=== PATIENT | male | born 1980 | race African-American/Black ===

== ENCOUNTER 2016-02-25 08:58 | Emergency (ER) | payer MEDICAID ==
[2016-02-25 09:18] VITALS: BP 145/96
--- NOTE | 2016-02-25 10:45 | ED ---
Lower Extremity - HPI Summary HPI Summary: 35yo male presents with left lower extremity pain for the last week. No known injury, but has been walking more than normal. No recent trips or travel. No recent surgery or hospitalization. No h/o DVT. No h/o cancer. No history hypercoagulable disorder. No fevers or chills. No history of leg pain. Pain is sharp with pain with movement. Worse with bending over to put socks/shoes on. Pain starts in the mid calf and radiates up. Patient also states that he has right lower back pain. Denies numbness, tingling or weakness. No medications tried at home. No loss of bowel/bladder function. No known risk factors for pathologic fracture. - History of Current Complaint Chief Complaint: EDExtremityLower Stated Complaint: LT LEG PAIN Pain Intensity: 6 - Allergies/Home Medications Allergies/Adverse Reactions: Allergies Allergy/AdvReac Type Severity Reaction Status Date / Time No Known Allergies Allergy Verified 11/11/15 07:57 PMH/Surg Hx/FS Hx/Imm Hx Endocrine/Hematology History: Denies: Hx Anticoagulant Therapy, Hx Blood Disorders, Hx Blood Transfusions, Hx Bone Marrow Disease, Hx Diabetes, Hx Systemic Lupus Erythematosus, Hx Sickle Cell Disease, Hx Thyroid Disease, Hx Anemia, Hx Unexplained Bleeding, Other Endocrine/Hematological Disorders Cardiovascular History: Reports: Hx Hypertension Denies: Hx Aneurysm, Hx Angina, Hx Angioplasty, Hx Auto Implanted Cardiovert Defib, Hx Cardiac Arrest, Hx Cardiomegaly, Hx Congenital Heart Disease, Hx Congestive Heart Failure, Hx Deep Vein Thrombosis, Hx Embolism, Hx Hypercholesterolemia, Hx Hypotension, Hx Pacemaker/ICD, Hx Peripheral Vascular Disease, Hx Rheumatic Fever, Hx Syncope, Hx Valvular Heart Disease, Other Cardiovascular Problems/Disorders Respiratory History: Reports: Hx Asthma Denies: Hx Chronic Bronchitis, Hx Chronic Obstructive Pulmonary Disease (COPD ), Hx Cystic Fibrosis, Hx Lung Cancer, Hx Pleural Effusion, Hx Pneumonia, Hx Pulmonary Edema, Hx Pulmonary Embolism, Hx Seasonal Allergies, Hx Sleep Apnea, Other Respiratory Problems/Disorders History: Denies: Hx Acute Renal Failure, Hx Benign Prostatic Hyperplasia, Hx Chronic Renal Failure, Hx Dialysis, Hx Kidney Infection, Hx Kidney Stones Musculoskeletal History: Reports: Other Musculoskeletal History - broken ankles when a child, according to patient Denies: Hx Arthritis, Hx Back Problems, Hx Bursitis, Hx Congenital Bone Abnormalities, Hx Fibromyalgia, Hx Gout, Hx Orthopedic Injury, Hx Osteoporosis, Hx Scoliosis, Hx Tendonitis Sensory History: Reports: Hx Contacts or Glasses Denies: Hx Cataracts, Hx Eye Injury, Hx Eye Prosthesis, Hx Glaucoma, Hx Legally Blind, Hx Macular Degeneration, Hx Vision Problem, Hx Deafness, Hx Hearing Aid, Hx Hearing Problem, Other Sensory Impairments Opthamlomology History: Reports: Hx Contacts or Glasses Denies: Hx Cataracts, Hx Eye Injury, Hx Eye Prosthesis, Hx Glaucoma, Hx Legally Blind, Hx Macular Degeneration, Hx Vision Problem, Other Sensory Impairments Neurological History: Denies: Hx Dementia, Hx Headaches, Hx Migraine, Hx Nerve Disease, Hx Seizures , Hx Spinal Cord Injury, Hx Transient Ischemic Attacks (TIA), Other Neuro Impairments/Disorders Psychiatric History: Reports: Hx Anxiety, Hx Depression, Hx Inpatient Treatment , Hx Community Mental Health Tx, Hx Suicide Attempt, Hx Substance Abuse Denies: Hx Attention Deficit Hyperactivity Disorder, Hx Eating Disorder, Hx Panic Disorder, Hx Post Traumatic Stress Disorder, Hx Schizophrenia, Hx Bipolar Disorder, Hx of Violent Episodes Against Others - Cancer History Hx Chemotherapy: No Hx Radiation Therapy: No Hx Palliative Cancer Treatment: No - Surgical History Surgery Procedure, Year, and Place: ankle surgery when a child Hx Anesthesia Reactions: No Infectious Disease History: No Infectious Disease History: Denies: Hx Clostridium Difficile, Hx Hepatitis, Hx Human Immunodeficiency Virus (HIV), Hx of Known/Suspected MRSA, Hx Shingles, Hx Tuberculosis, Hx Known/ Suspected VRE, Hx Known/Suspected VRSA, History Other Infectious Disease, Traveled Outside the [place] in Last 30 Days - Family History Known Family History: Positive: Cardiac Disease, Hypertension, Other - cancer mother - Social History Lives: With Family Alcohol Use: None Alcohol Amount: patient states he has not drank in 2 mths Substance Use Type: Reports: None Substance Use Comment - Amount & Last Used: last use of marijuana and cocaine " 1 mth ago" Hx Tobacco Use: Yes Smoking Status (MU): Heavy Every Day Tobacco Smoker Type: Cigarettes Amount Used/How Often: 20 cigarettes per day Length of Time of Smoking/Using Tobacco: 16 years Have You Smoked in the Last Year: Yes Review of Systems Positive: Other - LLE pain All Other Systems Reviewed And Are Negative: Yes Physical Exam - Summary Physical Exam Summary: GENERAL: Well appearing, No acute distress, well nourished. Normal gait. HEENT: Head atraumatic/normocephalic, EOMI/LEONIE, conjunctiva clear NECK: Supple with normal range of motion during conversation. CARDIAC: RRR without murmur, rub or gallop LUNGS: Clear to auscultation without wheezing, rales or rhonchi. Normal respiratory effort. Breath sounds are symmetrical and equal. ABDOMEN: Abdomen is soft and non-tender. MUSCULOSKELETAL: Moves all extremities well. There is no peripheral edema. Pedal/post tib 2+ pulse bilaterally. Sensation intact. Strength intact. Pain with active SLR, but able to SLR. No passive ROM tenderness. Patient with + homans on the left. Achilles intact with normal thompsons. No joint edema, warmth. FROM of all joints. BACK: no vertebral tenderness. No tenderness of sciatic notch. SKIN: Warm and dry, skin color reflects adequate perfusion. NEUROLOGICAL: Patient is alert and appropriate. Cranial nerves are grossly intact. PSYCHIATRIC: Appropriate affect. Vital Signs On Initial Exam: Initial Vitals Temp Pulse Resp BP Pulse Ox 98.0 F 86 16 145/96 100 02/25/16 09:05 02/25/16 09:05 02/25/16 09:05 02/25/16 09:05 02/25/16 09:05 Diagnostics - Vital Signs Vital Signs Temp Pulse Resp BP Pulse Ox 02/25/16 09:05 98.0 F 86 16 145/96 100 - Laboratory Lab Statement: Any lab studies that have been ordered have been reviewed, and results considered in the medical decision making process. - Ultrasound No standard instances Ultrasound Interpretation: No Acute Changes Ultrasound Interpretation Completed By: Radiologist Re-Evaluation - Re-Evaluation First Eval Change: Improved - improved after toradol use. Second Eval Change: Improved - Normal gait Lower Extremity Course/Dx - Course Assessment/Plan: 35yo male presents with LLE pain for the last week after increasing his exercise by walking. Pain started in the calf and radiates proximally. R/o DVT with a normal doppler. No known trauma and no risk factors for pathologic fx. No fevers or joint pain. Ambulates with normal gait. No focal vertebral tenderness. Pain of unclear etiology, but improved with NSAIDs. Advised naproxen with f/u with PCP. Discussed that could increase his bp and he needs to f/u with PCP. Patient to return with any problems, concerns or worsening symptoms. - Diagnoses Provider Diagnoses: Leg pain, left Discharge - Discharge Plan Condition: Improved Disposition: HOME Prescriptions: Naproxen [Naproxen 500 MG TABS] 500 mg PO BID #10 tab Patient Education Materials: Leg Pain (ED), Naproxen (By mouth) Referrals: Martín Ferreira MD [Primary Care Provider] - 1 Day Additional Instructions: You need to have further evaluation as discussed. Please follow up with your PCP. Return here if fever, chills, or new/worsening symptoms. Medication was given that will help with pain and inflammation. As discussed, this medication may elevate your blood pressure. Please follow up with PCP.
[2016-02-25] MEDS ORDERED: Ketorolac INJ* 30 MG/ML 1 ML VIAL IM ONE (10:54)
--- NOTE | 2016-02-25 12:10 | RAD ---
HISTORY: Atraumatic left calf pain TECHNIQUE: Multiple transverse and longitudinal ultrasound images were obtained of the veins of the left lower extremity using grayscale, color Doppler, and spectral Doppler imaging with and without compression and with augmentation. FINDINGS: VEINS: The common femoral vein, deep femoral vein, femoral vein and popliteal vein are compressible throughout their course, with normal flow on color Doppler imaging and normal response to augmentation on spectral Doppler imaging. SOFT TISSUES: Grossly normal. No large popliteal fossa cyst was identified. IMPRESSION: No sonographic evidence of deep vein thrombosis.
== END 2016-02-25 15:29 | disposition home or self-care (01) ==
LOC: ED 08:58
DX: M79.605 Pain in left leg (principal); F17.210 Nicotine dependence, cigarettes, uncomplicated; J45.909 Unspecified asthma, uncomplicated
CPT/HCPCS: 96372; 99282; J1885

== ENCOUNTER 2016-04-16 09:17 | Emergency (ER) | payer MEDICAID ==
[2016-04-16 09:47] VITALS: BP 137/88
--- NOTE | 2016-04-16 10:14 | UC ---
Throat Pain/Nasal Dima HPI - HPI Summary HPI Summary: FOUR DAYS OF COUGH SORETHROAT CONGESTION LEFT EAR FULLNESS AND ITCHINESS OF LEFT EYE - History of Current Complaint Chief Complaint: UCRespiratory Stated Complaint: SORE THROAT CONGESTION Time Seen by Provider: 04/16/16 09:44 Hx Obtained From: Patient Onset/Duration: Gradual Onset, Lasting Days, Still Present Severity: Mild Cough: Nonproductive Associated Signs & Symptoms: Positive: Dysphagia, Hoarseness, Sinus Discomfort, Fever - Epiglottits Risk Factors Epiglottis Risk Factors: Negative - Allergies/Home Medications Allergies/Adverse Reactions: Allergies Allergy/AdvReac Type Severity Reaction Status Date / Time No Known Allergies Allergy Verified 11/11/15 07:57 PMH/Surg Hx/FS Hx/Imm Hx Previously Healthy: Yes Endocrine History Of: Denies: Diabetes, Thyroid Disease Cardiovascular History Of: Reports: Hypertension Denies: Pacemaker/ICD, Congestive Heart Failure, Deep Vein Thrombosis Respiratory History Of: Reports: Asthma Denies: COPD, Pneumonia, Pulmonary Embolism GI/ History Of: Denies: Kidney Stones Neurological History Of: Denies: TIA, CVA, Dementia, Seizures, Migraine Psychological History Of: Reports: Anxiety, Depression Denies: Bipolar Disorder, Schizophrenia Cancer History Of: Denies: Lung Cancer Other History Of: Negative For: Anticoagulant Therapy - Surgical History Surgical History: Yes Surgery Procedure, Year, and Place: ankle surgery when a child - Family History Known Family History: Positive: Cardiac Disease, Hypertension, Other - cancer mother - Social History Occupation: Employed Full-time Alcohol Use: None Alcohol Amount: patient states he has not drank in 2 mths Substance Use Type: None Substance Use Comment - Amount & Last Used: last use of marijuana and cocaine " 1 mth ago" Smoking Status (MU): Heavy Every Day Tobacco Smoker Type: Cigarettes Amount Used/How Often: 20 cigarettes per day Length of Time of Smoking/Using Tobacco: 16 years Have You Smoked in the Last Year: Yes Household Exposure Type: Cigarettes Cessation Counseling: Patient Advised to Stop - Immunization History Most Recent Influenza Vaccination: unknown Most Recent Tetanus Shot: UTD Most Recent Pneumonia Vaccination: as Review of Systems Constitutional: Fever, Chills Skin: Negative Eyes: Negative ENT: Sore Throat, Ear Ache Respiratory: Cough Cardiovascular: Negative Gastrointestinal: Negative Genitourinary: Negative Motor: Negative Neurovascular: Negative Musculoskeletal: Negative Neurological: Negative Psychological: Negative All Other Systems Reviewed And Are Negative: Yes Physical Exam Triage Information Reviewed: Yes Appearance: Well-Appearing, No Pain Distress, Well-Nourished Vital Signs: Initial Vital Signs Temp 102.5 F 04/16/16 09:44 Pulse 97 04/16/16 09:44 Resp 18 04/16/16 09:44 BP 137/88 04/16/16 09:44 Pulse Ox 99 04/16/16 09:44 Vital Signs Reviewed: Yes Eye Exam: Normal Eyes: Positive: Conjunctiva Clear ENT: Positive: Hearing grossly normal, Pharyngeal erythema, Nasal congestion, TM bulging, TM dull, Tonsillar swelling Neck exam: Normal Neck: Positive: Supple, Nontender, No Lymphadenopathy Respiratory Exam: Normal Respiratory: Positive: Chest non-tender, Lungs clear, Normal breath sounds, No respiratory distress, No accessory muscle use Cardiovascular Exam: Normal Cardiovascular: Positive: RRR, No Murmur, Pulses Normal, Brisk Capillary Refill Abdominal Exam: Normal Musculoskeletal Exam: Normal Musculoskeletal: Positive: Strength Intact Neurological Exam: Normal Psychological Exam: Normal Psychological: Positive: Normal Response To Family Skin Exam: Normal Throat Pain/Nasal Course/Dx - Differential Dx/Diagnosis Differential Diagnosis/HQI/PQRI: Pharyngitis, Sinusitis, Tonsillitis, URI Provider Diagnoses: SINUSITIS Discharge - Discharge Plan Condition: Stable Disposition: HOME Prescriptions: Azithromycin TAB* [Zithromax TAB (Z-SIMON) 250 mg #6 tabs] 250 mg PO DAILY #6 tab Benzonatate CAP* [Tessalon CAP*] 100 mg PO TID PRN #12 cap PRN Reason: Cough Patient Education Materials: Sinusitis (ED) Referrals: Martín Ferreira MD [Primary Care Provider] -
== END 2016-04-16 10:03 | disposition home or self-care (01) ==
LOC: UCEAST 09:17
DX: J32.9 Chronic sinusitis, unspecified (principal); F17.210 Nicotine dependence, cigarettes, uncomplicated; I10 Essential (primary) hypertension
CPT/HCPCS: 99212; G0463

== ENCOUNTER 2016-07-12 13:21 | Inpatient (IN) | payer MEDICAID ==
[2016-07-12 16:25] LABS: Hematocrit 41 % (42-52); Hemoglobin 13.4 g/dl (14.0-18.0); Mean Corpuscular HGB Conc 33 g/dl (31-36); Mean Corpuscular Hemoglobin 27 pg (27-31); Mean Corpuscular Volume 83 fL (80-94); Mean Platelet Volume 9 um3 (7.4-10.4); Red Cell Distribution Width 15 % (10.5-15)
[2016-07-12 16:38] LABS: ALT 43 U/L (7-52); AST 33 U/L (13-39); Albumin 4.3 g/dL (3.2-5.2); Alkaline Phosphatase 79 U/L (34-104); Anion Gap 5 mmol/L (2-11); BUN/Creatinine Ratio 9.9 (8-20); Blood Urea Nitrogen 8 mg/dL (6-24); CO2 Carbon Dioxide 28 mmol/L (22-32); Calcium 9.7 mg/dL (8.6-10.3); Chloride 102 mmol/L (101-111); EGFR African American 137.9 (>60); EGFR Non-African American 107.2 (>60); Globulin 3.8 g/dL (2-4); Glucose 84 mg/dL (70-100); Potassium 3.9 mmol/L (3.5-5.0); Sodium 135 mmol/L (133-145); Total Protein 8.1 g/dL (6.4-8.9)
[2016-07-12 16:58] LABS: Acetaminophen < 15 mcg/mL; Alcohol < 10 mg/dL (<10); Salicylate < 2.50 mg/dL (<30)
[2016-07-12 17:03] LABS: TSH (Thyroid Stimulating Horm) 1.61 mcIU/mL (0.34-5.60)
[2016-07-12] MEDS ORDERED: Mouth Piece, Nicotine* 1 EACH CARTRIDGE INH SCH (19:56)
[2016-07-12] MEDS ORDERED: Nicotine GUM* 2 MG PO PRN (19:56)
[2016-07-12] MEDS ORDERED: Acetaminophen TAB* 325 MG PO PRN (19:56)
[2016-07-12] MEDS ORDERED: Al Hydrox/Mg Hydrox/Simet LIQ* 30 ML UDC PO PRN (19:56)
--- NOTE | 2016-07-12 20:41 | ED ---
Kings Summers Billy, scribed for Emmett Barnett MD on 07/12/16 at 1452 . Psychiatric Complaint - HPI Summary HPI Summary: Patient is a 36 year-old male coming to [facility] for mental health evaluation. For the last week, he has been having auditory and visual hallucinations, seeing the faces of family members. He also reports SI with a plan to overdose on pills. The patient has a history of mental health disorders including anxiety and depression. - History Of Current Complaint Chief Complaint: EDMentalHealth Time Seen by Provider: 07/12/16 14:03 Hx Obtained From: Patient Onset/Duration: Gradual Onset, Lasting Days Timing: Constant Severity Initially: Moderate Severity Currently: Moderate Aggravating Factor(s): Nothing Alleviating Factor(s): Nothing Associated Signs And Symptoms: Positive: Hallucinating Related History: Positive For: Prior Psychiatric Issues Has Suicidal: Reports: Thoughts, With A Plan Has Homicidal: Denies: Thoughts, With A Plan - Allergies/Home Medications Allergies/Adverse Reactions: Allergies Allergy/AdvReac Type Severity Reaction Status Date / Time No Known Allergies Allergy Verified 11/11/15 07:57 Home Medications: Home Medications Lisinopril/HCTZ 10/12.5(NF) [Zestoretic 10/12.5(NF)] 1 tab PO DAILY 07/12/16 [ History Confirmed 07/12/16] Nicotine Polacrilex [Nicotine Mini Lozenge] 4 mg MT Q2HR 07/12/16 [History Confirmed 07/12/16] OLANzapine TAB* [Zyprexa 10 MG TAB*] 10 mg PO DAILY 07/12/16 [History Confirmed 07/12/16] PMH/Surg Hx/FS Hx/Imm Hx Cardiovascular History: Reports: Hx Hypertension Respiratory History: Reports: Hx Asthma Musculoskeletal History: Reports: Other Musculoskeletal History - broken ankles when a child, according to patient Sensory History: Reports: Hx Contacts or Glasses Opthamlomology History: Reports: Hx Contacts or Glasses Psychiatric History: Reports: Hx Anxiety, Hx Depression, Hx Inpatient Treatment , Hx Community Mental Health Tx, Hx Suicide Attempt, Hx Substance Abuse - Cancer History Hx Chemotherapy: No Hx Radiation Therapy: No Hx Palliative Cancer Treatment: No - Surgical History Surgery Procedure, Year, and Place: ankle surgery when a child Hx Anesthesia Reactions: No Infectious Disease History: No Infectious Disease History: Denies: Hx Clostridium Difficile, Hx Hepatitis, Hx Human Immunodeficiency Virus (HIV), Hx of Known/Suspected MRSA, Hx Shingles, Hx Tuberculosis, Hx Known/ Suspected VRE, Hx Known/Suspected VRSA, History Other Infectious Disease, Traveled Outside the [place] in Last 30 Days - Family History Known Family History: Positive: Cardiac Disease, Hypertension, Other - cancer mother - Social History Alcohol Use: None Alcohol Amount: patient states he has not drank in 2 mths Substance Use Type: Reports: None Substance Use Comment - Amount & Last Used: last use of marijuana and cocaine " 1 mth ago" Hx Tobacco Use: Yes Smoking Status (MU): Heavy Every Day Tobacco Smoker Type: Cigarettes Amount Used/How Often: 20 cigarettes per day Length of Time of Smoking/Using Tobacco: 16 years Have You Smoked in the Last Year: Yes Review of Systems Negative: Fever Psychological: Other - See HPI All Other Systems Reviewed And Are Negative: Yes Physical Exam - Summary Physical Exam Summary: VITAL SIGNS: Reviewed. GENERAL: Patient is a well developed and nourished who is lying comfortable in the stretcher. Patient is not in any acute respiratory distress. HEAD AND FACE: No signs of trauma. No ecchymosis, hematomas or skull depressions. No sinus tenderness. EYES: PERRLA, EOMI x 2, No injected conjunctiva, no nystagmus. EARS: Hearing grossly intact. Ear canals and tympanic membranes are within normal limits. MOUTH: Oropharynx within normal limits. NECK: Supple, trachea is midline, no adenopathy, no JVD, no carotid bruit, no c- spine tenderness, neck with full ROM. CHEST: Symmetric, no tenderness at palpation LUNGS: Clear to auscultation bilaterally. No wheezing or crackles. CVS: Regular rate and rhythm, S1 and S2 present, no murmurs or gallops appreciated. ABDOMEN: Soft, non-tender. No signs of distention. No rebound no guarding, and no masses palpated. Bowel sounds are normal. EXTREMITIES: FROM in all major joints, no edema, no cyanosis or clubbing. NEURO: Alert and oriented x 3. No acute neurological deficits. Speech is normal and follows commands. SKIN: Dry and warm PSYCH: Depressed, quiet, positive suicidal thoughts with plan. No homicidal thoughts or plan. No signs of psychosis or pressure speech. No tangential speech. Triage Information Reviewed: Yes Vital Signs On Initial Exam: Initial Vitals Temp Pulse Resp BP Pulse Ox 98.7 F 78 18 138/76 99 07/12/16 13:23 07/12/16 13:23 07/12/16 13:23 07/12/16 13:23 07/12/16 13:23 Vital Signs Reviewed: Yes - Gustavo Coma Scale Coma Scale Total: 15 Diagnostics - Vital Signs Vital Signs Temp Pulse Resp BP Pulse Ox 07/12/16 13:26 98.7 F 78 20 138/76 98 07/12/16 13:23 98.7 F 78 18 138/76 99 - Laboratory Result Diagrams: 07/12/16 16:13 07/12/16 16:13 Lab Statement: Any lab studies that have been ordered have been reviewed, and results considered in the medical decision making process. Course/Dx - Course Assessment/Plan: Patient is a 36 year-old male coming to [facility] for mental health evaluation. For the last week, he has been having auditory and visual hallucinations, seeing the faces of family members. He also reports SI with a plan to overdose on pills. The patient has a history of mental health disorders including anxiety and depression. The patient was medically cleared for MHE. He was assessed by Dr. Sandoval who decided to admit the patient to his services for further workup and management. He is hemodynamically stable, A&Ox3. - Differential Dx/Clinical Impression Differential Diagnosis/HQI/PQRI: Positive: Depression, Suicide Attempt, Suicidal Ideation Provider Diagnosis: Depression, Suicidal ideation Discharge - Discharge Plan Condition: Stable Disposition: PSYCHIATRIC FACILITY[place] [place] Referrals: Martín Ferreira MD [Primary Care Provider] - The documentation as recorded by the Kings varma Billy accurately reflects the service I personally performed and the decisions made by me, Emmett Barnett MD.
[2016-07-12] MEDS: OLANzapine TAB* 10 MG PO SCH (22:24)
[2016-07-12 22:50] LABS: Benzodiazepine Urine Screen None Detected (None Detect)
[2016-07-13] MEDS: FLUoxetine CAP* 20 MG PO SCH (09:59)
[2016-07-13] MEDS: Vitamin THERAPEUTIC TAB PO SCH (09:59)
[2016-07-13] MEDS: Lisinopril TAB* 10 MG PO SCH (09:59)
[2016-07-13] MEDS: Hydrochlorothiazide TAB* 25 MG PO SCH (09:59)
--- NOTE | 2016-07-13 17:29 | ADMNOTE ---
Identification - Identify Employment Status: Disabled Hx Psychiatric Hospitalization: Yes Prior Psychiatric Diagnosis: Polysubstance Dependance; Schizoaffective Disorder ; Personality traits; Arrived to Hospital Via: Car History - Objective HPI: 36 yo AA male with h/o previous hospitalizations, previous diagnoses alcohol, cocaine, cannabis dependence, schizoaffective disorder, reported adherence with outpatient care at [facility] who was referred by his psychiatrist because of a one- week history of A/VH instructing him to harm self and feeling highly anxious and unsafe as he result. He was admitted on voluntary status. He denies non- compliance with prescribed meds or recent alcohol/drug use, however UDS was positive for cannabis. He lists stresses of periodically strained relationships with relatives and occupational and financial support deficits. Past Medical History: Obesity, COPD, BA, HTN, DAVID; Blindness; Lab Results: Laboratory Tests 07/12/16 22:22 Urine Opiates Screen None detected Ur Barbiturates Screen None detected Ur Phencyclidine Scrn None detected Ur Amphetamines Screen None detected U Benzodiazepines Scrn None detected Urine Cocaine Screen None detected U Cannabinoids Screen Presumptive positive H Exam Appearance: Obese Hygiene: Mal-odorous Grooming: Fairly Well Kept Psychomotor Activities: Abnormal-Decreased Exhibits Abnormal Movement: No Attitude and Relatedness: Guarded Eye Contact: Poor - Speech Quality: Unpressured Latencies: Short Quantity: Terse Patient's Decription of Mood: "Anxious" Observed Affect: Constricted Affect Consistent with: Dysphoria Patient's Thought Process: Coherent, Impoverished Thought Content: Yes Paranoid Ideation, No Passive Wish, No Suicidal Planning, No Homicidal Ideation Experiencing Hallucinations: No, Sensorium is Clear Level of Consciousness: Alert Orientation: Yes Intact Impulse Control: Intact Insight and Judgement: Fair Impression - Impression Clinical Impression: 36yo male with h/o schizoaffective disorder and polysubstance dependence referred by his psychiatrist and admitted voluntarily because of impairing psychotic symptoms. Inpatient DSM-IV Dx: Schizoaffective Disorder, unspecifiied type; Polysubstance use disorder (Alcohol, cannabis, cocaine); personality traits. Merits Inpatient Hospitalization: Yes Plan - Treatment Plan Continued Medication Management: Continue Outpt Medication Medications: Current Medications Acetaminophen (Tylenol Tab*) 650 mg PO Q4H PRN PRN Reason: PAIN or TEMP > 101 F Al Hydrox/Mg Hydrox/Simethicone (Maalox Plus*) 30 ml PO Q4H PRN PRN Reason: INDIGESTION Device (Nicotine Mouth Piece*) 1 each INH .[facility] Fluoxetine HCl (Prozac Cap*) 40 mg PO DAILY [facility] Last Admin: 07/13/16 09:59 Dose: 40 mg Hydrochlorothiazide (Hydrodiuril Tab*) 12.5 mg PO DAILY [facility] Last Admin: 07/13/16 09:59 Dose: 12.5 mg Lisinopril (Prinivil Tab*) 10 mg PO DAILY [facility] Last Admin: 07/13/16 09:59 Dose: 10 mg Multivitamins (Theragran Tab*) 1 tab PO DAILY [facility] Last Admin: 07/13/16 09:59 Dose: 1 tab Nicotine (Nicotine Inhaler*) 10 mg INH Q2H PRN PRN Reason: CRAVING Nicotine Polacrilex (Nicotine Gum*) 2 mg PO Q2H PRN PRN Reason: CRAVING Olanzapine (Zyprexa Tab*) 10 mg PO 2100 [facility] Last Admin: 07/12/16 22:24 Dose: 10 mg - Discharge Plan Discharge Plan: Outpatient Follow Up Outpatient Program: [facility]
[2016-07-13] MEDS ORDERED: Mouth Piece, Nicotine* 1 EACH CARTRIDGE ONE (18:23)
[2016-07-13] MEDS: Nicotine Inhaler* 10 MG AMP INH PRN ×2 (18:24→21:01)
[2016-07-13] MEDS: OLANzapine TAB* 10 MG PO SCH (21:01)
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
--- NOTE | 2016-07-14 08:33 | PN ---
Subjective - Subjective Service Type: 57639 Hosp care 15 min low complexity Subjective: Reports ongoing auditory hallucinations, denies command hallucinations, reports some passive suicidality. Evasive when asked if he had been using illicit drugs or missed doses of Zyprexa before admission. Does report insomnia as well. On admission he was kept on Zyprexa. Objective - Appearance Appearance: Well Developed/Nourished, Healthy Appearing, Obese Dysmorphic Features: No Hygiene: Normal Grooming: Well Kept - Behavior Psychomotor Activities: Abnormal-Decreased Exhibits Abnormal Movement: No - Attitude and Relatedness Attitude and Relatedness: Cooperative Eye Contact: Fair - Speech Quality: Unpressured Latencies: Normal Quantity: Terse - Mood Patient's Decription of Mood: "Sad" - Affect Observed Affect: Constricted Affect Consistent with: Dysphoria - Thought Process Patient's Thought Process: Coherent Thought Content: Yes Passive Wish - at times only, No Suicidal Planning, No Homicidal Ideation, No Paranoid Ideation - Sensorium Experiencing Hallucinations: No, Sensorium is Clear Type of Hallucinations: Visual: No, Auditory: No, Command: No - Level of Consciousness Level of Consciousness: Alert Orientation: Yes Intact, Yes Orientated to Time, Yes Orientated to Place, Yes Orientated to Person - Impulse Control Impulse Control: Tenuous - Insight and Judgement Insight and Judgement: Fair - Group Participation Particating in Group Activities: Yes - Medication Management Medication Management Adherence: Yes Assessment - Assessment Merits Inpatient Hospitalization: For Immediate Safety, For Stabilization Inpatient DSM-IV Dx: Schizoaffective Disorder, unspecifiied type; Polysubstance use disorder (Alcohol, cannabis, cocaine); personality traits. Clinical Impression: Man with chronic schizoaffective disorder and ongoing cannabis use. He has acutely decompensated. For now I would raise Zyprexa for stabilization as well as providing individual and group therapies. Inpatient doctors may consider change of antipsychotic during the week if it is merited. Plan - Plan Treatment Plan: Name: EARLE MONCADA Birthdate: 1980 [id number] Continued Medication Management: Different Medication - raise Zyprexa to 15 mg HS Medications: Current Medications Acetaminophen (Tylenol Tab*) 650 mg PO Q4H PRN PRN Reason: PAIN or TEMP > 101 F Al Hydrox/Mg Hydrox/Simethicone (Maalox Plus*) 30 ml PO Q4H PRN PRN Reason: INDIGESTION Device (Nicotine Mouth Piece*) 1 each INH [facility] Fluoxetine HCl (Prozac Cap*) 40 mg PO DAILY [facility] Last Admin: 07/13/16 09:59 Dose: 40 mg Hydrochlorothiazide (Hydrodiuril Tab*) 12.5 mg PO DAILY [facility] Last Admin: 07/13/16 09:59 Dose: 12.5 mg Lisinopril (Prinivil Tab*) 10 mg PO DAILY [facility] Last Admin: 07/13/16 09:59 Dose: 10 mg Multivitamins (Theragran Tab*) 1 tab PO DAILY [facility] Last Admin: 07/13/16 09:59 Dose: 1 tab Nicotine (Nicotine Inhaler*) 10 mg INH Q2H PRN PRN Reason: CRAVING Last Admin: 07/13/16 21:01 Dose: 10 mg Nicotine Polacrilex (Nicotine Gum*) 2 mg PO Q2H PRN PRN Reason: CRAVING Olanzapine (Zyprexa Tab*) 10 mg PO 2100 [facility] Last Admin: 07/13/16 21:01 Dose: 10 mg - Discharge Plan Discharge Plan: Outpatient Follow Up Outpatient Program: [facility]
[2016-07-14] MEDS: Hydrochlorothiazide TAB* 25 MG PO SCH (09:30)
[2016-07-14] MEDS: FLUoxetine CAP* 20 MG PO SCH (09:30)
[2016-07-14] MEDS: Lisinopril TAB* 10 MG PO SCH (09:30)
[2016-07-14] MEDS: Vitamin THERAPEUTIC TAB PO SCH (09:31)
[2016-07-14] MEDS: OLANzapine TAB* 5 MG PO SCH (21:13)
[2016-07-14] MEDS: Docusate CAP* 100 MG PO SCH (23:29)
[2016-07-15] MEDS: Docusate CAP* 100 MG PO SCH ×2 (08:22→21:42)
[2016-07-15] MEDS: Hydrochlorothiazide TAB* 25 MG PO SCH (08:23)
[2016-07-15] MEDS: FLUoxetine CAP* 20 MG PO SCH (08:23)
[2016-07-15] MEDS: Vitamin THERAPEUTIC TAB PO SCH (08:24)
[2016-07-15] MEDS: Lisinopril TAB* 10 MG PO SCH (08:26)
--- NOTE | 2016-07-15 13:35 | PN ---
Subjective - Subjective Service Type: 57814 Hosp care 15 min low complexity Subjective: Riley reports full remission of hallucination and of dangerous intent/plan on increased dose of Zyprexa. He has no physical complaints. He has been attending groups. Objective - Appearance Appearance: Healthy Appearing Dysmorphic Features: No Hygiene: Normal Grooming: Fairly Well Kept - Behavior Psychomotor Activities: Normal Exhibits Abnormal Movement: No - Attitude and Relatedness Attitude and Relatedness: Cooperative Eye Contact: Good - Speech Quality: Unpressured Latencies: Normal Quantity: Appropriate - Mood Patient's Decription of Mood: "Good" - Affect Observed Affect: Fair Affect Consistent with: Euthymia - Thought Process Patient's Thought Process: Coherent, Goal Directed Thought Content: No Passive Wish, No Suicidal Planning, No Homicidal Ideation, No Paranoid Ideation - Sensorium Experiencing Hallucinations: No, Sensorium is Clear Type of Hallucinations: Visual: No, Auditory: No, Command: No - Level of Consciousness Level of Consciousness: Alert Orientation: Yes Intact, Yes Orientated to Time, Yes Orientated to Place, Yes Orientated to Person - Impulse Control Impulse Control: Intact - Insight and Judgement Insight and Judgement: Fair - Group Participation Particating in Group Activities: Yes - Medication Management Medication Management Adherence: Yes Assessment - Assessment Merits Inpatient Hospitalization: For Stabilization, Consolidate Improvements, For Discharge Planning Inpatient DSM-IV Dx: Schizoaffective Disorder, unspecifiied type; Polysubstance use disorder (Alcohol, cannabis, cocaine); personality traits. Clinical Impression: Riley Moncada is a 36-year-old man admitted due to safety concerns from report of hallucinations with command to kill himself. His Zyprexa dose was increased from 10 to 15 mg nightly, and he reports remission of these concerning symptoms. We will monitor for sustained remission of symptoms, and plan toward discharge in the next day or 2 if he has stable remission. Plan - Plan Treatment Plan: Name: RILEY MONCADA Birthdate: 1980 [id number] Monitor for sustained remission of hallucinations with CAH to kill self. Encourage groups/milieu. Likely discharge Friday or Friday. Medications: Current Medications Acetaminophen (Tylenol Tab*) 650 mg PO Q4H PRN PRN Reason: PAIN or TEMP > 101 F Al Hydrox/Mg Hydrox/Simethicone (Maalox Plus*) 30 ml PO Q4H PRN PRN Reason: INDIGESTION Last Admin: 07/14/16 20:08 Dose: 30 ml Device (Nicotine Mouth Piece*) 1 each INH [facility] Docusate Sodium (Colace Cap*) 100 mg PO BID [facility] Last Admin: 07/15/16 08:22 Dose: 100 mg Fluoxetine HCl (Prozac Cap*) 40 mg PO DAILY [facility] Last Admin: 07/15/16 08:23 Dose: 40 mg Hydrochlorothiazide (Hydrodiuril Tab*) 12.5 mg PO DAILY [facility] Last Admin: 07/15/16 08:23 Dose: 12.5 mg Lisinopril (Prinivil Tab*) 10 mg PO DAILY [facility] Last Admin: 07/15/16 08:26 Dose: 10 mg Multivitamins (Theragran Tab*) 1 tab PO DAILY [facility] Last Admin: 07/15/16 08:24 Dose: Not Given Nicotine (Nicotine Inhaler*) 10 mg INH Q2H PRN PRN Reason: CRAVING Last Admin: 07/13/16 21:01 Dose: 10 mg Nicotine Polacrilex (Nicotine Gum*) 2 mg PO Q2H PRN PRN Reason: CRAVING Olanzapine (Zyprexa Tab*) 15 mg PO BEDTIME [facility] Last Admin: 07/14/16 21:13 Dose: 15 mg - Discharge Plan Discharge Plan: Outpatient Follow Up Outpatient Program: [facility]
[2016-07-15] MEDS: OLANzapine TAB* 5 MG PO SCH (20:49)
[2016-07-15] MEDS: Nicotine Inhaler* 10 MG AMP INH PRN (20:58)
[2016-07-15] MEDS ORDERED: Magnesium CITRATE* 300 ML BTL PO ONE (22:00)
[2016-07-16 07:49] VITALS: BP 142/73
[2016-07-16] MEDS: FLUoxetine CAP* 20 MG PO SCH (08:24)
[2016-07-16] MEDS: Hydrochlorothiazide TAB* 25 MG PO SCH (08:24)
[2016-07-16] MEDS: Lisinopril TAB* 10 MG PO SCH (08:24)
[2016-07-16] MEDS: Vitamin THERAPEUTIC TAB PO SCH (08:25)
[2016-07-16] MEDS: Docusate CAP* 100 MG PO SCH (08:25)
--- NOTE | 2016-07-16 11:13 | DS ---
Subjective - Subjective Service Types: 01479 [facility] Day Mgmt simple under 30 min Discharge Date: 07/16/16 Subjective: Riley reports continued remission of all psychotic symptoms and sustained remission of any dangerous intent or plan. He has no physical complaints. He asks for discharge today. Objective - Appearance Appearance: Healthy Appearing Dysmorphic Features: No Hygiene: Mal-odorous Grooming: Fairly Well Kept - Behavior Psychomotor Activities: Normal Exhibits Abnormal Movement: No - Attitude and Relatedness Attitude and Relatedness: Cooperative Eye Contact: Good - Speech Quality: Unpressured Latencies: Normal Quantity: Terse - Mood Patient's Decription of Mood: "Good" - Affect Observed Affect: Fair Affect Consistent with: Euthymia - Thought Process Patient's Thought Process: Coherent, Goal Directed Thought Content: No Passive Wish, No Suicidal Planning, No Homicidal Ideation, No Paranoid Ideation - Sensorium Experiencing Hallucinations: No, Sensorium is Clear Type of Hallucinations: Visual: No, Auditory: No, Command: No - Level of Consciousness Level of Consciousness: Alert Orientation: Yes Intact, Yes Orientated to Time, Yes Orientated to Place, Yes Orientated to Person - Impulse Control Impulse Control: Intact - Insight and Judgement Insight and Judgement: Fair - Group Participation Particating in Group Activities: Yes - Medication Management Medication Management Adherence: Yes Treatment Course & Assessment Clinical Course & Impression: Riley Marino is a 36-year-old man admitted due to safety concerns from report of hallucinations with command to kill himself. His Zyprexa dose was increased from 10 to 15 mg nightly, and he reports remission of these concerning symptoms. We will monitor for sustained remission of symptoms, and plan toward discharge in the next day or 2 if he has stable remission. 07.16.16 Riley continues to report sustained remission of psychosis with increased dose Zyprexa. His last report of psychotic symptoms was over 48 hours ago. He also denies any dangerous intent or plan or any mood disturbance. Nursing and social work notes agree with his report of safety. He is assessed as at no acutely increased risk of harm to self or others and capable of adequate self- care to avoid harm. He is therefore cleared for discharge from this voluntary admission per his request, as there is no legal basis for retention against his will, and he reports clinical stability. He has participated in a few groups. He has been med and meal compliant. Aftercare will be with Dr Whitfield and others at [facility]. I informed Dr Whitfield by voicemail of his planned discharge today, and of his increase of Zyprexa from 10 to 15 mg. Merits Inpatient Hospitalization: No Clear for Discharge: Adequate Clinical Respons, Acceptable Safety Profile, Low Utility of Inpt Care Inpatient DSM-IV Dx: Schizoaffective Disorder, unspecifiied type; Polysubstance use disorder (Alcohol, cannabis, cocaine); personality traits. - [place] II MR and Personality Disorder: Deferred - [place] III Medical Illness: COPD, DAVID, HTN, obesity, bronchial asthma - [place] IV Stressors: limited finances, limited day structure Family: limited involvement Primary Support Group: domestic partner - [place] V [id number]: 60 Estimate of Highest-Past Year: 60 Discharge Planning - Discharge Planning Discharge Plan: Outpatient Follow Up Outpatient Program: [facility] Recommendations for Continuing Care: Medication Management, Psychotherapy, Primary Care Followup Medications: Docusate Sodium (Colace Cap*) 100 mg PO BID [facility] Last Admin: 07/16/16 08:25 Dose: Not Given Fluoxetine HCl (Prozac Cap*) 40 mg PO DAILY [facility] Last Admin: 07/16/16 08:24 Dose: 40 mg Hydrochlorothiazide (Hydrodiuril Tab*) 12.5 mg PO DAILY [facility] Last Admin: 07/16/16 08:24 Dose: 12.5 mg Lisinopril (Prinivil Tab*) 10 mg PO DAILY [facility] Last Admin: 07/16/16 08:24 Dose: 10 mg Refuses stop-smoking aids. Olanzapine (Zyprexa Tab*) 15 mg PO BEDTIME [facility] Last Admin: 07/15/16 20:49 Dose: 15 mg Discharge Planning: Prescriptions provided for discharge [x] Yes [] No Follow up care details as per social work arrangements. Patient response to discharge plan: [x] eager for discharge [x] agreeable with discharge plan [] ambivalent about discharge [] disagrees with discharge today
[2016-07-16] MEDS: Nicotine Inhaler* 10 MG AMP INH PRN (13:27)
== END 2016-07-16 14:05 | disposition home or self-care (01) | DRG 750 ==
LOC: ED 13:21 → BSU 18:00 → ED 19:41
PROVIDERS: ADMIT Psychiatry & Neurology Psychiatry; ATTEND Psychiatry & Neurology Psychiatry
DX: F25.9 Schizoaffective disorder, unspecified (principal); I10 Essential (primary) hypertension; F10.10 Alcohol abuse, uncomplicated; F12.10 Cannabis abuse, uncomplicated; F14.10 Cocaine abuse, uncomplicated; J44.9 Chronic obstructive pulmonary disease, unspecified; G47.33 Obstructive sleep apnea (adult) (pediatric); E66.9 Obesity, unspecified; Z68.22 Body mass index [BMI] 22.0-22.9, adult; Z79.899 Other long term (current) drug therapy
CPT/HCPCS: 36415; 80053; 80307; 80320; 80329; 84443; 85025; 94660; 99222; 99231; 99238; A9270-GY; G0480

== ENCOUNTER 2017-10-26 14:44 | Emergency (ER) | payer MEDICAID ==
[2017-10-26] MEDS ORDERED: Ketorolac INJ* 60 MG/2 ML VIAL IM ONE (15:28)
[2017-10-26 15:41] VITALS: BP 148/74
--- NOTE | 2017-10-26 15:46 | ED ---
Lower Extremity - HPI Summary HPI Summary: Patient is a 37-year-old male presenting to the ED with left medial ankle pain radiating up into the medial lower leg on palpation. Symptoms have been present 3 days. She he denies any injury or trauma to the area. He has fractured the ankle several years ago. He states the pain began after a long workday. Patient is a smoker, however denies any recent travel. Denies any erythema to the area. Endorses some slight swelling over the dorsum of the foot , but no pain or swelling to the calf muscle. Worse with ambulation, better with rest. He has not tried ibuprofen or ice for relief. - History of Current Complaint Chief Complaint: EDExtremityLower Stated Complaint: LEGS PAINFUL,LT LEG SWELLING Time Seen by Provider: 10/26/17 15:16 Hx Obtained From: Patient Mechanism Of Injury: Other - no known injury Onset of Pain: Days Onset/Duration: Days Severity Initially: Mild Severity Currently: Mild Pain Intensity: 4 Pain Scale Used: 0-10 Numeric Location: Is Discrete @ - medial left ankle tenderness worse with palpation Associated Signs And Symptoms: Positive: Swelling - dorsum of the foot. Negative: Weakness, Dizziness Aggravating Factor(s): Ambulation Alleviating Factor(s): Rest Able to Bear Weight: Yes - Risk Factors Gout Risk Factors: Male, Diabetes, Hypertension, Renal Disease, Obesity, Peripherial Vascular Disease DVT Risk Factors: Negative Septic Arthritis Risk Factor: Negative - Allergies/Home Medications Allergies/Adverse Reactions: Allergies Allergy/AdvReac Type Severity Reaction Status Date / Time No Known Allergies Allergy Verified 10/26/17 14:49 PMH/Surg Hx/FS Hx/Imm Hx Previously Healthy: Yes Endocrine/Hematology History: Denies: Hx Anticoagulant Therapy, Hx Blood Disorders, Hx Blood Transfusions, Hx Bone Marrow Disease, Hx Diabetes, Hx Systemic Lupus Erythematosus, Hx Sickle Cell Disease, Hx Thyroid Disease, Hx Anemia, Hx Unexplained Bleeding, Other Endocrine/Hematological Disorders Cardiovascular History: Reports: Hx Hypertension Denies: Hx Aneurysm, Hx Angina, Hx Angioplasty, Hx Auto Implanted Cardiovert Defib, Hx Cardiac Arrest, Hx Cardiomegaly, Hx Congenital Heart Disease, Hx Congestive Heart Failure, Hx Deep Vein Thrombosis, Hx Embolism, Hx Hypercholesterolemia, Hx Hypotension, Hx Pacemaker/ICD, Hx Peripheral Vascular Disease, Hx Rheumatic Fever, Hx Syncope, Hx Valvular Heart Disease, Other Cardiovascular Problems/Disorders Respiratory History: Reports: Hx Asthma, Hx Sleep Apnea Denies: Hx Chronic Bronchitis, Hx Chronic Obstructive Pulmonary Disease (COPD ), Hx Cystic Fibrosis, Hx Lung Cancer, Hx Pleural Effusion, Hx Pneumonia, Hx Pulmonary Edema, Hx Pulmonary Embolism, Hx Seasonal Allergies, Other Respiratory Problems/Disorders History: Denies: Hx Acute Renal Failure, Hx Benign Prostatic Hyperplasia, Hx Chronic Renal Failure, Hx Dialysis, Hx Kidney Infection, Hx Kidney Stones Musculoskeletal History: Reports: Hx Back Problems, Other Musculoskeletal History - broken ankles when a child, according to patient Denies: Hx Arthritis, Hx Bursitis, Hx Congenital Bone Abnormalities, Hx Fibromyalgia, Hx Gout, Hx Orthopedic Injury, Hx Osteoporosis, Hx Scoliosis, Hx Tendonitis Sensory History: Reports: Hx Contacts or Glasses - Pt. did not come to hospital w/ his glasses. Denies: Hx Cataracts, Hx Eye Injury, Hx Eye Prosthesis, Hx Glaucoma, Hx Legally Blind, Hx Macular Degeneration, Hx Vision Problem, Hx Deafness, Hx Hearing Aid, Hx Hearing Problem, Other Sensory Impairments Opthamlomology History: Reports: Hx Contacts or Glasses - Pt. did not come to hospital w/ his glasses. Denies: Hx Cataracts, Hx Eye Injury, Hx Eye Prosthesis, Hx Glaucoma, Hx Legally Blind, Hx Macular Degeneration, Hx Vision Problem, Other Sensory Impairments Neurological History: Denies: Hx Dementia, Hx Headaches, Hx Migraine, Hx Nerve Disease, Hx Seizures , Hx Spinal Cord Injury, Hx Transient Ischemic Attacks (TIA), Other Neuro Impairments/Disorders Psychiatric History: Reports: Hx Anxiety, Hx Depression, Hx Post Traumatic Stress Disorder, Hx Inpatient Treatment, Hx Community Mental Health Tx, Hx Schizophrenia, Hx Suicide Attempt, Hx of Violent Episodes Against Others, Hx Substance Abuse Denies: Hx Attention Deficit Hyperactivity Disorder, Hx Eating Disorder, Hx Panic Disorder, Hx Bipolar Disorder - Cancer History Hx Chemotherapy: No Hx Radiation Therapy: No Hx Palliative Cancer Treatment: No - Surgical History Surgery Procedure, Year, and Place: ankle surgery when a child Hx Anesthesia Reactions: No - Immunization History Hx Pertussis Vaccination: No Immunizations Up to Date: Yes Infectious Disease History: No Infectious Disease History: Denies: Hx Clostridium Difficile, Hx Hepatitis, Hx Human Immunodeficiency Virus (HIV), Hx of Known/Suspected MRSA, Hx Shingles, Hx Tuberculosis, Hx Known/ Suspected VRE, Hx Known/Suspected VRSA, History Other Infectious Disease, Traveled Outside the [place] in Last 30 Days - Family History Known Family History: Positive: Cardiac Disease, Hypertension, Other - cancer mother - Social History Occupation: Employed Part-time Lives: With Family Alcohol Use: None Alcohol Amount: patient states he has not drank in 2 mths Hx Substance Use: Yes Substance Use Type: Reports: Marijuana Substance Use Comment - Amount & Last Used: last use of marijuana and cocaine " 1 mth ago" Hx Tobacco Use: Yes Smoking Status (MU): Heavy Every Day Tobacco Smoker Type: Cigarettes Amount Used/How Often: 20 cigarettes per day Length of Time of Smoking/Using Tobacco: 16 years Have You Smoked in the Last Year: Yes Review of Systems Constitutional: Negative Negative: Fever, Chills, Fatigue, Skin Diaphoresis Negative: Palpitations, Chest Pain Negative: Shortness Of Breath, Cough Genitourinary: Negative Positive: no symptoms reported Positive: Arthralgia, Myalgia Skin: Negative Neurological: Negative All Other Systems Reviewed And Are Negative: Yes Physical Exam Triage Information Reviewed: Yes Vital Signs On Initial Exam: Initial Vitals Temp Pulse Resp BP Pulse Ox 99.0 F 86 16 145/79 99 10/26/17 14:48 10/26/17 14:48 10/26/17 14:48 10/26/17 14:48 10/26/17 14:48 Vital Signs Reviewed: Yes Appearance: Positive: Well-Appearing, Well-Nourished Skin: Positive: Warm, Skin Color Reflects Adequate Perfusion Head/Face: Positive: Normal Head/Face Inspection Eyes: Positive: EOMI, NAYELI, Conjunctiva Clear Neck: Positive: Supple, No Lymphadenopathy Respiratory/Lung Sounds: Positive: Clear to Auscultation, Breath Sounds Present Cardiovascular: Positive: RRR, Pulses are Symmetrical in both Upper and Lower Extremities Musculoskeletal: Positive: Pain @ - medial left ankle pain on palpation/pressure Neurological: Positive: Sensory/Motor Intact, Speech Normal Psychiatric: Positive: Normal, Affect/Mood Appropriate Diagnostics - Vital Signs Vital Signs Temp Pulse Resp BP Pulse Ox 10/26/17 15:40 98.7 F 84 16 148/74 97 10/26/17 14:48 99.0 F 86 16 145/79 99 - Laboratory Lab Statement: Any lab studies that have been ordered have been reviewed, and results considered in the medical decision making process. Lower Extremity Course/Dx - Course Course Of Treatment: Patient is evaluated for left medial ankle tenderness on palpation. Worse with deep palpation, better with ice and elevation. He is not tried ibuprofen or other NSAIDs for relief. Patient smoker, however denies any recent travel. The etiology is most likely a tendinitis secondary to a possible tarsal tunnel syndrome for posterior medial ankle pain. No plantar surface pain. Patient is encouraged ibuprofen, ice, elevation and rest over the next few days. He is given Toradol in the ED and given Toradol prescription for home. There is no erythema, Homans sign negative and no swelling to the calf muscle. No tenderness to the calf muscle. Low risk for DVT based on physical exam findings. - Diagnoses Differential Diagnosis/HQI/PQRI: Positive: Sprain, Strain, Tendonitis, Tenosynovitis Provider Diagnoses: Tendinitis Discharge - Sign-Out/Discharge Documenting (check all that apply): Patient Departure - Discharge Plan Condition: Stable Disposition: HOME Prescriptions: Ketorolac TAB * [Toradol TAB *] 10 mg PO Q6H #16 tab Patient Education Materials: Tendinitis (ED) Forms: *Work Release Referrals: Martín Ferreira MD [Primary Care Provider] - Additional Instructions: Toradol four times daily 4 days After this time you may switch to ibuprofen 600mg 3 times daily Ice the area several times per day Elevate as much as possible Note is given for work - Billing Disposition and Condition Condition: STABLE Disposition: Home
== END 2017-10-26 15:40 | disposition home or self-care (01) ==
LOC: ED 14:44
DX: M77.9 Enthesopathy, unspecified (principal); F17.210 Nicotine dependence, cigarettes, uncomplicated; I10 Essential (primary) hypertension
CPT/HCPCS: 96372; 99282; J1885

== ENCOUNTER 2017-11-06 11:33 | Emergency (ER) | payer MEDICAID ==
--- NOTE | 2017-11-06 11:57 | UC ---
Respiratory Complaint HPI - HPI Summary HPI Summary: 37-year-old male presents with upper respiratory infectious symptoms. Patient does have diabetes as well as asthma and is an active smoker. He states he has had sinus pressure with congestion and coughing for about 48 hours and feels worse today than yesterday. He is unsure about a fever otherwise denies chest pressure or excessive shortness of breath. He has had some mild loose stools as well. He is not sure of any sick contacts. - History of Current Complaint Stated Complaint: CHEST CONGESTION, AND FEVER Time Seen by Provider: 11/06/17 11:51 Hx Obtained From: Patient Onset/Duration: Gradual Onset Timing: Constant Character: Cough: Productive Associated Signs And Symptoms: Positive: Negative - Allergies/Home Medications Allergies/Adverse Reactions: Allergies Allergy/AdvReac Type Severity Reaction Status Date / Time No Known Allergies Allergy Verified 10/26/17 14:49 PMH/Surg Hx/FS Hx/Imm Hx Previously Healthy: Yes Endocrine History: Diabetes, Dyslipidemia Cardiovascular History: Hypertension Respiratory History: Asthma Other History Of: Negative For: Anticoagulant Therapy - Surgical History Surgical History: Yes Surgery Procedure, Year, and Place: ankle surgery when a child - Family History Known Family History: Positive: Cardiac Disease, Hypertension, Other - cancer mother - Social History Occupation: Employed Full-time Lives: With Family Alcohol Use: None Alcohol Amount: patient states he has not drank in 2 mths Substance Use Type: Marijuana Substance Use Comment - Amount & Last Used: last use of marijuana and cocaine " 1 mth ago" Smoking Status (MU): Heavy Every Day Tobacco Smoker Type: Cigarettes Amount Used/How Often: 20 cigarettes per day Length of Time of Smoking/Using Tobacco: 16 years Have You Smoked in the Last Year: Yes Household Exposure Type: Cigarettes - Immunization History Most Recent Influenza Vaccination: unknown Most Recent Tetanus Shot: UTD Most Recent Pneumonia Vaccination: as infant Review of Systems Constitutional: Fever, Fatigue ENT: Sore Throat, Ear Ache, Nasal Discharge, Sinus Congestion, Sinus Pain/ Tenderness Respiratory: Cough Is Patient Immunocompromised?: No All Other Systems Reviewed And Are Negative: Yes Physical Exam Triage Information Reviewed: Yes Appearance: Well-Appearing, No Pain Distress, Well-Nourished Vital Signs Reviewed: Yes Eye Exam: Normal ENT Exam: Normal ENT: Positive: Nasal congestion, TM dull, Sinus tenderness Dental Exam: Normal Neck exam: Normal Neck: Positive: 1 Respiratory Exam: Normal Cardiovascular Exam: Normal Musculoskeletal Exam: Normal Neurological Exam: Normal Psychological Exam: Normal Skin Exam: Normal Respiratory Course/Dx - Course Course Of Treatment: treat as viral infection but if symptoms persist or worsen he will pick of antibiotics and begin those. He is aware of risks and side effects of antibiotics. - Differential Dx/Diagnosis Differential Diagnosis/HQI/PQRI: Bronchitis, Lower Resp Infection, Sinusitis Provider Diagnoses: sinusitis Discharge - Sign-Out/Discharge Documenting (check all that apply): Patient Departure All imaging exams completed and their final reports reviewed: No Studies - Discharge Plan Condition: Good Disposition: HOME Prescriptions: Amoxicillin/Clavulanate TAB* [Augmentin TAB 875*] 875 mg PO BID 7 Days #14 tab Patient Education Materials: Sinusitis (ED) Forms: *Work Release Referrals: Martín Ferreira MD [Primary Care Provider] - 4 Days Additional Instructions: As we discussed it appears you are currently experiencing VIRAL SINUSITIS: YOU ARE ADVISED TO CONTINUE WITH FLONASE AND PLEASE ADD THE JESSIKA MED SINUS RINSE / NETTI POT TO YOUR REGIMEN AND IF YOUR SYMPTOMS WORSEN OVER THE NEXT 3-4 DAYS THEN YOU MAY START THE ANTIBIOTICS - Billing Disposition and Condition Condition: GOOD Disposition: Home
[2017-11-06 12:32] VITALS: BP 00/00
== END 2017-11-06 12:34 | disposition home or self-care (01) ==
LOC: UCEAST 11:33
DX: J32.9 Chronic sinusitis, unspecified (principal); F17.210 Nicotine dependence, cigarettes, uncomplicated
CPT/HCPCS: 99212; G0463

== ENCOUNTER 2017-11-11 08:53 | Emergency (ER) | payer MEDICAID ==
[2017-11-11] MEDS ORDERED: Lidocaine 1%* 5 ML VIAL INJ ONE (09:40)
[2017-11-11 10:15] LABS: ABS Basophils 0.1 10^3/ul (0-0.2); ABS Eosinophils 0.1 10^3/ul (0-0.6); ABS Lymphocytes 2.8 10^3/ul (1.0-4.8); ABS Monocytes 0.8 10^3/ul (0-0.8); ABS Neutrophils 9.9 10^3/ul (1.5-7.7); ABS Nucleated RBC 0 10^3/ul; Eosinophil % 0.4 % (0-6); Hematocrit 40 % (42-52); Hemoglobin 13.1 g/dl (14.0-18.0); Lymphocyte % 20.8 % (25-47); Mean Corpuscular HGB Conc 33 g/dl (31-36); Mean Corpuscular Hemoglobin 27 pg (27-31); Mean Corpuscular Volume 82 fL (80-94); Mean Platelet Volume 8.4 um3 (7.4-10.4); Nucleated Red Blood Cells % 0.1; Platelet Count 246 10^3/ul (150-450); Red Blood Count 4.86 10^6/ul (4.00-5.40); Red Cell Distribution Width 15 % (10.5-15); White Blood Count 13.7 10^3/ul (3.5-10.8)
[2017-11-11 10:31] LABS: EGFR Non-African American 116.6 (>60)
[2017-11-11] MEDS ORDERED: Clindamycin CAP* 150 MG PO ONE (10:39)
[2017-11-11 11:08] VITALS: BP 143/92
--- NOTE | 2017-11-11 12:20 | ED ---
Skin Complaint - HPI Summary HPI Summary: Patient is a 37-year-old who presents emergency departments for painful lump to left axilla times roughly one week. He denies fever, chills, nausea, vomiting. He has of history of diabetes and takes glipizide. Patient states he has not checked his sugars over the last few days. Patient states painful lump to left as well as breast become larger over the last several days. Symptoms are moderate in severity. Moving and touching area makes symptoms worse. Nothing makes symptoms better. - History of Current Complaint Chief Complaint: EDGeneral Time Seen by Provider: 11/11/17 09:19 Stated Complaint: LUMP ON LT ARM Hx Obtained From: Patient Pain Intensity: 5 Pain Scale Used: 0-10 Numeric - Additional Pertinent History Primary Care Physician: MARYAN - Allergy/Home Medications Allergies/Adverse Reactions: Allergies Allergy/AdvReac Type Severity Reaction Status Date / Time No Known Allergies Allergy Verified 11/11/17 09:07 Home Medications: Home Medications Quetiapine Fumarate [Quetiapine 100 mg] 100 mg PO DAILY 11/11/17 [History Confirmed 11/11/17] glipiZIDE [Glipizide] 5 mg PO DAILY 11/11/17 [History Confirmed 11/11/17] PMH/Surg Hx/FS Hx/Imm Hx Previously Healthy: Yes Endocrine/Hematology History: Denies: Hx Anticoagulant Therapy, Hx Blood Disorders, Hx Blood Transfusions, Hx Bone Marrow Disease, Hx Diabetes, Hx Systemic Lupus Erythematosus, Hx Sickle Cell Disease, Hx Thyroid Disease, Hx Anemia, Hx Unexplained Bleeding, Other Endocrine/Hematological Disorders Cardiovascular History: Reports: Hx Hypertension Denies: Hx Aneurysm, Hx Angina, Hx Angioplasty, Hx Auto Implanted Cardiovert Defib, Hx Cardiac Arrest, Hx Cardiomegaly, Hx Congenital Heart Disease, Hx Congestive Heart Failure, Hx Deep Vein Thrombosis, Hx Embolism, Hx Hypercholesterolemia, Hx Hypotension, Hx Pacemaker/ICD, Hx Peripheral Vascular Disease, Hx Rheumatic Fever, Hx Syncope, Hx Valvular Heart Disease, Other Cardiovascular Problems/Disorders Respiratory History: Reports: Hx Asthma, Hx Sleep Apnea Denies: Hx Chronic Bronchitis, Hx Chronic Obstructive Pulmonary Disease (COPD ), Hx Cystic Fibrosis, Hx Lung Cancer, Hx Pleural Effusion, Hx Pneumonia, Hx Pulmonary Edema, Hx Pulmonary Embolism, Hx Seasonal Allergies, Other Respiratory Problems/Disorders History: Denies: Hx Acute Renal Failure, Hx Benign Prostatic Hyperplasia, Hx Chronic Renal Failure, Hx Dialysis, Hx Kidney Infection, Hx Kidney Stones Musculoskeletal History: Reports: Hx Back Problems, Other Musculoskeletal History - broken ankles when a child, according to patient Denies: Hx Arthritis, Hx Bursitis, Hx Congenital Bone Abnormalities, Hx Fibromyalgia, Hx Gout, Hx Orthopedic Injury, Hx Osteoporosis, Hx Scoliosis, Hx Tendonitis Sensory History: Reports: Hx Contacts or Glasses - Pt. did not come to hospital w/ his glasses. Denies: Hx Cataracts, Hx Eye Injury, Hx Eye Prosthesis, Hx Glaucoma, Hx Legally Blind, Hx Macular Degeneration, Hx Vision Problem, Hx Deafness, Hx Hearing Aid, Hx Hearing Problem, Other Sensory Impairments Opthamlomology History: Reports: Hx Contacts or Glasses - Pt. did not come to hospital w/ his glasses. Denies: Hx Cataracts, Hx Eye Injury, Hx Eye Prosthesis, Hx Glaucoma, Hx Legally Blind, Hx Macular Degeneration, Hx Vision Problem, Other Sensory Impairments Neurological History: Denies: Hx Dementia, Hx Headaches, Hx Migraine, Hx Nerve Disease, Hx Seizures , Hx Spinal Cord Injury, Hx Transient Ischemic Attacks (TIA), Other Neuro Impairments/Disorders Psychiatric History: Reports: Hx Anxiety, Hx Depression, Hx Post Traumatic Stress Disorder, Hx Inpatient Treatment, Hx Community Mental Health Tx, Hx Schizophrenia, Hx Suicide Attempt, Hx of Violent Episodes Against Others, Hx Substance Abuse Denies: Hx Attention Deficit Hyperactivity Disorder, Hx Eating Disorder, Hx Panic Disorder, Hx Bipolar Disorder - Cancer History Hx Chemotherapy: No Hx Radiation Therapy: No Hx Palliative Cancer Treatment: No - Surgical History Surgery Procedure, Year, and Place: ankle surgery when a child Hx Anesthesia Reactions: No - Immunization History Immunizations Up to Date: Unable to Obtain/Confirm Infectious Disease History: No Infectious Disease History: Denies: Hx Clostridium Difficile, Hx Hepatitis, Hx Human Immunodeficiency Virus (HIV), Hx of Known/Suspected MRSA, Hx Shingles, Hx Tuberculosis, Hx Known/ Suspected VRE, Hx Known/Suspected VRSA, History Other Infectious Disease, Traveled Outside the [place] in Last 30 Days - Family History Known Family History: Positive: Cardiac Disease, Hypertension, Other - cancer mother - Social History Occupation: Employed Full-time Lives: With Family Alcohol Use: None Alcohol Amount: patient states he has not drank in 2 mths Hx Substance Use: Yes Substance Use Type: Reports: Marijuana Substance Use Comment - Amount & Last Used: "little bit of weed here and there. " Hx Tobacco Use: Yes Smoking Status (MU): Heavy Every Day Tobacco Smoker Type: Cigarettes Amount Used/How Often: 20 cigarettes per day Length of Time of Smoking/Using Tobacco: 16 years Have You Smoked in the Last Year: Yes Review of Systems Constitutional: Negative Negative: Fever, Chills Gastrointestinal: Negative Negative: Vomiting, Nausea Positive: Other - Painful lump to left axilla. All Other Systems Reviewed And Are Negative: Yes Physical Exam Triage Information Reviewed: Yes Vital Signs On Initial Exam: Initial Vitals Temp Pulse Resp BP Pulse Ox 98.7 F 82 18 137/79 97 11/11/17 09:03 11/11/17 09:03 11/11/17 09:03 11/11/17 09:03 11/11/17 09:03 Vital Signs Reviewed: Yes Appearance: Positive: Well-Appearing - Patient sitting in bed in no acute distress. Skin: Positive: Warm, Dry Head/Face: Positive: Normal Head/Face Inspection Eyes: Positive: Normal Neck: Positive: Supple Musculoskeletal: Positive: Other - Noted to the left axilla there is a large area of fluctuance roughly 8 cm. Area is very tender to palpation. No surrounding erythema. No active drainage. Neurological: Positive: Normal, CN Intact II-III Psychiatric: Positive: Affect/Mood Appropriate Procedures - Procedure Summary Procedure Summary: Incision and drainage: Consent and timeout paperwork completed. Left axilla was cleaned with Betadine. 2 cc of 1% lidocaine was used to anesthetize area. Incision was made and a copious amount of purulent matter was expressed. Wound culture obtained. Wound was packed with 1/4 inch packing. Sterile dressing placed. Patient tolerated well. Diagnostics - Vital Signs Vital Signs Temp Pulse Resp BP Pulse Ox 11/11/17 11:06 98.6 F 66 18 143/92 99 11/11/17 09:03 98.7 F 82 18 137/79 97 - Laboratory Lab Results: Lab Results 11/11/17 11/11/17 Range/Units 09:57 09:57 WBC 13.7 H (3.5-10.8) 10^3/ul RBC 4.86 (4.00-5.40) 10^6/ul Hgb 13.1 L (14.0-18.0) g/dl Hct 40 L (42-52) % MCV 82 (80-94) fL MCH 27 (27-31) pg MCHC 33 (31-36) g/dl RDW 15 (10.5-15) % Plt Count 246 (150-450) 10^3/ul MPV 8.4 (7.4-10.4) um3 Neut % (Auto) 72.2 (38-83) % Lymph % (Auto) 20.8 L (25-47) % [place] % (Auto) 6.2 (0-7) % Eos % (Auto) 0.4 (0-6) % Baso % (Auto) 0.4 (0-2) % Absolute Neuts (auto) 9.9 H (1.5-7.7) 10^3/ul Absolute Lymphs (auto) 2.8 (1.0-4.8) 10^3/ul Absolute Monos (auto) 0.8 (0-0.8) 10^3/ul Absolute Eos (auto) 0.1 (0-0.6) 10^3/ul Absolute Basos (auto) 0.1 (0-0.2) 10^3/ul Absolute Nucleated RBC 0 10^3/ul Nucleated RBC % 0.1 Sodium 137 (135-145) mmol/L Potassium 3.7 (3.5-5.0) mmol/L Chloride 104 (101-111) mmol/L Carbon Dioxide 28 (22-32) mmol/L Anion Gap 5 (2-11) mmol/L BUN 11 (6-24) mg/dL Creatinine 0.75 (0.67-1.17) mg/dL Est GFR ( Amer) 141.0 (>60) Est GFR (Non-Af Amer) 116.6 (>60) BUN/Creatinine Ratio 14.7 (8-20) Glucose 118 H (70-100) mg/dL Calcium 9.2 (8.6-10.3) mg/dL Result Diagrams: 11/11/17 09:57 11/11/17 09:57 Lab Statement: Any lab studies that have been ordered have been reviewed, and results considered in the medical decision making process. Course/Dx - Course Course Of Treatment: Patient presenting with a large abscess to left axilla. He is afebrile and well-appearing. Given history of diabetes to check basic labs. CBC shows a mild leukocytosis of 13.7. Glucose mildly elevated 118. Abscess was incised and drained as noticed above. Patient started on clindamycin first dose given in ER. Patient already has a scheduled apt. with his family doctor in 2 days. Packing removal and wound check in 2 days. Advised warm compresses. To return to the ER sooner for increased redness, swelling, pain, fever, vomiting. Patient understands and agrees with plan. Work excuse given. - Differential Diagnoses - Skin Complaint Differential Diagnoses: Abscess, Cellulitis - Diagnoses Provider Diagnoses: Abscess Discharge - Sign-Out/Discharge Documenting (check all that apply): Patient Departure - Discharge Plan Condition: Good Disposition: HOME Prescriptions: Clindamycin HCl 300 mg PO Q6H #40 capsule Naproxen [Naproxen 500 mg tab] 500 mg PO Q12H #20 tablet Patient Education Materials: Abscess (ED), Incision and Drainage (ED) Forms: *Work Release Referrals: Martín Ferreira MD [Primary Care Provider] - Additional Instructions: Follow up with your PCP on , 11/13/17, as scheduled Packing removal in 48 hours Take antibiotic as directed Apply warm compresses Return to ER for increased pain, swelling, fever, vomiting - Billing Disposition and Condition Condition: GOOD Disposition: Home
== END 2017-11-11 11:06 | disposition home or self-care (01) ==
LOC: ED 08:53
DX: L02.412 Cutaneous abscess of left axilla (principal); E11.9 Type 2 diabetes mellitus without complications; F17.210 Nicotine dependence, cigarettes, uncomplicated; Z79.84 Long term (current) use of oral hypoglycemic drugs
CPT/HCPCS: 10060; 36415; 80048; 85025; 87070; 87077; 87184; 87186; 87205; 87640; 87641; 99282; A9270-GY

== ENCOUNTER 2017-11-13 03:40 | Emergency (ER) | payer MEDICAID ==
--- OUTSIDE RECORDS SUMMARY | 2017-11-13 15:43 | XMS REPORT ---
:1980 External Reference #:[id number] Author Organization [facility] Address [address] [place] [address] [place] [address] Phone [phone] Care Team Providers Name Role Phone Martín Ferreira MD Primary Care Physician Unavailable Payers Type Date Identification Numbers Payment Provider Subscriber Medicaid Expires: Policy Number: [id number] Medicaid Earle Moncada 2016 Group Name: [id number] [address] PayID: [id number] [place] [address] Medigap Part B Policy Number: [id number] Medicaid Earle Moncada Group Name: 1 1 [address] PayID: [id number] [place] [address] Problems Date Description Provider Status Onset: 12/21/2015 Mild recurrent major depression Martín Ferreira M.D. Active Onset: 12/21/2015 Obstructive sleep apnea syndrome Martín Ferreira M.D. Active Onset: 01/15/2016 Disturbance in sleep behavior Liana Zhu MD Active Onset: 02/14/2016 Tobacco user Kathy Cruz DNP RN, Active [employer]BC Onset: 02/14/2016 Hypersomnia Kathy Cruz DNP, RN, Active [employer]-BC Onset: 03/05/2016 Obesity Martín Ferreira M.D. Active Onset: 08/05/2016 Essential hypertension Margarito Huertas, Scarlet Betancourt,FACP Onset: 12/10/2016 Type 2 diabetes mellitus Martín Ferreira M.D. Active Onset: 12/20/2016 Mixed hyperlipidemia Martín Ferreira M.D. Active Onset: 12/20/2016 Liver function tests abnormal Martín Ferreira M.D. Active Onset: 08/04/2017 Disorder of skin AND/OR Martín Ferreira M.D. Active subcutaneous tissue Onset: 08/19/2017 Anemia Martín Ferreira M.D. Active Onset: 12/21/2015 Chronic obstructive lung disease Martín Ferreira M.D. Resolved Resolved: 04/22/2017 Family History Date Family Member(s) Problem(s) Comments Father Hypertension Mother Sleep Apnea Mother due to Leukemia () Mother Diabetes Type II Onset: (01/15/2016) Mother Leukemia Mother Hypertension Siblings 4 First Sister Breast Cancer Social History Type Date Description Comments Marital Status Significant Other Lives With 08/05/2016 Female Partner Fiance Occupation Unemployed Cigarette Use currently smokes 1/2 Pack trying to cut down on Daily smoking. ETOH Use 08/05/2016 Denies alcohol use Smoking Patient is a current 1ppd X 21 years smoker, smokes every day Recreational Drug Use Denies Drug Use Daily Caffeine Pepsi daily Daily Caffeine Consumes on average 1 liter of soda per day Exercise Type/Frequency Does not exercise General Hx Text No kids Allergies, Adverse Reactions, Alerts Date Description Reaction Status Severity Comments 12/21/2015 NKDA active 03/25/2016 Milk-related Compounds active Medications Medication Date Status Form Strength Qnty SIG Indications Ordering Provider Tramadol HCL 11/12/ Active Tablets 50mg 30tabs three times L02.412 [place] 2018 a day as Jhon gar M.D. Atorvastatin 08/04/ Active Tablets 40mg 30tabs 1 by mouth E78.2 [facility] Calcium 2018 every day Serafin Ferreira Glipizide 04/22/ Active Tablets 5mg 30tabs take 1 E11.9 [facility] 2018 tablet Jhon carrasco M.D. breakdaily Accu-Check 12/11/ Active Device 1units use as [facility] Glucose Monitor 2017 directed Serafin Ferreira Accu-Check 12/11/ Active Strips 60unit check twice [facility] Compactstrips 2017 s daily Serafin Ferreira Accu-Check 12/11/ Active Misc 60unit twice daily Martín Luz Lancet 2017 s Jhon Beyer M.D. Seroquel 12/10/ Active Tablets 100mg 30tabs 1-2 at F33.0 [facility] 2016 [facility]time [facility] By Serafin TRINIDAD/Adjustable 09/17/ Active Misc 58" 1units use while M54.5 Martín /Aluminum/Round 2017 ambulating P[place]ikara Handle 8" , MDebbieD. Cpap 00/ Active Device Unknown 0000 Vitamin B-12 / Active Tablets 1000mcg 1 by mouth Unknown 0000 every day Atorvastatin 04/22/ Hx Tablets 20mg 30tabs take 1 E78.2 [facility] Calcium 2018 - tablet at [facility] 08/04/ bedtime , M.DDebbie 2017 Metformin HCL 12/20/ Hx Tablets 500mg 60tabs 1 by mouth E11.9 [facility] 2017 - [facility] 08[facility]/ , MSusan 2017 Losartan 12/20/ Hx Tablets 25mg 30tabs 1 by mouth E11.9 Martín Potassium 2017 - once a day [facility] 08/04/ , M.Jeffery 2017 Onetouch Ultra 12/10/ Hx Kit w/Device 1units check blood E11.9 Martín 2 2017 - sugar 2 [facility] 12/11/ times daily , M.D. 2017 Onetouch 12/10/ Hx Misc 60unit test blood E11.9 Martín Ultrasoft 2017 - s 2 times a [facility] Lancets 12/11/ day or as , Serafin 2017 needed Onetouch Ultra 12/10/ Hx Strips 60unit test twice E11.9 [facility] Blue 2017 - s a day [facility] 12/11/ , M.DDebbie 2017 Anoro Ellipta 08/05/ Hx Aerosol 62.5-25mcg 60unit 1 Margarito 2017 - /Inh s inhalation Jeffery Huertas, 12/10/ qd in PM M.Jeffery,FACP 2017 Lisinopril-Hydr 05/15/ Hx Tablets 10-12.5mg 30tabs 1 by mouth José Miguel Uriostegui ochlorothiazide 2017 - every day Jeffery Huertas, 12/10/ Serafin,FACP 2017 Losartan 05/10/ Hx Tablets 50-12.5mg 30tabs take one to I10 [facility] Potassium/Hope 2017 - one & Pachikara chlorothiazide 05/15/ one-half , Serafin 2017 tablets by mouth once daily Ibuprofen 03/17/ Hx Tablets 600mg 90tabs three times M54.5 Martín 2017 - a day Pachikara 12/10/ , Serafin 2017 Proair HFA 12/20/ Hx Aerosol 108(90Base 25.5gm 2 puffs ih J44.9 Martín 2015 - ) mcg/Act every 4 Pachikara 12/10/ hours Serafin cleary 2017 needed Prozac / Hx Capsules 40mg 1 by mouth Unknown 0000 - every day 2017 Risperdal / Hx Tablets 2mg 1 by mouth Unknown 0000 - every night 05/21/ for 2017 psychosis/m ood Olanzapine / Hx Tablets 10mg 30tabs 1.5 tab po Unknown 0000 - qd 2016 Sertraline HCL / Hx Tablets 100mg 1 by mouth Unknown 0000 - every day 2016 Medications Administered in Office Medication Date Status Form Strength Qnty SIG Indications Ordering Provider PPD Administered Injection Nurse Visit 017 [place] Technetium TC Administered Injection Victor M S. 99M 017 DO Cody Tetrofosmin, FACC Per Unit Dose Up To 40 Millicuries Immunizations CPT Code Status Date Vaccine Lot # [id number] Given 03/05/2016 Pneumonia Vaccine [id number] Vital Signs Date Vital Result Comment 11/12/2017 Height 70 inches 5'10" Weight 249.00 lb Heart Rate 75 /min BP Systolic Sitting 127 mmHg BP Diastolic Sitting 86 mmHg O2 % BldC Oximetry 96 % BMI (Body Mass Index) 35.7 kg/m2 09/09/2017 Height 70 inches 5'10" Weight 251.25 lb Heart Rate 70 /min BP Systolic Sitting 130 mmHg BP Diastolic Sitting 88 mmHg Body Temperature 97.7 F O2 % BldC Oximetry 97 % BMI (Body Mass Index) 36.0 kg/m2 08/19/2017 Height 70 inches 5'10" Weight 146.00 lb Heart Rate 73 /min BP Systolic 130 mmHg BP Diastolic 90 mmHg O2 % BldC Oximetry 97 % BMI (Body Mass Index) 20.9 kg/m2 08/04/2017 Height 70 inches 5'10" Weight 241.00 lb Heart Rate 83 /min BP Systolic 130 mmHg BP Diastolic 90 mmHg O2 % BldC Oximetry 98 % BMI (Body Mass Index) 34.6 kg/m2 06/03/2017 Weight 255.00 lb Heart Rate 82 /min BP Systolic 124 mmHg BP Diastolic 80 mmHg O2 % BldC Oximetry 96 % 04/22/2017 Weight 252.00 lb Heart Rate 85 /min BP Systolic Sitting 130 mmHg BP Diastolic Sitting 80 mmHg Body Temperature 97.8 F O2 % BldC Oximetry 97 % 12/20/2016 Height 70 inches 5'10" Weight 253.12 lb Heart Rate 68 /min BP Systolic 138 mmHg BP Diastolic 86 mmHg Body Temperature 97.9 F O2 % BldC Oximetry 99 % BMI (Body Mass Index) 36.3 kg/m2 12/10/2016 Weight 256.00 lb Heart Rate 81 /min BP Systolic Sitting 132 mmHg BP Diastolic Sitting 90 mmHg Body Temperature 97.9 F O2 % BldC Oximetry 98 % 08/07/2016 Height 69 inches 5'9" Weight 248.00 lb Heart Rate 84 /min BP Systolic 120 mmHg BP Diastolic 74 mmHg Respiratory Rate 18 /min BMI (Body Mass Index) 36.6 kg/m2 08/05/2016 Weight 252.38 lb Heart Rate 94 /min BP Systolic Sitting 128 mmHg BP Diastolic Sitting 90 mmHg BP Systolic Recheck 115 mmHg BP Diastolic Recheck 70 mmHg Body Temperature 98.6 F O2 % BldC Oximetry 98 % 06/07/2016 Height 69 inches 5'9" Weight 234.25 lb Heart Rate 98 /min BP Systolic Sitting 124 mmHg BP Diastolic Sitting 92 mmHg Body Temperature 98.8 F O2 % BldC Oximetry 98 % BMI (Body Mass Index) 34.6 kg/m2 06/07/2016 Height 69 inches 5'9" Heart Rate 81 /min BP Systolic Sitting 144 mmHg BP Diastolic Sitting 82 mmHg Respiratory Rate 16 /min O2 % BldC Oximetry 98 % 05/22/2016 Height 69 inches 5'9" Weight 288.00 lb with shoes Heart Rate 74 /min BP Systolic Sitting 138 mmHg LUElarge cuff BP Diastolic Sitting 78 mmHg LUElarge cuff BP Systolic Standing 126 mmHg Lue large cuff BP Diastolic Standing 80 mmHg Lue large cuff Respiratory Rate 18 /min BMI (Body Mass Index) 42.5 kg/m2 Ejection Fraction 60-65% echo 04/01/16 05/10/2016 Heart Rate 110 /min BP Systolic Sitting 150 mmHg BP Diastolic Sitting 100 mmHg Body Temperature 97.9 F O2 % BldC Oximetry 98 % 03/25/2016 Height 69 inches 5'9" Weight 229.00 lb w/o shoes Heart Rate 74 /min reg BP Systolic 134 mmHg Lue, reg cuff BP Diastolic 90 mmHg Lue, reg cuff BP Systolic Sitting 146 mmHg Rue, reg cuff BP Diastolic Sitting 100 mmHg Rue, reg cuff BP Systolic Standing 140 mmHg Rue BP Diastolic Standing 100 mmHg Rue Respiratory Rate 16 /min BMI (Body Mass Index) 33.8 kg/m2 03/05/2016 Height 68 inches 5'8" Weight 230.00 lb Heart Rate 82 /min BP Systolic Sitting 132 mmHg BP Diastolic Sitting 92 mmHg Body Temperature 97.8 F O2 % BldC Oximetry 98 % BMI (Body Mass Index) 35.0 kg/m2 02/14/2016 Height 68 inches 5'8" Weight 224.00 lb Heart Rate 75 /min BP Systolic Sitting 144 mmHg BP Diastolic Sitting 80 mmHg Respiratory Rate 18 /min O2 % BldC Oximetry 97 % BMI (Body Mass Index) 34.1 kg/m2 01/15/2016 Height 68.5 inches 5'8.50" Weight 221.00 lb Heart Rate 88 /min BP Systolic Sitting 140 mmHg BP Diastolic Sitting 84 mmHg O2 % BldC Oximetry 98 % BMI (Body Mass Index) 33.1 kg/m2 Neck Circumference in inches 16.5 12/21/2015 Height 68.5 inches 5'8.50" Weight 221.25 lb Heart Rate 80 /min BP Systolic Sitting 132 mmHg BP Diastolic Sitting 86 mmHg Body Temperature 97.9 F O2 % BldC Oximetry 98 % BMI (Body Mass Index) 33.1 kg/m2 Results Test Date Test Result H/L Range Note Laboratory test 11/12/2017 Hemoglobin A1c 6.3 5-7 finding Wound Culture/Sensi 11/11/2017 Wound/Misc SEE RESULT 1 Culture-Gram Stain BELOW Laboratory test 11/11/2017 MRSA/S. aureus Ssti SEE RESULT 2 finding PCR BELOW CBC Auto Diff 11/11/2017 White Blood Count 13.7 10^3/uL High 3.5-10.8 Red Blood Count 4.86 10^6/uL 4.00-5.40 Hemoglobin 13.1 g/dL Low 14.0-18.0 Hematocrit 40 % Low 42-52 Mean Corpuscular Volume 82 fL 80-94 Mean Corpuscular Hemoglobin 27 pg 27-31 Mean Corpuscular HGB Conc 33 g/dL 31-36 Red Cell Distribution Width 15 % 10.5-15 Platelet Count 246 10^3/uL 150-450 Mean Platelet Volume 8.4 um3 7.4-10.4 Abs Neutrophils 9.9 10^3/uL High 1.5-7.7 Abs Lymphocytes 2.8 10^3/uL 1.0-4.8 Abs Monocytes 0.8 10^3/uL 0-0.8 Abs Eosinophils 0.1 10^3/uL 0-0.6 Abs Basophils 0.1 10^3/uL 0-0.2 Abs Nucleated RBC 0 10^3/uL Granulocyte % 72.2 % 38-83 Lymphocyte % 20.8 % Low 25-47 Monocyte % 6.2 % 0-7 Eosinophil % 0.4 % 0-6 Basophil % 0.4 % 0-2 Nucleated Red Blood Cells % 0.1 Basic Metabolic Panel 11/11/2017 Sodium 137 mmol/L 135-145 Potassium 3.7 mmol/L 3.5-5.0 Chloride 104 mmol/L 101-111 Co2 Carbon Dioxide 28 mmol/L 22-32 Anion Gap 5 mmol/L 2-11 Glucose 118 mg/dL High 70-100 Blood Urea Nitrogen 11 mg/dL 6-24 Creatinine 0.75 mg/dL 0.67-1.17 BUN/Creatinine Ratio 14.7 8-20 Calcium 9.2 mg/dL 8.6-10.3 Egfr Non- 116.6 >60 Egfr 141.0 >60 3 CBC Auto Diff 10/28/2017 White Blood Count 8.8 10^3/uL 3.5-10.8 Red Blood Count 4.67 10^6/uL 4.00-5.40 Hemoglobin 12.5 g/dL Low 14.0-18.0 Hematocrit 38 % Low 42-52 Mean Corpuscular Volume 82 fL 80-94 Mean Corpuscular Hemoglobin 27 pg 27-31 Mean Corpuscular HGB Conc 33 g/dL 31-36 Red Cell Distribution Width 15 % 10.5-15 Platelet Count 239 10^3/uL 150-450 Mean Platelet Volume 8.4 um3 7.4-10.4 Abs Neutrophils 4.3 10^3/uL 1.5-7.7 Abs Lymphocytes 3.7 10^3/uL 1.0-4.8 Abs Monocytes 0.7 10^3/uL 0-0.8 Abs Eosinophils 0.1 10^3/uL 0-0.6 Abs Basophils 0.1 10^3/uL 0-0.2 Abs Nucleated RBC 0 10^3/uL Granulocyte % 48.7 % 38-83 Lymphocyte % 42.0 % 25-47 Monocyte % 7.7 % High 0-7 Eosinophil % 1.0 % 0-6 Basophil % 0.6 % 0-2 Nucleated Red Blood Cells % 0.2 Laboratory test finding 10/28/2017 Ferritin 87.4 ng/mL 24-336 Protein Electrophoresis 10/28/2017 Total Protein(Pep) 7.4 g/dL 6.3 - 7.9 Albumin 3.4 g/dL 3.4-4.7 Alpha-1 Globulin 0.3 g/dL 0.1-0.3 Alpha-2 Globulin 0.8 g/dL 0.6-1.0 Beta Globulin 1.0 g/dL 0.7-1.2 Gamma Globulin 2.0 g/dL 0.6-1.6 Albumin/Globulin Ratio 0.85 Impression See Comment 4 Hemoglobin Electropheresis 08/19/2017 Hemoglobin A2 2.7 % 2.0-3.3 Hemoglobin F 0.0 % 0.0-0.9 5 Hemoglobin A 97.3 % 95.8-98.0 Variant Hemoglobin 0.0 % 6 Hemoglobin Electro Interp See Comment 7 Vitamin B12 And Folate Serum 08/19/2017 Vitamin B12 308 pg/mL 180-914 8 Folic Acid (Folate) 10.60 ng/mL >3.99 Iron & Iron Binding Capacity 08/19/2017 Iron 78 g/dL 50-212 Unsaturated Iron Binding 248 g/dL Total Iron Binding Capacity 326 g/dL 250-450 Transferrin 233 mg/dL 203-362 % Iron Saturation 24 % 15-55 Laboratory test finding 08/19/2017 Haptoglobin 211 mg/dL 30 - 200 9 CBC Auto Diff 08/19/2017 White Blood Count 11.8 10^3/uL High 3.5-10.8 Red Blood Count 4.70 10^6/uL 4.00-5.40 Hemoglobin 12.7 g/dL Low 14.0-18.0 Hematocrit 39 % Low 42-52 Mean Corpuscular Volume 82 fL 80-94 Mean Corpuscular Hemoglobin 27 pg 27-31 Mean Corpuscular HGB Conc 33 g/dL 31-36 Red Cell Distribution Width 14 % 10.5-15 Platelet Count 269 10^3/uL 150-450 Mean Platelet Volume 8.4 um3 7.4-10.4 Abs Neutrophils 5.8 10^3/uL 1.5-7.7 Abs Lymphocytes 4.9 10^3/uL High 1.0-4.8 Abs Monocytes 0.9 10^3/uL High 0-0.8 Abs Eosinophils 0.2 10^3/uL 0-0.6 Abs Basophils 0 10^3/uL 0-0.2 Abs Nucleated RBC 0 10^3/uL Granulocyte % 48.8 % 38-83 Lymphocyte % 41.5 % 25-47 Monocyte % 7.8 % High 0-7 Eosinophil % 1.5 % 0-6 Basophil % 0.4 % 0-2 Nucleated Red Blood Cells % 0 Lipid Profile (Trig/Chol/HDL) 08/04/2017 Triglycerides 117 mg/dL 10 Cholesterol 196 mg/dL 11 HDL Cholesterol 39.1 mg/dL 12 LDL Cholesterol 134 mg/dL 13 Laboratory test finding 04/22/2017 Hemoglobin A1c 6.5 5-7 Hepatitis B Lisette AB 12/31/2016 Hepatitis B Surface AB Nonreactive Nonreactive Titer Hep B Surf AB Level < 3.10 mIU/mL <12 14 Laboratory test finding 12/31/2016 Hepatitis C Antibody Nonreactive Nonreactive Comp Metabolic Panel 12/31/2016 Sodium 135 mmol/L 133-145 Potassium 4.4 mmol/L 3.5-5.0 Chloride 102 mmol/L 101-111 Co2 Carbon Dioxide 28 mmol/L 22-32 Anion Gap 5 mmol/L 2-11 Glucose 113 mg/dL High 70-100 Blood Urea Nitrogen 11 mg/dL 6-24 Creatinine 0.83 mg/dL 0.67-1.17 BUN/Creatinine Ratio 13.3 8-20 Calcium 10.0 mg/dL 8.6-10.3 Total Protein 7.8 g/dL 6.4-8.9 Albumin 4.2 g/dL 3.2-5.2 Globulin 3.6 g/dL 2-4 Albumin/Globulin Ratio 1.2 1-3 Total Bilirubin 0.50 mg/dL 0.2-1.0 Alkaline Phosphatase 84 U/L 34-104 Alt 32 U/L 7-52 Ast 21 U/L 13-39 Egfr Non- 104.3 >60 Egfr 134.1 >60 15 Order 12/19/2016 Nebulizer Treatment <pending> Laboratory test finding 12/13/2016 TSH (Thyroid Stim Horm) 1.83 mcIU/mL 0.34-5.60 16 Urine Microalbumin 12/13/2016 Ur Microalbumin (mg/L) < 15.0 mg/L Random Urine Creatinine 248.70 mg/dL Urine Microalbumin/Creatinine TNP ug/mg <31 17 Comp Metabolic Panel 12/13/2016 Sodium 136 mmol/L 133-145 Potassium 4.4 mmol/L 3.5-5.0 Chloride 101 mmol/L 101-111 Co2 Carbon Dioxide 29 mmol/L 22-32 Anion Gap 6 mmol/L 2-11 Glucose 105 mg/dL High 70-100 Blood Urea Nitrogen 12 mg/dL 6-24 Creatinine 0.78 mg/dL 0.67-1.17 BUN/Creatinine Ratio 15.4 8-20 Calcium 10.0 mg/dL 8.6-10.3 Total Protein 7.8 g/dL 6.4-8.9 Albumin 4.3 g/dL 3.2-5.2 Globulin 3.5 g/dL 2-4 Albumin/Globulin Ratio 1.2 1-3 Total Bilirubin 0.40 mg/dL 0.2-1.0 Alkaline Phosphatase 100 U/L 34-104 Alt 71 U/L High 7-52 Ast 43 U/L High 13-39 Egfr Non- 112.0 >60 Egfr 144.0 >60 18 Lipid Profile (Trig/Chol/HDL) 12/13/2016 Triglycerides 202 mg/dL 19 Cholesterol 186 mg/dL 20 HDL Cholesterol 38.1 mg/dL 21 LDL Cholesterol 108 mg/dL 22 Laboratory test finding 12/10/2016 Hemoglobin A1c 7.1 High 5-7 CBC Auto Diff 07/12/2016 White Blood Count 10.0 10^3/uL 3.5-10.8 Red Blood Count 5.00 10^6/uL 4.0-5.4 Hemoglobin 13.4 g/dL Low 14.0-18.0 Hematocrit 41 % Low 42-52 Mean Corpuscular Volume 83 fL 80-94 Mean Corpuscular Hemoglobin 27 pg 27-31 Mean Corpuscular HGB Conc 33 g/dL 31-36 Red Cell Distribution Width 15 % 10.5-15 Platelet Count 237 10^3/uL 150-450 Mean Platelet Volume 9 um3 7.4-10.4 Abs Neutrophils 4.5 10^3/uL 1.5-7.7 Abs Lymphocytes 4.5 10^3/uL 1.0-4.8 Abs Monocytes 0.8 10^3/uL 0-0.8 Abs Eosinophils 0.1 10^3/uL 0-0.6 Abs Basophils 0.1 10^3/uL 0-0.2 Abs Nucleated RBC 0.02 10^3/uL Granulocyte % 45.1 % 38-83 Lymphocyte % 45.1 % 25-47 Monocyte % 7.7 % 1-9 Eosinophil % 1.4 % 0-6 Basophil % 0.7 % 0-2 Nucleated Red Blood Cells % 0.2 Comp Metabolic Panel 07/12/2016 Sodium 135 mmol/L 133-145 Potassium 3.9 mmol/L 3.5-5.0 Chloride 102 mmol/L 101-111 Co2 Carbon Dioxide 28 mmol/L 22-32 Anion Gap 5 mmol/L 2-11 Glucose 84 mg/dL 70-100 Blood Urea Nitrogen 8 mg/dL 6-24 Creatinine 0.81 mg/dL 0.67-1.17 BUN/Creatinine Ratio 9.9 8-20 Calcium 9.7 mg/dL 8.6-10.3 Total Protein 8.1 g/dL 6.4-8.9 Albumin 4.3 g/dL 3.2-5.2 Globulin 3.8 g/dL 2-4 Albumin/Globulin Ratio 1.1 1-3 Total Bilirubin 0.40 mg/dL 0.2-1.0 Alkaline Phosphatase 79 U/L 34-104 Alt 43 U/L 7-52 Ast 33 U/L 13-39 Egfr Non- 107.2 >60 Egfr 137.9 >60 23 Laboratory test finding 07/12/2016 Acetaminophen < 15 g/mL 24 Alcohol < 10 mg/dL <10 Salicylate < 2.50 mg/dL <30 TSH (Thyroid Stim Horm) 1.61 mcIU/mL 0.34-5.60 Connective Tissue Panel 05/14/2016 Anti-Nuclear Antibody 0.4 U 25 Cyclic Citrullinated Peptide <15.6 U 26 Interpretation See Comment 27 Laboratory test finding 05/14/2016 Erythrocyte Sed Rate 22 mm/Hr High 0- 14 Lipid Profile (Trig/Chol/HDL) 01/30/2016 Triglycerides 103 mg/dL 28 Cholesterol 170 mg/dL 29 HDL Cholesterol 39.1 mg/dL 30 LDL Cholesterol 110 mg/dL 31 Laboratory test finding 01/30/2016 TSH (Thyroid Stim Horm) 2.93 mcIU/mL 0.34-5.60 Comp Metabolic Panel 01/30/2016 Sodium 135 mmol/L 133-145 Potassium 4.0 mmol/L 3.5-5.0 Chloride 101 mmol/L 101-111 Co2 Carbon Dioxide 28 mmol/L 22-32 Anion Gap 6 mmol/L 2-11 Glucose 89 mg/dL 70-100 Blood Urea Nitrogen 9 mg/dL 6-24 Creatinine 0.83 mg/dL 0.67-1.17 BUN/Creatinine Ratio 10.8 8-20 Calcium 9.9 mg/dL 8.6-10.3 Total Protein 7.7 g/dL 6.4-8.9 Albumin 4.3 g/dL 3.2-5.2 Globulin 3.4 g/dL 2-4 Albumin/Globulin Ratio 1.3 1-3 Total Bilirubin 0.30 mg/dL 0.2-1.0 Alkaline Phosphatase 78 U/L 34-104 Alt 27 U/L 7-52 Ast 23 U/L 13-39 Egfr Non- 104.8 >60 Egfr 134.8 >60 32 1 SEE RESULT BELOW Name: EARLE MONCADA : [address]: Emmett Barnett MD Acct: [id number] Unit: [id number] AGE: 37 Location: ED Re11/11/17 SEX: M Status: DEP ER SPEC: [id number] ORTIZ: 11/11/17-10[address] [facility] [address]: Fran ORTEGA REQ: [id number] RECD: 11/11/17 STATUS: RES HR DR: Martín Barnett MD _ SOURCE: HEVER GONZALES [facility]: ORDERED: MRSA/SA SSTI, Culture Stain Procedure Result Reported Site MRSA/S. aureus SSTI PCR PENDING Wound/Misc Gram Stain Final 11/11/17- 1134 ML 4+ Neutrophils 1+ Epithelial Cells 3+ Gram Positive Cocci 1+ Gram Negative Bacilli 1+ Gram Positive Bacilli Wound/Misc Culture PENDING * ML - Main Lab . END OF REPORT DEPARTMENT OF PATHOLOGY, [address] [place] [address] Codey Arizmendi M.D. Director KENIA # [id number] 2 SEE RESULT BELOW Name: CORALEARLE Jesus Alberto : [address]: Emmett Barnett MD Acct: [id number] Unit: [id number] AGE: 37 Location: ED Re11/11/17 SEX: M Status: DEP ER SPEC: [id number] ORTIZ: 11/11/17-[address]: Fran ORTEGA REQ: [id number] RECD: 11/11/17 STATUS: SERGIO PHAM DR: Martín Barnett MD _ SOURCE: HEVER GONZALES [facility]: ORDERED: MRSA/SA SSTI, Culture Stain Procedure Result Reported Site MRSA/S. aureus SSTI PCR Final 11/11/17- 1253 ML Organism 1 MRSA NEGATIVE Organism 2 S.AUREUS NEGATIVE Wound/Misc Gram Stain Final 11/11/17- 1134 ML 4+ Neutrophils 1+ Epithelial Cells 3+ Gram Positive Cocci 1+ Gram Negative Bacilli 1+ Gram Positive Bacilli Wound/Misc Culture PENDING * ML - Main Lab . END OF REPORT DEPARTMENT OF PATHOLOGY, [address] [place] [address] Codey Arizmendi M.D. Director [facility] # [id number] 3 Because ethnic data is not always readily available, this report includes an eGFR for both -Americans and non- Americans. The National Kidney Disease Education Program (NKDEP) does not endorse the use of the MDRD equation for patients that are not between the ages of 18 and 70, are , have extremes of body size, muscle mass, or nutritional status, or are non- or non-. According to the National Kidney Foundation, irrespective of diagnosis, the stage of the disease is based on the level of kidney function: Stage Description GFR(mL/min/1.73 m(2)) 1 Kidney damage with normal or decreased GFR 90 2 Kidney damage with mild decrease in GFR 60-89 3 Moderate decrease in GFR 30-59 4 Severe decrease in GFR 15-29 5 Kidney failure <15 (or dialysis) 4 RESULT: Polyclonal hypergammaglobulinemia Test Performed by: [facility] - [address] [address] 5 ADDITIONAL INFORMATION This test has been modified from the behavioral pediatrician's instructions. Its performance characteristics were determined by [facility] in a manner consistent with CLIA requirements. This test has not been cleared or approved by the U.S. Food and Drug Administration. 6 REFERENCE VALUE No abnormal variants ADDITIONAL INFORMATION This test has been modified from the behavioral pediatrician's instructions. Its performance characteristics were determined by [facility] in a manner consistent with CLIA requirements. This test has not been cleared or approved by the U.S. Food and Drug Administration. 7 No electrophoretic evidence of abnormal hemoglobin or beta thalassemia. See comment. Comment: These results do not exclude alpha thalassemia. The vast majority of hemoglobin variants and beta thalassemias are excluded, although some rare clinically significant hemoglobin disorders are electrophoretically silent. If otherwise unexplained lifelong/familial symptoms such as hemolysis (i.e. Harish body hemolytic anemia), microcytosis, erythrocytosis, cyanosis, or hypoxia are present and additional testing is desired, please call the Metabolic Hematology Laboratory ( ). If alpha thalassemia is a consideration, alpha globin gene deletion/duplication analysis is available (ATHAL/Alpha-Globin Gene Analysis). Additional sample required. Test Performed by: [address] [address] 8 Normal Range 180 to 914 Indeterminate Range 145 to 180 Deficient Range <145 9 Test Performed by: [address] [address] 10 Desirable: <150 Borderline High: 150-199 High: 200-499 Very High: >500 11 Desirable: <200 Borderline High: 200-239 High: >239 12 Low: <40 Desirable: 40-60 High: >60 13 Desirable: <100 Near Optimal: 100-129 Borderline High: 130-159 High: 160-189 Very High: >189 14 This assay does not differentiate between reactivity due to a vaccine-induced immune response or an immune response induced by infection with HBV. 15 Because ethnic data is not always readily available, this report includes an eGFR for both -Americans and non- Americans. The National Kidney Disease Education Program (NKDEP) does not endorse the use of the MDRD equation for patients that are not between the ages of 18 and 70, are , have extremes of body size, muscle mass, or nutritional status, or are non- or non-. According to the National Kidney Foundation, irrespective of diagnosis, the stage of the disease is based on the level of kidney function: Stage Description GFR(mL/min/1.73 m(2)) 1 Kidney damage with normal or decreased GFR 90 2 Kidney damage with mild decrease in GFR 60-89 3 Moderate decrease in GFR 30-59 4 Severe decrease in GFR 15-29 5 Kidney failure <15 (or dialysis) 16 FASTING 10 HOUR 17 Unable to calculate due to low microalbumin 18 Because ethnic data is not always readily available, this report includes an eGFR for both -Americans and non- Americans. The National Kidney Disease Education Program (NKDEP) does not endorse the use of the MDRD equation for patients that are not between the ages of 18 and 70, are , have extremes of body size, muscle mass, or nutritional status, or are non- or non-. According to the National Kidney Foundation, irrespective of diagnosis, the stage of the disease is based on the level of kidney function: Stage Description GFR(mL/min/1.73 m(2)) 1 Kidney damage with normal or decreased GFR 90 2 Kidney damage with mild decrease in GFR 60-89 3 Moderate decrease in GFR 30-59 4 Severe decrease in GFR 15-29 5 Kidney failure <15 (or dialysis) 19 Desirable: <150 Borderline High: 150-199 High: 200-499 Very High: >500 20 Desirable: <200 Borderline High: 200-239 High: >239 21 Low: <40 Desirable: 40-60 High: >60 22 Desirable: <100 Near Optimal: 100-129 Borderline High: 130-159 High: 160-189 Very High: >189 23 Because ethnic data is not always readily available, this report includes an eGFR for both -Americans and non- Americans. The National Kidney Disease Education Program (NKDEP) does not endorse the use of the MDRD equation for patients that are not between the ages of 18 and 70, are , have extremes of body size, muscle mass, or nutritional status, or are non- or non-. According to the National Kidney Foundation, irrespective of diagnosis, the stage of the disease is based on the level of kidney function: Stage Description GFR(mL/min/1.73 m(2)) 1 Kidney damage with normal or decreased GFR 90 2 Kidney damage with mild decrease in GFR 60-89 3 Moderate decrease in GFR 30-59 4 Severe decrease in GFR 15-29 5 Kidney failure <15 (or dialysis) 24 Therapeutic concentration: <50 ug/mL Toxic concentration: >120 ug/mL 25 REFERENCE VALUE <=1.0 (Negative) 26 REFERENCE VALUE <20.0 (Negative) 27 Tests for antibodies to dsDNA and AB antigens are not performed automatically unless the GILBERTO result is > or= 3.0 U. Studies performed at [facility] indicate that positive GILBERTO results <3.0 U are rarely accompanied by positive second order tests. Test Performed by: [facility] - [address] [address] 28 Desirable <150 Borderline high 150-199 High 200-499 Very High >500 29 Desirable <200 Borderline high 200-239 High >239 30 Low <40 Desirable: 40-60 High: >60 31 Desirable: <100 mg/dL Near Optimal: 100-129 mg/dL Borderline High: 130-159 mg/dL High: 160-189 mg/dL Very High: >189 mg/dL 32 Because ethnic data is not always readily available, this report includes an eGFR for both -Americans and non- Americans. The National Kidney Disease Education Program (NKDEP) does not endorse the use of the MDRD equation for patients that are not between the ages of 18 and 70, are , have extremes of body size, muscle mass, or nutritional status, or are non- or non-. According to the National Kidney Foundation, irrespective of diagnosis, the stage of the disease is based on the level of kidney function: Stage Description GFR(mL/min/1.73 m(2)) 1 Kidney damage with normal or decreased GFR 90 2 Kidney damage with mild decrease in GFR 60-89 3 Moderate decrease in GFR 30-59 4 Severe decrease in GFR 15-29 5 Kidney failure <15 (or dialysis) Procedures Date CPT Code Description Status Comment 07/25/2016 Diabetic Retinal Eye Exam Completed normal Document: 06/03/17 - .Exam SHT 05/15/2016 46047 Stress Test Completed 05/15/2016 22247 Myocardial Perfusion Imaging Completed Tomographic (Spect) Multiple Studies 04/01/2016 31112 ECHO Transthoracic, Real-Time 2D Completed With Doppler And Color Flow 03/25/2016 86665 EKG Tracing & Interpretation Completed 03/05/2016 43519 EKG Tracing & Interpretation Completed 02/03/2016 34613 Polysomnography Sleep Staging 4+ Completed Parameters W/Cpap 01/30/2016 76993 Plethysmography Determination Completed Lung Volumes & Per Airway Resist 01/30/2016 70499 Pulmonary Function><Bronchodil Completed Encounters Type Date Location Provider CPT E/M Dx Office Visit 09/10/2017 2:30p [facility] [place] [address] L73.2 L70.0 Office Visit 09/09/2017 11:00a Mili Ferreira M.D. 89167 D64.9 Medicine - [address] Office Visit 08/19/2017 3:00p Mili Ferreira M.D. 65069 D64.9 Medicine - [address] Office Visit 08/04/2017 11:00a Mili Ferreira M.D. 19839 E11.9 Medicine - [address] E78.2 L98.9 E66.9 Office Visit 06/03/2017 11:00a Mili Ferreira M.D. 14058 E11.9 Medicine - [address] E66.9 Z00.01 Z00.00 Office Visit 04/22/2017 11:20a Brandon Hallman.D. 15201 E11.9 Medicine - [address] E78.2 E66.9 F17.210 Office Visit 12/20/2016 3:40p [facility] Internal Martín Ferreira M.D. 62772 E11.9 Medicine - [address] E78.2 R94.5 Office Visit 12/10/2016 4:20p [facility] Internal Martín Ferreira, 38941 M79.602 Medicine - [address] M.D. F33.0 E11.9 E66.9 Office Visit 08/07/2016 11:30a Pul[facility]ology [facility] Sleep Kathy Cruz, 31224 G47.33 Services Of [facility] LUISA RN, [facility] G47.14 F17.210 Office Visit 08/05/2016 11:50a [facility] Internal Medicine Margarito Huertas, [address] I10 - [address] M.Jeffery,FACP F33.2 Z72.0 R06.00 H26.032 F17.210 Office Visit 06/07/2016 10:45a Pul[facility]ology [facility] Sleep Kathy Cruz, 07946 G47.33 Services Of [facility] PINEDA MORAN, [facility] G47.14 F17.210 Office Visit 06/07/2016 2:40p [facility] Internal Medicine Martín Ferreira, 23624 M54.5 - [address] M.D. Office Visit 05/22/2016 2:40p [facility] [place] [address] Z72.0 [facility] FACC I10 I11.9 Office Visit 05/10/2016 2:20p [facility] Internal Martín Ferreira, 05845 F17.210 Medicine - [address] M.D. J44.9 I10 M54.5 M79.602 R07.9 Office Visit 03/25/2016 1:00p [facility] [place] [address] R94.31 [employer] FACC Z72.0 R07.9 R06.02 Office Visit 03/05/2016 10:00a [facility] Casandra Ferreira M.D. 37751 F33.0 Medicine - [address] F17.210 J44.9 E66.9 R07.9 Z23 Office Visit 02/14/2016 11:15a Pulmonology And Sleep Kathy Cruz, 38497 G47.33 Services Of [facility] DNP, RN, [employer]- G47.14 Office Visit 01/15/2016 11:30a [facility] [address] G47.9 Services Of [facility] Office Visit 12/21/2015 3:20p [facility] Internal Medicine - Martín Ferreira, 94834 F33.0 [address] Jacinto Betancourt F17.210 J44.9 Z13.1 Z13.220 G47.30 Z00.00 Office Visit 11/11/2011 8:16a [facility], Dali Chowdhury, 82484 789.03 Hospitalists D.O. [phone] Office Visit 11/10/2011 8:13a [facility], Dali Chowdhury, 69628 789.03 Hospitalists D.O. [phone] Plan of Care Future Appointment(s):11/13/2017 11:00 am - Nurse Visit A at [facility] Internal Medicine - [address]/20/2018 9:40 am - Martín Ferreira M.D. at [facility] Internal Medicine - [address]/12/2017 - Martín Ferreira M.D.E11.9 Type 2 diabetes mellitus without complicationsComments:You are meeting goal for blood sugar control.Follow up:Nurse visit to take out drain tomorrow 3 months, 20 minGoals:Goal Hemoglobin A1c is less than 7.0%. Goal Blood pressure is less than 140/90. Goal LDL (bad cholesterol) is less than 70.L02.412 Cutaneous abscess of left axillaNew Medication:Tramadol HCL 50 mg
--- NOTE | 2017-11-13 16:16 | UC ---
Skin Complaint HPI - HPI Summary HPI Summary: 37 yo male presents with abscess to LEFT axilla. He tells me he was in the ER 2 days ago and had this drained and was placed on antibiotics. The abscess was packed and he was told to return in 2 days for a packing removal and wound check. Pt has changed the dressing daily. Denies fever, chills. - History of Current Complaint Time Seen by Provider: 11/13/17 16:13 Hx Obtained From: Patient Onset Severity: Moderate Current Severity: Moderate Pain Intensity: 6 Pain Scale Used: 0-10 Numeric - Allergy/Home Medications Allergies/Adverse Reactions: Allergies Allergy/AdvReac Type Severity Reaction Status Date / Time No Known Allergies Allergy Verified 11/11/17 09:07 Review of Systems Constitutional: Negative Skin: Other - Abscess left axilla Respiratory: Negative Cardiovascular: Negative Neurovascular: Negative Neurological: Negative Psychological: Negative All Other Systems Reviewed And Are Negative: Yes PMH/Surg Hx/FS Hx/Imm Hx Endocrine History: Diabetes Cardiovascular History: Hypertension Psychological History: Schizophrenia Other History Of: Negative For: Anticoagulant Therapy - Surgical History Surgical History: Yes Surgery Procedure, Year, and Place: ankle surgery when a child - Family History Known Family History: Positive: Cardiac Disease, Hypertension, Other - cancer mother - Social History Lives: With Family Alcohol Use: None Alcohol Amount: patient states he has not drank in 2 mths Substance Use Type: Marijuana Substance Use Comment - Amount & Last Used: "little bit of weed here and there. " Smoking Status (MU): Heavy Every Day Tobacco Smoker Type: Cigarettes Amount Used/How Often: 20 cigarettes per day Length of Time of Smoking/Using Tobacco: 16 years Have You Smoked in the Last Year: Yes Household Exposure Type: Cigarettes - Immunization History Most Recent Influenza Vaccination: unknown Most Recent Tetanus Shot: UTD Most Recent Pneumonia Vaccination: as infant Physical Exam - Summary Physical Exam Summary: GENERAL: NAD. WDWN. No pain distress. SKIN: Left axilla: Packing removed - mild drainage able to be expressed. Mild TTP. Healing well. NECK: Supple. Nontender. No lymphadenopathy. CHEST: No accessory muscle use. Breathing comfortably and in no distress. CV: Pulses intact. Cap refill <2seconds NEURO: Alert. PSYCH: Age appropriate behavior. Triage Information Reviewed: Yes Course/Dx - Course Course Of Treatment: Left axilla abscess - healing well. Wound was dressed with telfa and pt advised to change dressing daily and return if needed. - Diagnoses Provider Diagnoses: Left axilla abscess Discharge - Sign-Out/Discharge Documenting (check all that apply): Patient Departure All imaging exams completed and their final reports reviewed: No Studies - Discharge Plan Condition: Stable Disposition: HOME Referrals: Martín Ferreira MD [Primary Care Provider] - Additional Instructions: If you develop a fever, shortness of breath, chest pain, new or worsening symptoms - please call your PCP or go to the ED. - Billing Disposition and Condition Condition: STABLE Disposition: Home
== END 2017-11-13 10:49 | disposition home or self-care (01) ==
LOC: UCEAST 10:49
DX: L02.412 Cutaneous abscess of left axilla (principal); F17.210 Nicotine dependence, cigarettes, uncomplicated
CPT/HCPCS: 99212; G0463

== ENCOUNTER 2017-11-28 15:52 | Emergency (ER) | payer MEDICAID ==
--- NOTE | 2017-11-28 16:12 | ED ---
Psychiatric Complaint - HPI Summary HPI Summary: Patient is a 37 y/o M w/ c/o SI. He states that he went to see his therapist for a regularly scheduled appointment today and his therapist suggested he come to the ED. He notes his plan is to overdose on pills, drugs, "whatever it takes ". He states he has attempted to overdose on drugs before. On triage, pain is denied, nothing is noted to aggravate/alleviate Sx. PMHx of depression is reported. - History Of Current Complaint Chief Complaint: EDMentalHealth Time Seen by Provider: 11/28/17 16:02 Hx Obtained From: Patient Onset/Duration: Still Present Severity Currently: None - pain is denied Character: Depressed Aggravating Factor(s): Nothing Alleviating Factor(s): Nothing Has Suicidal: Reports: Thoughts, With A Plan, Has Prior Attempt(s) - Allergies/Home Medications Allergies/Adverse Reactions: Allergies Allergy/AdvReac Type Severity Reaction Status Date / Time No Known Allergies Allergy Verified 11/11/17 09:07 Home Medications: Home Medications QUEtiapine TAB* [Seroquel 100 MG *] 100 - 200 mg PO BEDTIME 11/28/17 [History Confirmed 11/28/17] PMH/Surg Hx/FS Hx/Imm Hx Endocrine/Hematology History: Denies: Hx Anticoagulant Therapy, Hx Blood Disorders, Hx Blood Transfusions, Hx Bone Marrow Disease, Hx Diabetes, Hx Systemic Lupus Erythematosus, Hx Sickle Cell Disease, Hx Thyroid Disease, Hx Anemia, Hx Unexplained Bleeding, Other Endocrine/Hematological Disorders Cardiovascular History: Reports: Hx Hypertension Denies: Hx Aneurysm, Hx Angina, Hx Angioplasty, Hx Auto Implanted Cardiovert Defib, Hx Cardiac Arrest, Hx Cardiomegaly, Hx Congenital Heart Disease, Hx Congestive Heart Failure, Hx Deep Vein Thrombosis, Hx Embolism, Hx Hypercholesterolemia, Hx Hypotension, Hx Pacemaker/ICD, Hx Peripheral Vascular Disease, Hx Rheumatic Fever, Hx Syncope, Hx Valvular Heart Disease, Other Cardiovascular Problems/Disorders Respiratory History: Reports: Hx Asthma, Hx Sleep Apnea Denies: Hx Chronic Bronchitis, Hx Chronic Obstructive Pulmonary Disease (COPD ), Hx Cystic Fibrosis, Hx Lung Cancer, Hx Pleural Effusion, Hx Pneumonia, Hx Pulmonary Edema, Hx Pulmonary Embolism, Hx Seasonal Allergies, Other Respiratory Problems/Disorders History: Denies: Hx Acute Renal Failure, Hx Benign Prostatic Hyperplasia, Hx Chronic Renal Failure, Hx Dialysis, Hx Kidney Infection, Hx Kidney Stones Musculoskeletal History: Reports: Hx Back Problems, Other Musculoskeletal History - broken ankles when a child, according to patient Denies: Hx Arthritis, Hx Bursitis, Hx Congenital Bone Abnormalities, Hx Fibromyalgia, Hx Gout, Hx Orthopedic Injury, Hx Osteoporosis, Hx Scoliosis, Hx Tendonitis Sensory History: Reports: Hx Contacts or Glasses - Pt. did not come to hospital w/ his glasses. Denies: Hx Cataracts, Hx Eye Injury, Hx Eye Prosthesis, Hx Glaucoma, Hx Legally Blind, Hx Macular Degeneration, Hx Vision Problem, Hx Deafness, Hx Hearing Aid, Hx Hearing Problem, Other Sensory Impairments Opthamlomology History: Reports: Hx Contacts or Glasses - Pt. did not come to hospital w/ his glasses. Denies: Hx Cataracts, Hx Eye Injury, Hx Eye Prosthesis, Hx Glaucoma, Hx Legally Blind, Hx Macular Degeneration, Hx Vision Problem, Other Sensory Impairments Neurological History: Denies: Hx Dementia, Hx Headaches, Hx Migraine, Hx Nerve Disease, Hx Seizures , Hx Spinal Cord Injury, Hx Transient Ischemic Attacks (TIA), Other Neuro Impairments/Disorders Psychiatric History: Reports: Hx Anxiety, Hx Depression, Hx Post Traumatic Stress Disorder, Hx Inpatient Treatment, Hx Community Mental Health Tx, Hx Schizophrenia, Hx Suicide Attempt, Hx of Violent Episodes Against Others, Hx Substance Abuse Denies: Hx Attention Deficit Hyperactivity Disorder, Hx Eating Disorder, Hx Panic Disorder, Hx Bipolar Disorder - Cancer History Hx Chemotherapy: No Hx Radiation Therapy: No Hx Palliative Cancer Treatment: No - Surgical History Surgery Procedure, Year, and Place: ankle surgery when a child Hx Anesthesia Reactions: No Infectious Disease History: No Infectious Disease History: Denies: Hx Clostridium Difficile, Hx Hepatitis, Hx Human Immunodeficiency Virus (HIV), Hx of Known/Suspected MRSA, Hx Shingles, Hx Tuberculosis, Hx Known/ Suspected VRE, Hx Known/Suspected VRSA, History Other Infectious Disease, Traveled Outside the [place] in Last 30 Days - Family History Known Family History: Positive: Cardiac Disease, Hypertension, Other - cancer mother - Social History Alcohol Use: None Alcohol Amount: patient states he has not drank in 2 mths Hx Substance Use: Yes Substance Use Type: Reports: Marijuana Substance Use Comment - Amount & Last Used: "little bit of weed here and there. " Hx Tobacco Use: Yes Smoking Status (MU): Heavy Every Day Tobacco Smoker Type: Cigarettes Amount Used/How Often: 20 cigarettes per day Length of Time of Smoking/Using Tobacco: 16 years Have You Smoked in the Last Year: Yes Review of Systems Negative: Fever - on vitals, temp is 97.5 F Positive: Depressed, Other - SI w/ plan All Other Systems Reviewed And Are Negative: Yes Physical Exam - Summary Physical Exam Summary: Appearance: The patient is well-nourished in no acute distress and in no acute pain. Skin: The skin is warm and dry and skin color reflects adequate perfusion. HEENT: The head is normocephalic and atraumatic. The pupils are equal and reactive. The conjunctivae are clear and without drainage. Nares are patent and without drainage. Mouth reveals moist mucous membranes and the throat is without erythema and exudate. The external ears are intact. The ear canals are patent and without drainage. The tympanic membranes are intact. Neck: The neck is supple with full range of motion and non-tender. There are no carotid bruits. There is no neck vein distension. Respiratory: Chest is non-tender. Lungs are clear to auscultation and breath sounds are symmetrical and equal. Cardiovascular: Heart is regular rate and rhythm. There is no murmur or rub auscultated. There is no peripheral edema and pulses are symmetrical and equal. Abdomen: The abdomen is soft and non-tender. There are normal bowel sounds heard in all four quadrants and there is no organomegaly palpated. Musculoskeletal: There is no back tenderness noted. Extremities are non-tender with full range of motion. There is good capillary refill. There is no peripheral edema or calf tenderness elicited. Neurological: Patient is alert and oriented to person, place and time. The patient has symmetrical motor strength in all four extremities. Cranial nerves are grossly intact. Deep tendon reflexes are symmetrical and equal in all four extremities. Psychiatric: The patient has an appropriate affect and does not exhibit any anxiety or depression. Triage Information Reviewed: Yes Vital Signs On Initial Exam: Initial Vitals Temp Pulse Resp BP Pulse Ox 97.5 F 73 16 163/101 100 11/28/17 15:55 11/28/17 15:55 11/28/17 15:55 11/28/17 15:55 11/28/17 15:55 Vital Signs Reviewed: Yes Diagnostics - Vital Signs Vital Signs Temp Pulse Resp BP Pulse Ox 11/28/17 15:55 97.5 F 73 16 163/101 100 - Laboratory Result Diagrams: 11/28/17 18:32 11/28/17 19:46 Lab Statement: Any lab studies that have been ordered have been reviewed, and results considered in the medical decision making process. Re-Evaluation - Re-Evaluation First Eval Re-Evaluation Time: 19:35 Comment: Patient medically cleared for MHE. Course/Dx - Course Course Of Treatment: Mr. Marino was medically cleared in the emergency department and underwent a mental health eval. They felt that he was safe for discharge. - Differential Dx/Clinical Impression Provider Diagnosis: Depressive disorder - Physician Notifications Discussed Care Of Patient With: Sathya Urias Time Discussed With Above Provider: 22:07 Instructed by Provider To: Other - Dr. Urias reviewed patient's case at 2006. Patient will be discharged to home with Dx of depressive disorder. Dr. Moreno is agreeable with this plan. Discharge - Sign-Out/Discharge Documenting (check all that apply): Patient Departure - discharge - Discharge Plan Condition: Stable Disposition: HOME Referrals: Martín Ferreira MD [Primary Care Provider] - - Billing Disposition and Condition Condition: STABLE Disposition: Home - Attestation Statements Document Initiated by Scribe: Yes Documenting Scribe: Larry Thompson Provider For Whom Scribe is Documenting (Include Credential): Ulises Moreno MD Scribe Attestation: Larry Summers scribed for Ulises Moreno MD on 11/28/17 at 2217. Scribe Documentation Reviewed: Yes Provider Attestation: The documentation as recorded by the Larry varma accurately reflects the service I personally performed and the decisions made by me, Ulises Moreno MD
[2017-11-28 18:36] LABS: Urine Appearance Clear; Urine Blood Negative (Negative); Urine Color Yellow; Urine Ketones Negative (Negative); Urine Protein Negative (Negative); Urine Specific Gravity 1.017 (1.010-1.030); Urine Urobilinogen Negative (Negative)
[2017-11-28 18:52] LABS: ABS Basophils 0 10^3/ul (0-0.2); ABS Eosinophils 0.1 10^3/ul (0-0.6); ABS Lymphocytes 4.5 10^3/ul (1.0-4.8); ABS Monocytes 0.8 10^3/ul (0-0.8); ABS Neutrophils 6.1 10^3/ul (1.5-7.7); ABS Nucleated RBC 0 10^3/ul; Eosinophil % 1.3 % (0-6); Hematocrit 37 % (42-52); Hemoglobin 12.1 g/dl (14.0-18.0); Lymphocyte % 38.4 % (25-47); Mean Corpuscular HGB Conc 33 g/dl (31-36); Mean Corpuscular Hemoglobin 28 pg (27-31); Mean Corpuscular Volume 84 fL (80-94); Mean Platelet Volume 8.8 um3 (7.4-10.4); Nucleated Red Blood Cells % 0.1; Platelet Count 252 10^3/ul (150-450); Red Cell Distribution Width 15 % (10.5-15); White Blood Count 11.6 10^3/ul (3.5-10.8)
[2017-11-28 19:08] LABS: EGFR Non-African American 147.9 (>60)
[2017-11-28 22:47] VITALS: BP 168/112
== END 2017-11-28 23:11 | disposition home or self-care (01) ==
LOC: ED 15:52
DX: F32.9 Major depressive disorder, single episode, unspecified (principal); I10 Essential (primary) hypertension; J45.909 Unspecified asthma, uncomplicated; F17.210 Nicotine dependence, cigarettes, uncomplicated; Z79.899 Other long term (current) drug therapy
CPT/HCPCS: 36415; 80053; 80307; 80320; 80329; 81003; 84443; 85025; 99284; G0480

== ENCOUNTER 2018-04-21 07:37 | Day surgery (SDC) | payer MEDICAID, OTHER ==
[~2018-04-21 07:37] MED LIST: Acetaminophen TAB* 325 MG PO PRN; Buffered Lidocaine 1% SYRIN* 1 ML/SYRINGE INTRADERM ONE
[2018-04-21] MEDS ORDERED: Midazolam* 1 MG/ML 2 ML VIAL (2 MG) ONE (09:27)
[2018-04-21] MEDS ORDERED: Propofol* 10 MG/ML 20 ML BTL ONE (09:28)
[2018-04-21] MEDS ORDERED: Lidocaine 2% PF * 5 ML VIAL ONE (09:28)
[2018-04-21] MEDS ORDERED: fentaNYL* 50 MCG/ML 2 ML VIAL (100 MCG VIAL) ONE (09:28)
[2018-04-21 10:07] VITALS: BP 147/96
--- NOTE | 2018-04-21 11:56 | OP ---
DATE OF OPERATION: 04/21/18 [facility] DATE OF : 78 SURGEON: Dr. Andrew Burnett. SUPERVISOR COMMUNICATIONS AND SIGNALS: None. ANESTHESIA: Topical with intravenous sedation. PRE-OP DIAGNOSIS: Cataract, left eye, with high myopia and possible amblyopia. POST-OP DIAGNOSIS: Cataract, left eye, with high myopia and possible amblyopia. OPERATIVE PROCEDURE: Phacoemulsification and cataract extraction with posterior chamber intraocular lens implant. COMPLICATIONS: None. ESTIMATED BLOOD LOSS: None. DESCRIPTION OF PROCEDURE: The patient was brought to the operating room and given intravenous sedation. A drop of tetracaine was placed in his left eye. The patient was prepped and draped in the usual sterile fashion for ophthalmic surgery and attention was directed to the left eye, where a speculum was placed. A paracentesis was created at the 5 o'clock position and 0.1 cc of 1% preservative-free lidocaine was injected into the anterior chamber followed by DisCoVisc. The eye was digitally stabilized while a 2.75 mm keratome was used to create a triplanar clear corneal incision at the 3 o'clock position. A continuous curvilinear capsulorrhexis was created with a cystotome and Utrata forceps. BSS on a cannula was used to hydrodissect the lens from the capsule. Phacoemulsification was performed in a [id number] technique to create 4 fragments which were removed. Residual cortical material was removed with irrigation and aspiration. The capsular bag was polished. Provisc was placed into the anterior chamber and capsule. The eye pressure was measured with intraoperative tonometer. The surface of the eye was lubricated. The ORA instrument was employed to help choose proper lens implant. An MN60MA +2.0 diopter lens was chosen. The lens was manually folded on the sterile table and inserted into the capsular bag. The trailing haptic was gently dialed into place using a Amrit hook. Viscoelastic was removed from the eye using irrigation and aspiration. BSS on a cannula was used to hydrate the corneal stroma and seal the wound. At the end of the case, the pupil was round, the lens was centered and stable, the eye pressure appeared normal, and the wound was watertight. The speculum was removed and topical Maxitrol ointment was placed on the surface of the eye. The eye was closed, patched, and shielded, and the patient was sent to recovery room in stable condition with postop instructions and followup appointment given. [id number]/[facility] #: [id number] RADHA
[2018-04-21] MEDS ORDERED: Cyclopentolate 1% OPTH.SOL* 2 ML BTL ONE (13:50)
[2018-04-21] MEDS ORDERED: Phenylephrine 2.5% OPTH.SOL* 2 ML BTL ONE (13:50)
[2018-04-21] MEDS ORDERED: Ketorolac 0.5% OPHTH (NF) 0.5 % 5 ML BTL ONE (13:50)
[2018-04-21] MEDS ORDERED: Lidocaine 1%* 5 ML VIAL ONE (13:50)
[2018-04-21] MEDS ORDERED: Neomycin/Polymy/Dex OPHTH.OIN* 3.5 GM ONE (13:50)
[2018-04-21] MEDS ORDERED: Tropicamide 1% OPTH.SOL* BTL ONE (13:50)
[2018-04-21] MEDS ORDERED: Tetracaine 0.5% OPTH.SOL 4 ML* 1 DROP BTL ONE (13:50)
== END 2018-04-21 10:33 | disposition home or self-care (01) ==
LOC: OREAST 07:37
PROVIDERS: ATTEND Ophthalmology
DX: H25.12 Age-related nuclear cataract, left eye (principal); E11.9 Type 2 diabetes mellitus without complications; Z79.84 Long term (current) use of oral hypoglycemic drugs; Z72.0 Tobacco use; J44.9 Chronic obstructive pulmonary disease, unspecified; G47.33 Obstructive sleep apnea (adult) (pediatric); I10 Essential (primary) hypertension
CPT/HCPCS: A9270-GY; J2250; J2704; J3010; V2632

== ENCOUNTER 2018-08-03 11:41 | Emergency (ER) | payer OTHER ==
[2018-08-03 12:46] VITALS: BP 147/91
--- NOTE | 2018-08-03 13:26 | ED ---
Back Pain - HPI Summary HPI Summary: Patient is a 38-year-old male who presents emergency department for low back pain 3 days. Pain is located across his low back and radiates into bilateral legs. Denies leg numbness, tingling or weakness. Denies fever, bowel or bladder incontinence or retention. Patient does not recall any specific injuries or falls. Patient notes he has a history of intermittent low back pain. 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 Symptoms are mild in severity. Movement makes symptoms worse. Nothing makes symptoms better. - History of Current Complaint Chief Complaint: EDBackInjuryPain Stated Complaint: BACK PAIN PER PT Time Seen by Provider: 08/03/18 12:37 Hx Obtained From: Patient Pain Intensity: 7 - Allergies/Home Medications Allergies/Adverse Reactions: Allergies Allergy/AdvReac Type Severity Reaction Status Date / Time dairy Allergy GI Upset Uncoded 04/21/18 08:21 PMH/Surg Hx/FS Hx/Imm Hx Previously Healthy: Yes Endocrine/Hematology History: Reports: Hx Diabetes - type2, Hx Anemia - mild Denies: Hx Anticoagulant Therapy, Hx Blood Disorders, Hx Blood Transfusions, Hx Bone Marrow Disease, Hx Systemic Lupus Erythematosus, Hx Sickle Cell Disease , Hx Thyroid Disease, Hx Unexplained Bleeding, Other Endocrine/Hematological Disorders Cardiovascular History: Reports: Hx Hypertension - on meds Denies: Hx Aneurysm, Hx Angina, Hx Angioplasty, Hx Auto Implanted Cardiovert Defib, Hx Cardiac Arrest, Hx Cardiomegaly, Hx Congenital Heart Disease, Hx Congestive Heart Failure, Hx Deep Vein Thrombosis, Hx Embolism, Hx Hypercholesterolemia, Hx Hypotension, Hx Pacemaker/ICD, Hx Peripheral Vascular Disease, Hx Rheumatic Fever, Hx Syncope, Hx Valvular Heart Disease, Other Cardiovascular Problems/Disorders Respiratory History: Reports: Hx Asthma, Hx Sleep Apnea Denies: Hx Chronic Bronchitis, Hx Chronic Obstructive Pulmonary Disease (COPD ), Hx Cystic Fibrosis, Hx Lung Cancer, Hx Pleural Effusion, Hx Pneumonia, Hx Pulmonary Edema, Hx Pulmonary Embolism, Hx Seasonal Allergies, Other Respiratory Problems/Disorders GI History: Denies: Other GI Disorders History: Denies: Hx Acute Renal Failure, Hx Benign Prostatic Hyperplasia, Hx Chronic Renal Failure, Hx Dialysis, Hx Kidney Infection, Hx Kidney Stones Musculoskeletal History: Reports: Hx Back Problems, Other Musculoskeletal History - broken ankles when a child, according to patient Denies: Hx Arthritis, Hx Bursitis, Hx Congenital Bone Abnormalities, Hx Fibromyalgia, Hx Gout, Hx Orthopedic Injury, Hx Osteoporosis, Hx Scoliosis, Hx Tendonitis Sensory History: Reports: Hx Cataracts - blaine, Hx Contacts or Glasses - glasses Denies: Hx Eye Injury, Hx Eye Prosthesis, Hx Glaucoma, Hx Legally Blind, Hx Macular Degeneration, Hx Vision Problem, Hx Deafness, Hx Hearing Aid, Hx Hearing Problem, Other Sensory Impairments Opthamlomology History: Reports: Hx Cataracts - blaine, Hx Contacts or Glasses - glasses Denies: Hx Eye Injury, Hx Eye Prosthesis, Hx Glaucoma, Hx Legally Blind, Hx Macular Degeneration, Hx Vision Problem, Other Sensory Impairments Neurological History: Denies: Hx Dementia, Hx Headaches, Hx Migraine, Hx Nerve Disease, Hx Seizures , Hx Spinal Cord Injury, Hx Transient Ischemic Attacks (TIA), Other Neuro Impairments/Disorders Psychiatric History: Reports: Hx Anxiety - on meds, Hx Depression - on meds, Hx Post Traumatic Stress Disorder, Hx Inpatient Treatment, Hx Community Mental Health Tx, Hx Schizophrenia, Hx Suicide Attempt, Hx of Violent Episodes Against Others, Hx Substance Abuse Denies: Hx Attention Deficit Hyperactivity Disorder, Hx Eating Disorder, Hx Panic Disorder, Hx Bipolar Disorder - Cancer History Hx Chemotherapy: No Hx Radiation Therapy: No Hx Palliative Cancer Treatment: No - Surgical History Surgery Procedure, Year, and Place: right cataract, 2015, [facility] Hx Anesthesia Reactions: No Infectious Disease History: No Infectious Disease History: Denies: Hx Clostridium Difficile, Hx Hepatitis, Hx Human Immunodeficiency Virus (HIV), Hx of Known/Suspected MRSA, Hx Shingles, Hx Tuberculosis, Hx Known/ Suspected VRE, Hx Known/Suspected VRSA, History Other Infectious Disease, Traveled Outside the [place] in Last 30 Days - Family History Known Family History: Positive: Cardiac Disease, Hypertension, Other - cancer mother - Social History Occupation: Employed Full-time Lives: With Family Alcohol Use: None Alcohol Amount: patient states he has not drank in 2 mths Hx Substance Use: Yes Substance Use Type: Reports: Marijuana Substance Use Comment - Amount & Last Used: "little bit of weed here and there. " Hx Tobacco Use: Yes Smoking Status (MU): Heavy Every Day Tobacco Smoker Type: Cigarettes Amount Used/How Often: pack a day for 25 years Length of Time of Smoking/Using Tobacco: 16 years Have You Smoked in the Last Year: Yes Review of Systems Constitutional: Negative Negative: Fever, Chills Gastrointestinal: Negative Negative: Abdominal Pain Genitourinary: Negative Negative: dysuria, flank pain, hematuria Positive: Other - low back pain Neurological: Negative Negative: Weakness, Paresthesia, Numbness All Other Systems Reviewed And Are Negative: Yes Physical Exam Triage Information Reviewed: Yes Vital Signs On Initial Exam: Initial Vitals Temp Pulse Resp BP Pulse Ox 98.1 F 84 16 153/110 99 08/03/18 11:48 08/03/18 11:48 08/03/18 11:48 08/03/18 11:48 08/03/18 11:48 Vital Signs Reviewed: Yes Appearance: Positive: Well-Appearing - Pt. lying in bed in NAD. Moved from lying to sitting without difficulty. SO present. Skin: Positive: Warm, Dry Head/Face: Positive: Normal Head/Face Inspection Eyes: Positive: Normal, EOMI, NAYELI Neck: Positive: Supple Musculoskeletal: Positive: Other - Midline lumbar tenderness and pain over bilateral SI joints. 5/5 strength in bilateral LEs. Neurological: Positive: Normal, CN Intact II-III Psychiatric: Positive: Affect/Mood Appropriate Diagnostics - Vital Signs Vital Signs Temp Pulse Resp BP Pulse Ox 08/03/18 12:45 98.7 F 70 18 147/91 100 08/03/18 11:48 98.1 F 84 16 153/110 99 - Laboratory Lab Statement: Any lab studies that have been ordered have been reviewed, and results considered in the medical decision making process. Back Pain Course/Dx - Course Course Of Treatment: Patient presenting with ongoing low back pain. He has no neurological deficits or evidence of cauda equina syndrome. X-rays negative for acute findings. Which are patient with naproxen and Flexeril. Advised warm compresses to low back. Avoid heavy lifting. To follow-up with the [facility] for further evaluation. Work excuse given. Patient to return to ER symptoms change or worsen. - Diagnoses Differential Diagnosis/HQI/PQRI: Positive: Fracture, Herniated Disc, Neoplasm, Renal Colic, Strain, Sprain Provider Diagnoses: Lumbar strain Discharge - Sign-Out/Discharge Documenting (check all that apply): Patient Departure Patient Received Moderate/Deep Sedation with Procedure: No - Discharge Plan Condition: Good Disposition: HOME Prescriptions: Cyclobenzaprine TAB* [Flexeril 10 MG TAB*] 10 mg PO TID PRN #9 tab PRN Reason: Pain Naproxen [Naproxen 500 mg tab] 500 mg PO BID #20 tablet Patient Education Materials: Low Back Strain (ED) Forms: *Work Release Referrals: [facility] [Outside] Additional Instructions: Call the [facility] to schedule a follow up appointment Take medication as directed Apply warm compresses Avoid heavy lifting Return to ER if symptoms change or worsen - Billing Disposition and Condition Condition: GOOD Disposition: Home
== END 2018-08-03 12:45 | disposition home or self-care (01) ==
LOC: ED 11:41
DX: S39.012A Strain of muscle, fascia and tendon of lower back, initial encounter (principal); X58.XXXA Exposure to other specified factors, initial encounter; E11.9 Type 2 diabetes mellitus without complications; D64.9 Anemia, unspecified; I10 Essential (primary) hypertension; F17.210 Nicotine dependence, cigarettes, uncomplicated
CPT/HCPCS: 72110; 99282

== ENCOUNTER 2018-11-05 16:53 | Emergency (ER) | payer OTHER ==
--- NOTE | 2018-11-05 19:27 | ED ---
Lower Extremity - HPI Summary HPI Summary: 38 yo male presents with RIGHT knee pain. He tells me that since 11/02 he has had right knee pain and swelling without a known injury. He has been taking tylenol for his discomfort with little relief. He took today off and is requesting a note for work. He is ambulatory without assistance. Denies fever, chills, injury , numbness, or tingling. No hx of surgery to this knee. He is diabetic - History of Current Complaint Chief Complaint: EDExtremityLower Stated Complaint: RT KNEE PAIN PER PT Time Seen by Provider: 11/05/18 19:27 Hx Obtained From: Patient Severity Initially: Mild Severity Currently: Moderate Pain Intensity: 6 Pain Scale Used: 0-10 Numeric - Allergies/Home Medications Allergies/Adverse Reactions: Allergies Allergy/AdvReac Type Severity Reaction Status Date / Time dairy Allergy GI Upset Uncoded 11/05/18 16:56 PMH/Surg Hx/FS Hx/Imm Hx Endocrine/Hematology History: Reports: Hx Diabetes - type2, Hx Anemia - mild Denies: Hx Anticoagulant Therapy, Hx Blood Disorders, Hx Blood Transfusions, Hx Bone Marrow Disease, Hx Systemic Lupus Erythematosus, Hx Sickle Cell Disease , Hx Thyroid Disease, Hx Unexplained Bleeding, Other Endocrine/Hematological Disorders Cardiovascular History: Reports: Hx Hypertension - on meds Denies: Hx Aneurysm, Hx Angina, Hx Angioplasty, Hx Auto Implanted Cardiovert Defib, Hx Cardiac Arrest, Hx Cardiomegaly, Hx Congenital Heart Disease, Hx Congestive Heart Failure, Hx Deep Vein Thrombosis, Hx Embolism, Hx Hypercholesterolemia, Hx Hypotension, Hx Pacemaker/ICD, Hx Peripheral Vascular Disease, Hx Rheumatic Fever, Hx Syncope, Hx Valvular Heart Disease, Other Cardiovascular Problems/Disorders Respiratory History: Reports: Hx Asthma, Hx Sleep Apnea Denies: Hx Chronic Bronchitis, Hx Chronic Obstructive Pulmonary Disease (COPD ), Hx Cystic Fibrosis, Hx Lung Cancer, Hx Pleural Effusion, Hx Pneumonia, Hx Pulmonary Edema, Hx Pulmonary Embolism, Hx Seasonal Allergies, Other Respiratory Problems/Disorders GI History: Denies: Other GI Disorders History: Denies: Hx Acute Renal Failure, Hx Benign Prostatic Hyperplasia, Hx Chronic Renal Failure, Hx Dialysis, Hx Kidney Infection, Hx Kidney Stones Musculoskeletal History: Reports: Hx Back Problems, Other Musculoskeletal History - broken ankles when a child, according to patient Denies: Hx Arthritis, Hx Bursitis, Hx Congenital Bone Abnormalities, Hx Fibromyalgia, Hx Gout, Hx Orthopedic Injury, Hx Osteoporosis, Hx Scoliosis, Hx Tendonitis Sensory History: Reports: Hx Cataracts - blaine, Hx Contacts or Glasses - glasses Denies: Hx Eye Injury, Hx Eye Prosthesis, Hx Glaucoma, Hx Legally Blind, Hx Macular Degeneration, Hx Vision Problem, Hx Deafness, Hx Hearing Aid, Hx Hearing Problem, Other Sensory Impairments Opthamlomology History: Reports: Hx Cataracts - blaine, Hx Contacts or Glasses - glasses Denies: Hx Eye Injury, Hx Eye Prosthesis, Hx Glaucoma, Hx Legally Blind, Hx Macular Degeneration, Hx Vision Problem, Other Sensory Impairments Neurological History: Denies: Hx Dementia, Hx Headaches, Hx Migraine, Hx Nerve Disease, Hx Seizures , Hx Spinal Cord Injury, Hx Transient Ischemic Attacks (TIA), Other Neuro Impairments/Disorders Psychiatric History: Reports: Hx Anxiety - on meds, Hx Depression - on meds, Hx Post Traumatic Stress Disorder, Hx Inpatient Treatment, Hx Community Mental Health Tx, Hx Schizophrenia, Hx Suicide Attempt, Hx of Violent Episodes Against Others, Hx Substance Abuse Denies: Hx Attention Deficit Hyperactivity Disorder, Hx Eating Disorder, Hx Panic Disorder, Hx Bipolar Disorder - Cancer History Hx Chemotherapy: No Hx Radiation Therapy: No Hx Palliative Cancer Treatment: No - Surgical History Surgery Procedure, Year, and Place: right cataract, 2015, [facility] Hx Anesthesia Reactions: No Infectious Disease History: No Infectious Disease History: Denies: Hx Clostridium Difficile, Hx Hepatitis, Hx Human Immunodeficiency Virus (HIV), Hx of Known/Suspected MRSA, Hx Shingles, Hx Tuberculosis, Hx Known/ Suspected VRE, Hx Known/Suspected VRSA, History Other Infectious Disease, Traveled Outside the [place] in Last 30 Days - Family History Known Family History: Positive: Cardiac Disease, Hypertension, Other - cancer mother - Social History Alcohol Use: None Alcohol Amount: patient states he has not drank in 2 mths Hx Substance Use: Yes Substance Use Type: Reports: Marijuana Substance Use Comment - Amount & Last Used: "little bit of weed here and there. " Hx Tobacco Use: Yes Smoking Status (MU): Heavy Every Day Tobacco Smoker Type: Cigarettes Amount Used/How Often: pack a day for 25 years Length of Time of Smoking/Using Tobacco: 16 years Have You Smoked in the Last Year: Yes Review of Systems Constitutional: Negative Cardiovascular: Negative Respiratory: Negative Gastrointestinal: Negative Genitourinary: Negative Musculoskeletal: Other - Right knee pain Skin: Negative Neurological: Negative Psychological: Normal All Other Systems Reviewed And Are Negative: No Physical Exam - Summary Physical Exam Summary: GENERAL: NAD. WDWN. No pain distress. SKIN: No rashes, sores, lesions, or open wounds. CHEST: No accessory muscle use. Breathing comfortably and in no distress. CV: Pulses intact popliteal, PT, and DP. Cap refill <2seconds MSK: RIGHT KNEE: Mild edema about knee. NTTP. Mild pain with flexion about entire knee. Flexion to ~75deg before pain stops him. Strength 5/5. No patella apprehension. Negative Khadar, A/P drawer, Eloisa, and varus/valgus stress. NEURO: Alert. Sensations intact and symmetric B/L LEs PSYCH: Age appropriate behavior. Triage Information Reviewed: Yes Vital Signs On Initial Exam: Initial Vitals Temp Pulse Resp BP Pulse Ox 98.2 F 88 16 164/108 99 11/05/18 16:55 11/05/18 16:55 11/05/18 16:55 11/05/18 16:55 11/05/18 16:55 Vital Signs Reviewed: Yes Diagnostics - Vital Signs Vital Signs Temp Pulse Resp BP Pulse Ox 11/05/18 18:37 97.9 F 76 18 150/98 97 11/05/18 16:55 98.2 F 88 16 164/108 99 - Laboratory Lab Statement: Any lab studies that have been ordered have been reviewed, and results considered in the medical decision making process. - Radiology XR knee Radiology Interpretation Completed By: ED Physician Summary of Radiographic Findings: No acute process Lower Extremity Course/Dx - Course Course Of Treatment: Low suspicion for infection or septic joint at this time. Given his diabetes and atraumtic pain, I discussed with Dr. Longoria 1939 and he agrees that this is non-infectious. XR as above. Will dc with pain medication as he cannot take NSAIDs and advise to RICE and f/u with Orthopedics within 5 days for a recheck. - Diagnoses Provider Diagnoses: Right knee pain Discharge ED - Sign-Out/Discharge Documenting (check all that apply): Patient Departure Patient Received Moderate/Deep Sedation with Procedure: No - Discharge Plan Condition: Stable Disposition: HOME Prescriptions: traMADol TAB* [Ultram*] 50 mg PO Q12H PRN #6 tab MDD 2 PRN Reason: Pain - Severe Patient Education Materials: Swollen Knee Joint (ED), Knee Pain (ED) Forms: *Work Release Referrals: No Primary Care Phys,NOPCP [Primary Care Provider] - Additional Instructions: If you develop a fever, shortness of breath, chest pain, new or worsening symptoms - please call your PCP or go to the ED immediately. Your blood pressure was high at todays visit. Please see your primary provider within 4 weeks for recheck and re-evaluation. I recommend that you call Orthopedics tomorrow to schedule an appointment for a recheck within 5 days. - Billing Disposition and Condition Condition: STABLE Disposition: Home - Attestation Statements Provider Attestation: Patient was presented to me by the MICHELLE. Patient has had right knee pain for the past couple of days. Patient has no infectious symptoms including fever, chills, nausea, vomiting. Patient has never had a joint infection before or symptoms like this. Patient has full range of motion in his right knee. Patient has no erythema or warmth to his right knee. Patient's knee slightly swollen. Given the fact patient has no overlying erythema, warmth, and has full range motion his knee I doubt this is septic arthritis clinically.
[2018-11-05 20:07] VITALS: BP 143/82
== END 2018-11-05 20:06 | disposition home or self-care (01) ==
LOC: ED 16:53
DX: M25.561 Pain in right knee (principal); M17.11 Unilateral primary osteoarthritis, right knee; E11.9 Type 2 diabetes mellitus without complications; D64.9 Anemia, unspecified; I10 Essential (primary) hypertension; J45.909 Unspecified asthma, uncomplicated; F41.9 Anxiety disorder, unspecified; F32.9 Major depressive disorder, single episode, unspecified; F43.10 Post-traumatic stress disorder, unspecified; F17.210 Nicotine dependence, cigarettes, uncomplicated; Z79.84 Long term (current) use of oral hypoglycemic drugs; Z79.899 Other long term (current) drug therapy
CPT/HCPCS: 99282

== ENCOUNTER 2019-02-10 17:06 | Emergency (ER) | payer OTHER ==
[2019-02-10 19:37] LABS: ABS Basophils 0.1 10^3/ul (0-0.2); ABS Eosinophils 0.1 10^3/ul (0-0.6); ABS Lymphocytes 4.1 10^3/ul (1.0-4.8); ABS Monocytes 0.8 10^3/ul (0-0.8); ABS Neutrophils 7.6 10^3/ul (1.5-7.7); Eosinophil % 0.5 %; Hematocrit 38 % (42-52); Hemoglobin 12.5 g/dL (14.0-18.0); Lymphocyte % 32.3 %; Mean Corpuscular HGB Conc 33 g/dL (31-36); Mean Corpuscular Hemoglobin 27 pg (27-31); Mean Corpuscular Volume 83 fL (80-94); Nucleated Red Blood Cells % 0.1; Platelet Count 267 10^3/uL (150-450); Red Cell Distribution Width 15 % (10-15); White Blood Count 12.7 10^3/uL (3.5-10.8)
[2019-02-10 19:49] LABS: INR 1.17 (0.82-1.09)
--- NOTE | 2019-02-10 19:51 | ED ---
HPI Chest Pain - HPI Summary HPI Summary: The patient is a 38 y/o M presenting to [facility] with a chief complaint of mid- sternal CP onset yesterday. He reports that he was trying to sleep when the pain began last night and has been constant since with pain rated 6/10 in severity. He endorses nausea, diaphoresis, and mild SOB. He states a similar episode a few years ago with normal EKG and stress test following that. He additionally c/o back pain of the entire back which is usually chronic but has been worse recently causing sleep disturbance. He denies any pain or swelling in legs, cough. No history of blood clots. No recent long travel. No recent surgery. No erectile dysfunction medications. No daily ASA or anticoagulants. Mother passed from cancer but had extensive cardiac history with multiple MIs ( unknown age). PMHx: DM, sleep apnea, emphysema, asthma, HTN. Current smoker, no EtOH, marijuana use. Medications reviewed. Allergies noted. - History of Current Complaint Chief Complaint: EDChestPainROMI Time Seen by Provider: 02/10/19 19:31 Hx Obtained From: Patient Onset/Duration: Started Hours Ago - yesterday, Still Present Timing: Constant Initial Severity: Moderate Current Severity: Moderate Pain Intensity: 6 Pain Scale Used: 0-10 Numeric Chest Pain Location: Mid Sternal Chest Pain Radiates: No Character: Dull/Aching Aggravating Factor(s): Nothing Alleviating Factor(s): Nothing Associated Signs and Symptoms: Positive: Chest Pain, Shortness of Breath - mild , Diaphoresis, Nausea. Negative: Cough, Edema, Other: - myalgia - Additional Pertinent History Primary Care Physician: MARYAN - Allergy/Home Medications Allergies/Adverse Reactions: Allergies Allergy/AdvReac Type Severity Reaction Status Date / Time dairy Allergy GI Upset Uncoded 12/29/18 13:54 PMH/Surg Hx/FS Hx/Imm Hx Endocrine/Hematology History: Reports: Hx Diabetes - type2, Hx Anemia - mild Denies: Hx Anticoagulant Therapy, Hx Blood Disorders, Hx Blood Transfusions, Hx Bone Marrow Disease, Hx Systemic Lupus Erythematosus, Hx Sickle Cell Disease , Hx Thyroid Disease, Hx Unexplained Bleeding, Other Endocrine/Hematological Disorders Cardiovascular History: Reports: Hx Hypertension - on meds Denies: Hx Aneurysm, Hx Angina, Hx Angioplasty, Hx Auto Implanted Cardiovert Defib, Hx Cardiac Arrest, Hx Cardiomegaly, Hx Congenital Heart Disease, Hx Congestive Heart Failure, Hx Deep Vein Thrombosis, Hx Embolism, Hx Hypercholesterolemia, Hx Hypotension, Hx Pacemaker/ICD, Hx Peripheral Vascular Disease, Hx Rheumatic Fever, Hx Syncope, Hx Valvular Heart Disease, Other Cardiovascular Problems/Disorders Respiratory History: Reports: Hx Asthma, Hx Sleep Apnea, Other Respiratory Problems/Disorders - emphysema Denies: Hx Chronic Bronchitis, Hx Chronic Obstructive Pulmonary Disease (COPD ), Hx Cystic Fibrosis, Hx Lung Cancer, Hx Pleural Effusion, Hx Pneumonia, Hx Pulmonary Edema, Hx Pulmonary Embolism, Hx Seasonal Allergies GI History: Denies: Other GI Disorders History: Denies: Hx Acute Renal Failure, Hx Benign Prostatic Hyperplasia, Hx Chronic Renal Failure, Hx Dialysis, Hx Kidney Infection, Hx Kidney Stones, Hx Renal Disease Musculoskeletal History: Reports: Hx Back Problems, Other Musculoskeletal History - broken ankles when a child, according to patient Denies: Hx Arthritis, Hx Bursitis, Hx Congenital Bone Abnormalities, Hx Fibromyalgia, Hx Gout, Hx Orthopedic Injury, Hx Osteoporosis, Hx Scoliosis, Hx Tendonitis Sensory History: Reports: Hx Cataracts - blaine, Hx Contacts or Glasses - glasses Denies: Hx Eye Injury, Hx Eye Prosthesis, Hx Glaucoma, Hx Legally Blind, Hx Macular Degeneration, Hx Vision Problem, Hx Deafness, Hx Hearing Aid, Hx Hearing Problem, Other Sensory Impairments Opthamlomology History: Reports: Hx Cataracts - blaine, Hx Contacts or Glasses - glasses Denies: Hx Eye Injury, Hx Eye Prosthesis, Hx Glaucoma, Hx Legally Blind, Hx Macular Degeneration, Hx Vision Problem, Other Sensory Impairments Neurological History: Denies: Hx Dementia, Hx Headaches, Hx Migraine, Hx Nerve Disease, Hx Seizures , Hx Spinal Cord Injury, Hx Transient Ischemic Attacks (TIA), Other Neuro Impairments/Disorders Psychiatric History: Reports: Hx Anxiety - on meds, Hx Depression - on meds, Hx Post Traumatic Stress Disorder, Hx Inpatient Treatment, Hx Community Mental Health Tx, Hx Schizophrenia, Hx Suicide Attempt, Hx of Violent Episodes Against Others, Hx Substance Abuse Denies: Hx Attention Deficit Hyperactivity Disorder, Hx Eating Disorder, Hx Panic Disorder, Hx Bipolar Disorder - Cancer History Hx Chemotherapy: No Hx Radiation Therapy: No Hx Palliative Cancer Treatment: No - Surgical History Surgical History: Yes Surgery Procedure, Year, and Place: right cataract, 2015, [place]. LEFT CATARACT Hx Anesthesia Reactions: No - Immunization History Date of Influenza Vaccine: none Infectious Disease History: No Infectious Disease History: Denies: Hx Clostridium Difficile, Hx Hepatitis, Hx Human Immunodeficiency Virus (HIV), Hx of Known/Suspected MRSA, Hx Shingles, Hx Tuberculosis, Hx Known/ Suspected VRE, Hx Known/Suspected VRSA, History Other Infectious Disease, Traveled Outside the [place] in Last 30 Days - Family History Known Family History: Positive: Cardiac Disease, Hypertension, Other - cancer mother - Social History Alcohol Use: None Alcohol Amount: patient states he has not drank in 2 mths Hx Substance Use: Yes Substance Use Type: Reports: Marijuana Substance Use Comment - Amount & Last Used: "little bit of weed here and there. " Hx Tobacco Use: Yes Smoking Status (MU): Heavy Every Day Tobacco Smoker Type: Cigarettes Amount Used/How Often: pack a day for 25 years Length of Time of Smoking/Using Tobacco: 16 years Have You Smoked in the Last Year: Yes Review of Systems Positive: Skin Diaphoresis, Other - sleep disturbance Positive: Chest Pain - mid-sternal, constant Positive: Shortness Of Breath - mild. Negative: Cough Positive: Nausea Negative: Myalgia, Edema All Other Systems Reviewed And Are Negative: Yes Physical Exam - Summary Physical Exam Summary: Constitutional: Well-developed, Well-nourished, Alert. (-) Distressed Skin: Warm, Dry HENT: Normocephalic; Atraumatic Eyes: Conjunctiva normal Neck: Musculoskeletal ROM normal neck. (-) JVD, (-) Stridor, (-) Tracheal deviation Cardio: Rhythm regular, rate normal, Heart sounds normal; Intact distal pulses; Radial pulses are 2+ and symmetric. (-) Murmur Pulmonary/Chest wall: Effort normal. (-) Respiratory distress, (-) Wheezes, (-) Rales Abd: Soft, (-) tenderness, (-) Distension, (-) Guarding, (-) Rebound Musculoskeletal: Good pulses bilaterally in radius, No calf tenderness, No venous cords, No pain with dorsiflexion of foot. (-) Edema Lymph: (-) Cervical adenopathy Neuro: Alert, Oriented x3 Psych: Mood and affect Normal Triage Information Reviewed: Yes Vital Signs On Initial Exam: Initial Vitals Temp Pulse Resp BP Pulse Ox 97.2 F 72 14 168/92 100 02/10/19 17:15 02/10/19 17:15 02/10/19 17:15 02/10/19 17:15 02/10/19 17:15 Vital Signs Reviewed: Yes Procedures - Sedation Patient Received Moderate/Deep Sedation with Procedure: No Diagnostics - Vital Signs Vital Signs Temp Pulse Resp BP Pulse Ox 02/10/19 17:15 97.2 F 72 14 168/92 100 - Laboratory Lab Results: Lab Results 02/10/19 Range/Units 19:27 WBC 12.7 H (3.5-10.8) 10^3/uL RBC 4.60 (4.18-5.48) 10^6 /uL Hgb 12.5 L (14.0-18.0) g/dL Hct 38 L (42-52) % MCV 83 (80-94) fL MCH 27 (27-31) pg MCHC 33 (31-36) g/dL RDW 15 (10-15) % Plt Count 267 (150-450) 10^3/uL MPV 8.0 (7.4-10.4) fL Neut % (Auto) 59.8 % Lymph % (Auto) 32.3 % Toombs % (Auto) 6.6 % Eos % (Auto) 0.5 % Baso % (Auto) 0.8 % Absolute Neuts (auto) 7.6 (1.5-7.7) 10^3/ul Absolute Lymphs (auto) 4.1 (1.0-4.8) 10^3/ul Absolute Monos (auto) 0.8 (0-0.8) 10^3/ul Absolute Eos (auto) 0.1 (0-0.6) 10^3/ul Absolute Basos (auto) 0.1 (0-0.2) 10^3/ul Absolute Nucleated RBC 0.0 10^3/ul Nucleated RBC % 0.1 Result Diagrams: 02/10/19 19:27 02/10/19 19:27 Lab Statement: Any lab studies that have been ordered have been reviewed, and results considered in the medical decision making process. - Radiology CXR Radiology Interpretation Completed By: ED Physician Summary of Radiographic Findings: No acute process. ED physician has reviewed and interpreted this imaging report. Pending official read. - EKG 1710 Cardiac Rate: NL - 71 bpm Summary of EKG Findings: An EKG at 1710 reveals benign early repol, 71 bpm. No ischemic changes. ED physician has reviewed and interpreted this EKG. Re-Evaluation - Re-Evaluation First Eval Re-Evaluation Time: 23:05 Comment: 2305 - Second troponin is negative. Patient is discharged to home with PCP follow up. Chest Pain Course/Dx - Course Course Of Treatment: Patient is here with chest pain that does not sound cardiac in nature. Patient had EKG ischemic changes and had an initial troponin which was negative. Patient is perc negative with a well score of 0. Patient had a negative chest x-ray. Patient also complains of chronic back tenderness have urine obtained. Patient was signed out to Dr. Sorto pending second troponin. Patient has a low heart score and does not need and inpatient stress test is negative. - Diagnoses Provider Diagnoses: Chest pain Discharge ED - Sign-Out/Discharge Documenting (check all that apply): Sign-Out Patient Signing out patient TO: Radha Sorto - pending second troponin, dispo - Discharge Plan Condition: Stable Disposition: HOME Patient Education Materials: Chest Pain (ED) Referrals: Rosa Elena Martins MD [Primary Care Provider] - 3 Days Additional Instructions: PLEASE RETURN TO ED FOR ANY NEW OR WORSENING SYMPTOMS. PLEASE FOLLOW UP WITH YOUR PRIMARY CARE PHYSICIAN WITHIN THREE DAYS. - Billing Disposition and Condition Condition: STABLE Disposition: Home - Attestation Statements Document Initiated by Shana: Yes Documenting Scribe: Raquel Calles Provider For Whom Shana is Documenting (Include Credential): Dr. Jalen Longoria MD Scribe Attestation: Raquel Summers scribed for Dr. Jalen Longoria MD on 02/12/19 at 0707. Scribe Documentation Reviewed: Yes Provider Attestation: The documentation as recorded by the Raquel varma accurately reflects the service I personally performed and the decisions made by me, Dr. Jalen Longoria MD Status of Scribcatie Document: Viewed
[2019-02-10 20:02] LABS: Albumin 4.1 g/dL (3.2-5.2); Albumin/Globulin Ratio 1.2 (1-3); Calcium 9.5 mg/dL (8.6-10.3); EGFR African American 130.2 (>60); EGFR Non-African American 107.6 (>60); Globulin 3.5 g/dL (2-4); Potassium 3.8 mmol/L (3.5-5.0); Total Bilirubin 0.2 mg/dL (0.2-1.0); Total Protein 7.6 g/dL (6.4-8.9)
[2019-02-10] MEDS ORDERED: Aspirin 81 mg CHEW TAB* 81 MG TAB.CHEW PO ONE (21:06)
[2019-02-10] MEDS ORDERED: Nitroglycerin TAB 0.4 MG* 0.4 MG TAB SL ONE (21:26)
--- NOTE | 2019-02-10 22:09 | ED ---
Progress - Progress Note Progress Note: Patient is received as a sign out from Dr. Longoria to Dr. Sorto at 2200 shift change pending second troponin. 2305 - Second troponin is negative. Patient is discharged to home with PCP follow up. Re-Evaluation - Re-Evaluation First Eval Re-Evaluation Time: 23:05 Comment: 2305 - Second troponin is negative. Patient is discharged to home with PCP follow up. Course/Dx - Diagnoses Provider Diagnoses: Chest pain Discharge ED - Sign-Out/Discharge Documenting (check all that apply): Patient Departure - discharge , Receiving Sign-Out Receiving patient FROM: Jalen Longoria - Discharge Plan Condition: Stable Disposition: HOME Patient Education Materials: Chest Pain (ED) Referrals: Rosa Elena Martins MD [Primary Care Provider] - 3 Days Additional Instructions: PLEASE RETURN TO ED FOR ANY NEW OR WORSENING SYMPTOMS. PLEASE FOLLOW UP WITH YOUR PRIMARY CARE PHYSICIAN WITHIN THREE DAYS. - Attestation Statements Document Initiated by Scribe: Yes Documenting Scribe: HALIE CRUZ Provider For Whom Scribe is Documenting (Include Credential): NEETU SORTO MD Scribe Attestation: HALIE Summers, scribed for NEETU SORTO MD on 02/10/19 at 2306. Status of Scribe Document: Ready
[2019-02-10 23:11] VITALS: BP 158/68
== END 2019-02-10 23:09 | disposition home or self-care (01) ==
LOC: ED 17:06
DX: R07.9 Chest pain, unspecified (principal); R06.02 Shortness of breath; R11.0 Nausea; I10 Essential (primary) hypertension; F41.9 Anxiety disorder, unspecified; F32.9 Major depressive disorder, single episode, unspecified; J45.909 Unspecified asthma, uncomplicated; F17.210 Nicotine dependence, cigarettes, uncomplicated; R94.31 Abnormal electrocardiogram [ECG] [EKG]
CPT/HCPCS: 36415; 71045; 80053; 84484; 85025; 85379; 85610; 93005; 99283; A9270-GY

== ENCOUNTER 2019-04-21 16:45 | Emergency (ER) | payer MEDICARE, MEDICAID ==
--- OUTSIDE RECORDS SUMMARY | 2019-04-21 16:55 | XMS REPORT ---
:1980 Author Organization [facility] Care Team Providers Name Role Phone Zaynab Hagen Primary Care Physician Unavailable Allergies, Adverse Reactions, Alerts Allergy Code CodeSystem Reaction Severity Criticality Status Start Substance Date Moderate Medications Medication Medication Medication Start Stop Route Dose Status Fill Code CodeSystem Date Date Instructions RxNorm Problems Problem Name Code CodeSystem Alternate Alternate Start End Status Narrative Code CodeSystem Date Date Schizoaffective 25463288 SNOMED-CT Active disorder, 05-15 Depressive type Schizoaffective 42652941 SNOMED-CT Active disorder, 05-15 Depressive type Relevant diagnostic tests/laboratory data Narrative No Information Procedures Procedure Code CodeSystem Target Date of Status Service Device Device Device Name Site Procedure Delivery Code Name UID Location Psychotherap [id number] SNOMED-CT () 2019-01-13 complete Mental y, 44 04 d Health- minutes with [facility] patient [address], [id number] [id number] Psychotherap [id number] SNOMED-CT () 2018-08-17 complete Mental y, 45 04 d Health- minutes with [facility] patient [address], [id number] [id number] Office or [id number] SNOMED-CT () 2018-11-09 complete Mental other 7 d Health- outpatient [facility] visit for [address], [facility], of an [facility] established [id number] patient, [phone] which requires at least 2 of these 3 quinteros components: An expanded problem focused history; An expanded problem focused examination; Medical decision making of low SNOMED-CT () 2018-06-17 complete Mental d Health- [address], [id number] [phone] SNOMED-CT () 2018-09-04 complete Mental d [address], [id number] [phone] SNOMED-CT () 2018-12-10 complete Mental d [address], [id number] [phone] SNOMED-CT () 2018-05-26 complete Mental d [facility] [address], [place], [phone] Encounters/Encounter Diagnoses Encounter Name Encounter Diagnosis Diagnosis Name Diagnosis Date of Service Code Code CodeSystem Diagnosis Delivery Location Psychotherapy - 24102 [id number] Schizoaffective SNOMED-CT 2019-01-13 Behavioral Individual 30 disorder, Health min Depressive type Clinic [address], [place], [phone] Vital Signs No Information Social History Element Description Description Start End Code CodeSystem AdditionalInfo Date Date SexAssignedAtBirth Male 1981-0 M AdministrativeGender 03-18 Hospital Discharge Instructions Reason For Referral Medical Equipment FDA Assessments
--- OUTSIDE RECORDS SUMMARY | 2019-04-21 16:55 | XMS REPORT | Continuity of Care Document ---
:1980 External Reference #:[id number] Author Name Charline Omalley MD (transmitted by agent of provider Munira Childs) Address [address] [place] [address] Care Team Providers Name Role Phone Claude Agarwal MD [facility] - Care Team Information Real Estate Financial Analyst Cardiovascular Disease Farooq Rehman MD - Dermatology Care Team Information Real Estate Financial Analyst Sunny Crain MD - Hematology Care Team Information Real Estate Financial Analyst Darshan Hooper MD - Entry Level Assistant Manager Care Team Information Real Estate Financial Analyst [phone] Rosa Elena Martins M.D. - Family Medicine Care Team Information Real Estate Financial Analyst [phone] Problems Active Problems Provider Date Mild recurrent major depression Martín Ferreira M.D. Onset: 12/21/2015 Obstructive sleep apnea syndrome Martín Ferreira M.D. Onset: 12/21/2015 Disturbance in sleep behavior Liana Zhu MD Onset: 01/15/2016 Tobacco user Kathy Cruz DNP, RN, Onset: 02/14/2016 [facility]- Hypersomnia Kathy Cruz DNP, RN, Onset: 02/14/2016 [facility]- Obesity Martín Ferreira M.D. Onset: 03/05/2016 Essential hypertension Margarito Huertas M.D.,[facility] Onset: 08/05/2016 Type 2 diabetes mellitus Martín Ferreira M.D. Onset: 12/10/2016 Mixed hyperlipidemia Martín Ferreira M.D. Onset: 12/20/2016 Liver function tests abnormal Martín Ferreira M.D. Onset: 12/20/2016 Disorder of skin and/or subcutaneous Martín Ferreira M.D. Onset: 08/04/2017 tissue Anemia Martín Ferreira M.D. Onset: 08/19/2017 Current tear of medial cartilage Adonis Hayes M.D. Onset: 11/24/2018 AND/OR meniscus of knee Callosity on toe Martín Ferreira M.D. Onset: 12/24/2017 Social History Type Date Description Comments Sex Unknown Tobacco Use Start: Unknown currently smokes 1/2 trying to cut down Pack Daily on smoking. Smoking Status Reviewed: 03/16/19 currently smokes 1/2 trying to cut down Pack Daily on smoking. ETOH Use 08/05/2016 Denies alcohol use sober since 2013 ETOH Use Has consumed alcohol in heavy alcohol in the past the past, rehab a couple of times Tobacco Use Start: Unknown Patient is a current 1ppd X 21 years smoker, smokes every day Recreational Drug Use Denies Drug Use Exercise Type/Frequency Does not exercise Allergies, Adverse Reactions, Alerts Active Allergies Reaction Severity Comments Date NKDA 12/21/2015 Milk-related Compounds 03/25/2016 Medications Active Medications SIG Qnty Indications Ordering Date Provider Aspirin 81 Low Dose 1 by mouth every 90units R07.9 Charline 02/12/2019 day MD Shahram 81mg Chewtabs Blood Pressure use 2x/week or as 1units I10 Rosa Elena Martins MD 11/18/2018 Monitor needed to check Digital/Auto-Inflat blood pressure at ion home Misc Losartan Potassium 1 by mouth every 30tabs I10 Rosa Elena Martins MD 09/09/2018 day 25mg Tablets Lancets check fingerstick 100units Rosa Elena Martins MD 02/20/2018 30G Misc glucose once a day True Metrix Go use daily as 1units E11.9 Rosa Elena Martins MD 12/19/2017 Blood Glucose Meter directed last visit: 11/18/18 w/Device Kit True Metrix Blood test fasting blood 100units Rosa Elena Martins MD 12/19/2017 Glucosetest Strips sugar daily. Strips Glipizide take 1 tablet after 30tabs E11.9 Rosa Elena Martins MD 04/22/2017 5mg breakdaily Tablets Cane/Adjustable/Alu use while 1units M54.5 Mobile 09/17/2016 minum/Round Handle ambulating Serafin Ferreira 5/8" 5/8" Misc Cpap Unknown Device History Medications Sphygmomanometer take home bp 1unsee Rosa Elena Martins MD 11/18/2018 - Aneroid/Large Adult measurement once 11/18/2018 [facility] [place] if consistently over 140/90 Medications Administered in Office Medication SIG Qnty Indications Ordering Provider Date PPD Charline Omalley MD 03/16/2019 Injection PPD Nurse Visit A 03/08/2019 Injection Triamcinolone (Kenalog) Adonis Hayes M.D. 11/24/2018 Injection PPD Nurse Visit [place] 01/24/2017 Injection Technetium TC 99M Victor M Ross DO [facility] 05/15/2016 Tetrofosmin, Per Unit Dose Up To 40 Millicuries Injection Immunizations CPT Code Status Date Vaccine Lot # [id number] Given 03/05/2016 Pneumonia Vaccine [id number] Vital Signs Date Vital Result Comment 03/16/2019 8:49am Height 70 inches 5'10" Weight 257.00 lb Heart Rate 67 /min BP Systolic Sitting 123 mmHg BP Diastolic Sitting 83 mmHg O2 % BldC Oximetry 99 % BMI (Body Mass Index) 36.9 kg/m2 03/03/2019 9:47am Height 70 inches 5'10" Weight 251.00 lb with shoes Heart Rate 76 /min BP Systolic Sitting 140 mmHg Rue lg cuff BP Diastolic Sitting 98 mmHg Rue lg cuff BP Systolic Standing 130 mmHg Rue lg cuff BP Diastolic Standing 90 mmHg Rue lg cuff Respiratory Rate 16 /min BMI (Body Mass Index) 36.0 kg/m2 Results Test Acquired Facility Test Result H/L Range Note Date Laboratory 03/01/2019 [facility] D Dimer < 200 Normal Less Than 1 test finding [address] Quantitative ng/mL [address] [place] [address] [phone] Laboratory 02/12/2019 [facility] In House Hemoglobin A1c 6.2 5-7 test finding Order 02/12/2019 [facility] In-House EKG <pending> Laboratory 02/10/2019 [facility] Troponin-I (TnI) 0.00 ng/mL <0.03 2 test finding [address] [place] [address] [phone] CBC Auto Diff 02/10/2019 [facility] White Blood 12.7 High 3.5- 10.[address] Count 10^3/[place] [address] [phone] Red Blood Count 4.60 10^6/uL Normal 4.18-5.48 Hemoglobin 12.5 g/dL Low 14.0-18.0 Hematocrit 38 % Low 42-52 Mean Corpuscular Volume 83 fL Normal 80-94 Mean Corpuscular Hemoglobin 27 pg Normal 27-31 Mean Corpuscular HGB Conc 33 g/dL Normal 31-36 Red Cell Distribution Width 15 % Normal 10-15 Platelet Count 267 10^3/uL Normal 150-450 Mean Platelet Volume 8.0 fL Normal 7.4-10.4 Abs Neutrophils 7.6 10^3/uL Normal 1.5-7.7 Abs Lymphocytes 4.1 10^3/uL Normal 1.0-4.8 Abs Monocytes 0.8 10^3/uL Normal 0-0.8 Abs Eosinophils 0.1 10^3/uL Normal 0-0.6 Abs Basophils 0.1 10^3/uL Normal 0-0.2 Abs Nucleated RBC 0.0 10^3/uL Granulocyte % 59.8 % Lymphocyte % 32.3 % Monocyte % 6.6 % Eosinophil % 0.5 % Basophil % 0.8 % Nucleated Red Blood Cells % 0.1 Comp Metabolic 02/10/2019 [facility] Sodium 136 mmol/L Normal 135-145 Panel [address] [place] [address] [phone] Potassium 3.8 mmol/L Normal 3.5-5.0 Chloride 107 mmol/L Normal 101-111 Co2 Carbon Dioxide 24 mmol/L Normal 22-32 Anion Gap 5 mmol/L Normal 2-11 Glucose 87 mg/dL Normal 70-100 Blood Urea Nitrogen 12 mg/dL Normal 6-24 Creatinine 0.80 mg/dL Normal 0.67-1.17 BUN/Creatinine Ratio 15.0 Normal 8-20 Calcium 9.5 mg/dL Normal 8.6-10.3 Total Protein 7.6 g/dL Normal 6.4-8.9 Albumin 4.1 g/dL Normal 3.2-5.2 Globulin 3.5 g/dL Normal 2-4 Albumin/Globulin Ratio 1.2 Normal 1-3 Total Bilirubin 0.20 mg/dL Normal 0.2-1.0 Alkaline Phosphatase 109 U/L High 34-104 Alt 67 U/L High 7-52 Ast 30 U/L Normal 13-39 Egfr Non- 107.6 >60 Egfr 130.2 >60 3 Laboratory 02/10/2019 [facility] Troponin-I (TnI) 0.00 <0.03 [address] ng/[place] [address] [phone] Inr/Protime 02/10/2019 [facility] Inr 1.17 High 0.82-1.[address] [place] [address] [phone] Laboratory 02/10/2019 [facility] D Dimer < 200 Normal Less [address] Quantitative ng/mL Than [address] [place] [address] [phone] Lipid Profile 11/18/2018 [facility] Triglycerides 70 mg/dL 7 (Trig/Chol/HDL [address] ) [place] [address] [phone] Cholesterol 178 mg/dL 8 HDL Cholesterol 43.5 mg/dL 9 LDL Cholesterol 121 mg/dL 10 Comp Metabolic 11/18/2018 [facility] Sodium 138 mmol/L Normal 135-[address] [place] [address] [phone] Potassium 4.7 mmol/L Normal 3.5-5.0 Chloride 103 mmol/L Normal 101-111 Co2 Carbon Dioxide 31 mmol/L Normal 22-32 Anion Gap 4 mmol/L Normal 2-11 Glucose 107 mg/dL High 70-100 Blood Urea Nitrogen 14 mg/dL Normal 6-24 Creatinine 0.77 mg/dL Normal 0.67-1.17 BUN/Creatinine Ratio 18.2 Normal 8-20 Calcium 9.9 mg/dL Normal 8.6-10.3 Total Protein 7.6 g/dL Normal 6.4-8.9 Albumin 4.3 g/dL Normal 3.2-5.2 Globulin 3.3 g/dL Normal 2-4 Albumin/Globulin Ratio 1.3 Normal 1-3 Total Bilirubin 0.30 mg/dL Normal 0.2-1.0 Alkaline Phosphatase 96 U/L Normal 34-104 Alt 25 U/L Normal 7-52 Ast 19 U/L Normal 13-39 Egfr Non- 112.5 >60 Egfr 136.1 >60 11 Urine Microalbumin 11/18/2018 [facility] Ur Microalbumin 17.8 mg /L Random [address] (mg/L) [place] [address] [phone] Urine Creatinine 201.30 mg/dL Urine Microalbumin/Creatinine 8.8 Normal <31 Laboratory test finding 11/18/2018 [facility] In House Hemoglobin A1c 6.1 5-7 1 Please note: The following may produce a false positive D Dimer test: - Rheumatoid factor greater than 60 IU/ml - Plasma hemoglobin greater than 0.05 gm/dl - Bilirubin greater than 50 mg/dl - Lipids greater than 1000 mg/dl - FDP greater than 20 ug/ml 2 Troponin-I testing on Plasma Separator Tubes (PST) has a known false positive rate of 0.20-0.40%. All positive troponins reflex immediately to secondary confirmatory testing. Using the [employer] DxI 800 Access Immunoassay systems, the 99th percentile upper reference limit was demonstrated to be < 0.03 ng/mL. 3 Because ethnic data is not always [...] 5 Kidney failure <15 (or dialysis) 4 Troponin-I testing on Plasma Separator Tubes (PST) has a known false positive rate of 0.20-0.40%. All positive troponins reflex immediately to secondary confirmatory testing. Using the [employer] DxI 800 Access Immunoassay systems, the 99th percentile upper reference limit was demonstrated to be < 0.03 ng/mL. 5 Standard intensity warfarin therapeutic range: 2.0-3.0 High intensity warfarin therapeutic range: 2.5-3.5 6 Please note: The following may produce a false positive D Dimer test: - Rheumatoid factor greater than 60 IU/ml - Plasma hemoglobin greater than 0.05 gm/dl - Bilirubin greater than 50 mg/dl - Lipids greater than 1000 mg/dl - FDP greater than 20 ug/ml 7 Desirable: <150 Borderline High: 150-199 High: 200-499 Very High: >500 8 Desirable: <200 Borderline High: 200-239 High: >239 9 Low: <40 Desirable: 40-60 High: >60 10 Desirable: <100 Near Optimal: 100-129 Borderline High: 130-159 High: 160-189 Very High: >189 11 Because ethnic data is not always readily [...] Kidney failure <15 (or dialysis) Procedures Date Code Description Status 03/03/2019 43283 EKG Tracing & Interpretation Completed 02/12/2019 65503 EKG Tracing & Interpretation Completed 12/16/2018 49735 Polysomnography Sleep Staging 4+ Parameters W/Cpap Completed 07/25/2016 [id number] Diabetic Retinal Eye Exam Completed Medical Devices Description No Information Available Encounters Type Date Location Provider Dx Diagnosis Office Visit 03/03/2019 [facility] Victor M Ross, R07.9 Chest pain, 11:20a [facility] DO FACC unspecified E11.9 Type 2 diabetes mellitus without complications I10 Essential (primary) hypertension G47.33 Obstructive sleep apnea (adult) (pediatric) E66.9 Obesity, unspecified Z72.0 Tobacco use E78.5 Hyperlipidemia, unspecified Office Visit 02/12/2019 10:00a [facility] Internal Charline R07.9 Chest pain, Jordan Omalley MD unspecified Ccmob E11.9 Type 2 diabetes mellitus without complications I10 Essential (primary) hypertension G47.33 Obstructive sleep apnea (adult) (pediatric) E66.9 Obesity, unspecified F17.210 Nicotine dependence, cigarettes, uncomplicated M25.561 Pain in right knee Office Visit 01/05/2019 11:15a [facility] Mitchel F M25.561 Pain in at Radha Parnell MD right knee M17.11 Unilateral primary osteoarthritis, right knee Office Visit 12/30/2018 [facility] G47.33 Obstructive sleep 9:00a [facility] Car[facility] apnea (adult) [facility] (pediatric) F17.210 Nicotine dependence, cigarettes, uncomplicated E66.9 Obesity, unspecified G47.10 Hypersomnia, unspecified Z68.34 Body mass index (BMI) 34.0-34.9, adult Office Visit 12/17/2018 Carey Lamb S83.241D Oth tear of medial 9:45a Orthopedics at [facility] meniscus, current [place] injury, r knee, subs Office Visit 11/24/2018 Carey Lamb S83.241A Oth tear of medial 10:00a Orthopedics at [facility] meniscus, current [place] injury, r knee, init Office Visit 11/18/2018 [facility] Internal Rosa Elena Martins, E11.9 Type 2 diabetes 10:40a Medicine - Ccmob MD mellitus without complications I10 Essential (primary) hypertension M25.461 Effusion, right knee F17.210 Nicotine dependence, cigarettes, uncomplicated Assessments Date Code Description Provider 03/16/2019 Z11.1 Encounter for screening for respiratory Charline Omalley MD tuberculosis 03/16/2019 R07.9 Chest pain, unspecified Charline Omalley MD 03/16/2019 E11.9 Type 2 diabetes mellitus without Charline Omalley MD complications 03/16/2019 I10 Essential (primary) hypertension Charline Omalley MD 03/16/2019 G47.33 Obstructive sleep apnea (adult) Charline Omalley MD (pediatric) 03/16/2019 E66.9 Obesity, unspecified Charline Omalley MD 03/16/2019 F17.210 Nicotine dependence, cigarettes, Charline Omalley MD uncomplicated 03/08/2019 Z11.1 Encounter for screening for respiratory Nurse Visit A tuberculosis 03/03/2019 R07.9 Chest pain, unspecified Victor M Messer Ross, DO FAC 03/03/2019 E11.9 Type 2 diabetes mellitus without Victor M SDebbie Ross, DO FAC complications 03/03/2019 I10 Essential (primary) hypertension Victor M Ross, DO FACC 03/03/2019 G47.33 Obstructive sleep apnea (adult) Victor M SDebbie Ross, DO [facility] (pediatric) 03/03/2019 E66.9 Obesity, unspecified Victor M SDebbie Ross, DO FAC 03/03/2019 Z72.0 Tobacco use Victor M Ross, DO [facility] 03/03/2019 E78.5 Hyperlipidemia, unspecified Victor M SDebbie Ross, DO FAC 02/12/2019 R07.9 Chest pain, unspecified Charline Omalley MD 02/12/2019 E11.9 Type 2 diabetes mellitus without Charline Omalley MD complications 02/12/2019 I10 Essential (primary) hypertension Charline Omalley MD 02/12/2019 G47.33 Obstructive sleep apnea (adult) Charline Omalley MD (pediatric) 02/12/2019 E66.9 Obesity, unspecified Charline Omalley MD 02/12/2019 F17.210 Nicotine dependence, cigarettes, Charline Omalley MD uncomplicated 02/12/2019 M25.561 Pain in right knee Charline Omalley MD 01/05/2019 M25.561 Pain in right knee Mitchel Parnell MD 01/05/2019 M17.11 Unilateral primary osteoarthritis, right Mitchel Parnell MD knee 12/30/2018 G47.33 Obstructive sleep apnea (adult) Mai Carvalho NP (pediatric) 12/30/2018 F17.210 Nicotine dependence, cigarettes, Mai Carvalho NP uncomplicated 12/30/2018 E66.9 Obesity, unspecified Mai Carvalho NP 12/30/2018 G47.10 Hypersomnia, unspecified Mai Carvalho NP 12/30/2018 Z68.34 Body mass index (BMI) 34.0-34.9, adult Mai Carvalho NP 12/18/2018 I10 Essential (primary) hypertension Nurse Visit A 12/17/2018 S83.241D Other tear of medial meniscus, current Adonis Hayes M.D. injury, right knee, subsequent encounter 12/16/2018 G47.33 Obstructive sleep apnea (adult) Liana Zhu MD (pediatric) 11/24/2018 S83.241A Other tear of medial meniscus, current Adonis Hayes M.D. injury, right knee, initial encounter 11/18/2018 E11.9 Type 2 diabetes mellitus without Rosa Elena Martins MD complications 11/18/2018 I10 Essential (primary) hypertension Rosa Elena Martins MD 11/18/2018 M25.461 Effusion, right knee Rosa Elena Martins MD 11/18/2018 F17.210 Nicotine dependence, cigarettes, Rosa Elena Martins MD uncomplicated Plan of Treatment Future Appointment(s):2019 9:20 am - Nurse Visit A at [facility] Internal Medicine - [facility]03/30/2019 10:15 am - Victor M Ross DO FACC at [facility]03/24/2019 1:00 pm - Mai Carvalho NP at [facility]06/28/2019 2:00 pm - Rosa Elena Martins MD at [facility] Internal Medicine - [facility]03/16/2019 - Charline Omalley MDZ11.1 Encounter for screening for respiratory tuberculosisComments:Please return to the office between 48-72 hrs to have the PPD read.This will be on 03/18/19Follow up:Please make an appt for annual plnzvO55.9 Chest pain, anumjrteoshB63.9 Type 2 diabetes mellitus without complicationsReferral:Darshan Hooper MD, PodiatrAndrew Taveras MD, [id number] Essential (primary) hypertensionComments:Your blood pressure is well controlled. Continue to take medications as prescribed. Continue to monitor salt in the dietG47.33 Obstructive sleep apnea (adult) (pediatric)E66.9 Obesity, crtmkojmjbrT13.210 Nicotine dependence, cigarettes, uncomplicated Functional Status Description No Information Available Mental Status Description No Information Available Referrals Refer to Reason for Referral Status Appt Date Darshan Hooper MD Created [address] [place] [address] [phone] Andrew Burnett MD Created [address] [place] [address] [phone] Claude Agarwal MD FAC Sent 03/03/2019 [address] [place] [address] [phone] Adonis Hayes MD painful swollen right knee, seen in ER last Scheduled month [address] [facility] [place] [address] [place] [address] [phone]
--- OUTSIDE RECORDS SUMMARY | 2019-04-21 16:55 | XMS REPORT | Continuity of Care Document ---
:1980 External Reference #:[id number] Author Name Victor M Ross DO FAC (transmitted by agent of provider Annemarie Mcconnell) Address [address] [place] [address] Care Team Providers Name Role Phone Claude Agarwal MD FAC - Care Team Information [employer] Seating Press Operator Cardiovascular Disease Farooq Rehman MD - Dermatology Care Team Information An[employer] Seating Press Operator [phone] Sunny Crain MD - Hematology Care Team Information [employer] Seating Press Operator Darshan Hooper MD - Master Chef Care Team Information Anvil Seating Press Operator Rosa Elena Martins M.D. - Family Medicine Care Team Information An[employer] Seating Press Operator Problems Active Problems Provider Date Mild recurrent major depression Martín Ferreira M.D. Onset: 12/21/2015 Obstructive sleep apnea syndrome Martín Ferreira M.D. Onset: 12/21/2015 Disturbance in sleep behavior Liana Zhu MD Onset: 01/15/2016 Tobacco user Kathy Cruz DNP, RN, Onset: 02/14/2016 [facility]- Hypersomnia Kathy Cruz DNP, RN, Onset: 02/14/2016 [facility]- Obesity Martín Ferreira M.D. Onset: 03/05/2016 Essential hypertension Margarito Huertas M.D.,[facility] Onset: 08/05/2016 Type 2 diabetes mellitus [...] Pack Daily on smoking. Smoking Status Reviewed: 03/03/19 currently smokes 1/2 trying to cut down [...] breakdaily Tablets Cane/Adjustable/Alu use while 1units M54.5 Martín 09/17/2016 minum/Round Handle ambulating Serafin Ferreira 5/8" 5/8" Misc Cpap Unknown Device History Medications Sphygmomanometer take home bp 1units Rosa Elena Martins MD 11/18/2018 - Aneroid/Large Adult measurement once 11/18/2018 [facility] weekly, call office if consistently over 140/90 Medications Administered in Office Medication SIG Qnty Indications Ordering Provider Date Triamcinolone (Kenalog) Adonis [place] M.D. 11/24/2018 Injection PPD Nurse Visit Rashid 01/24/2017 Injection Technetium TC 99M Victor M Ross DO [facility] 05/15/2016 Tetrofosmin, Per Unit Dose Up To 40 Millicuries Injection Immunizations CPT Code Status Date Vaccine Lot # [id number] Given 03/05/2016 Pneumonia Vaccine [id number] Vital Signs Date Vital Result Comment 03/03/2019 9:47am Height 70 inches 5'10" Weight 251.00 lb with shoes Heart Rate 76 /min BP Systolic Sitting 140 mmHg Rue lg cuff BP Diastolic Sitting 98 mmHg Rue lg cuff BP Systolic Standing 130 mmHg Rue lg cuff BP Diastolic Standing 90 mmHg Rue lg cuff Respiratory Rate 16 /min BMI (Body Mass Index) 36.0 kg/m2 02/12/2019 9:34am Height 70 inches 5'10" Weight 240.50 lb Heart Rate 65 /min BP Systolic 146 mmHg BP Diastolic 110 mmHg Body Temperature 98.7 F O2 % BldC Oximetry 99 % BMI (Body Mass Index) 34.5 kg/m2 Results Test Acquired Facility Test Result H/L Range Note Date Laboratory 03/01/2019 [facility] D Dimer < 200 Normal Less Than 1 test finding [address] Quantitative ng/mL [address] [place] [address] [phone] Laboratory 02/12/2019 [facility] Hemoglobin A1c 6.2 5-7 test finding Order 02/12/2019 [facility] EKG <pending> Laboratory 02/10/2019 [facility] Troponin-I (TnI) 0.00 ng/mL <0.03 2 test finding [address] [place] [address] [phone] CBC Auto Diff 02/10/2019 [facility] White Blood 12.7 High 3.5- 10.[address] Count 10^3/[place] [address] [phone] Red Blood Count 4.60 10^6/uL Normal 4.18-5.48 [...] Blood Cells % 0.1 Comp Metabolic 02/10/2019 [facility] Sodium 136 mmol/L Normal 135-[address] [place] [address] [phone] Potassium 3.8 mmol/L Normal 3.5-5.0 Chloride 107 [...] >60 Egfr 130.2 >60 3 Laboratory 02/10/2019 [facility] Troponin-I (TnI) 0.00 <0.03 4 test finding [address] ng/mL [place], [place] [address] [phone] Inr/Protime 02/10/2019 [facility] Inr 1.17 High 0.82-1.[address] [place] [address] [phone] Laboratory 02/10/2019 [facility] D Dimer < 200 Normal Less [address] Quantitative ng/mL Than [address] [place] [address] [phone] Lipid Profile 11/18/2018 [facility] Triglycerides 70 mg/dL 7 (Trig/Chol/HDL [address] ) [place] [address] [phone] Cholesterol 178 mg/dL 8 HDL Cholesterol 43.5 mg/dL 9 LDL Cholesterol 121 mg/dL 10 Comp Metabolic 11/18/2018 [facility] Sodium 138 mmol/L Normal 135-[address] [place] [address] [phone] Potassium 4.7 mmol/L Normal 3.5-5.0 Chloride 103 [...] Egfr 136.1 >60 11 Urine Microalbumin 11/18/2018 [facility] Ur Microalbumin 17.8 mg /L Random [address] (mg/L) [place] [address] [phone] Urine Creatinine 201.30 mg/dL Urine Microalbumin/Creatinine 8.8 Normal <31 Laboratory test finding 11/18/2018 [facility] In House Hemoglobin A1c 6.1 5-7 1 [...] immediately to secondary confirmatory testing. Using the [employer] DxI 800 Access Immunoassay systems, the 99th [...] immediately to secondary confirmatory testing. Using the [employer] DxI 800 Access Immunoassay systems, the 99th [...] dialysis) Procedures Date Code Description Status 03/03/2019 13422 EKG Tracing & Interpretation Completed 02/12/2019 06490 EKG Tracing & Interpretation Completed 12/16/2018 40237 Polysomnography Sleep Staging 4+ Parameters W/Cpap Completed 07/25/2016 [id number] Diabetic Retinal Eye Exam Completed Medical Devices Description No Information Available Encounters Type Date Location Provider Dx Diagnosis Office Visit 02/12/2019 [facility] Charline Omalley, R07.9 Chest pain, 10:00a [facility] - [facility] unspecified E11.9 Type 2 diabetes mellitus without complications I10 Essential (primary) hypertension G47.33 Obstructive sleep apnea (adult) (pediatric) E66.9 Obesity, unspecified F17.210 Nicotine dependence, cigarettes, uncomplicated M25.561 Pain in right knee Office Visit 01/05/2019 11:15a [facility] Mitchel F M25.561 Pain in at Radha Parnell MD right knee M17.11 Unilateral primary osteoarthritis, right knee Office Visit 12/30/2018 [facility] G47.33 Obstructive sleep 9:00a [facility] apnea (adult) [facility] (pediatric) F17.210 Nicotine dependence, cigarettes, uncomplicated E66.9 Obesity, unspecified G47.10 Hypersomnia, unspecified Z68.34 Body mass index (BMI) 34.0-34.9, adult Office Visit 12/17/2018 Carey Lamb S83.241D Oth tear of medial 9:45a [facility] at [facility] [place] meniscus, current [place] injury, r knee, subs Office Visit 11/24/2018 Carey Lamb S83.241A Oth tear of medial 10:00a [facility] at [facility] [place] meniscus, current [place] injury, r knee, init Office Visit 11/18/2018 [facility] Internal Rosa Elena Martins, E11.9 Type 2 diabetes 10:40a Medicine - [facility] MD mellitus without complications I10 Essential (primary) hypertension M25.461 Effusion, right knee F17.210 Nicotine dependence, cigarettes, uncomplicated Office Visit 09/09/2018 2:00p [facility] Internal Rosa Elena Martins MD I10 Essential (primary) Medicine - [facility] hypertension E11.9 Type 2 diabetes mellitus without complications Assessments Date Code Description Provider 03/03/2019 R07.9 Chest pain, unspecified Victor M Ross, DO FACC 03/03/2019 E11.9 Type 2 diabetes mellitus without Victor M Ross, DO FACC complications 03/03/2019 I10 Essential (primary) hypertension Victor M Ross, DO FACC 03/03/2019 G47.33 Obstructive sleep apnea (adult) Victor M Ross, DO FACC (pediatric) 03/03/2019 E66.9 Obesity, unspecified Victor M Ross, DO FACC 03/03/2019 Z72.0 Tobacco use Victor M Ross, DO FACC 02/12/2019 R07.9 Chest pain, unspecified Charline Omalley [...] dependence, cigarettes, Rosa Elena Martins MD uncomplicated 09/09/2018 I10 Essential (primary) hypertension Rosa Elena Martins MD 09/09/2018 E11.9 Type 2 diabetes mellitus without Rosa Elena Martins MD complications Plan of Treatment Future Appointment(s):03/30/2019 10:15 am - Victor M Ross DO FACC at [facility]03/24/2019 1:00 pm - Mai Carvalho NP at [facility]03/16/2019 9:30 am - Charline Omalley MD at [facility] Internal Medicine - [facility]06/28/2019 2:00 pm - Rosa Elena Martins MD at [facility] Internal Medicine - [facility]03/03/2019 - Victor M Ross DO FACCR07.9 Chest pain, unspecifiedNew Orders:Stress Test, Exercise Nuclear, Scheduled: 03/30/19Follow up:Please arrange a stress first, reduced dose protocol nuclear stress test f/u prnE11.9 Type 2 diabetes mellitus without [id number] Essential (primary) gpqwryblteulA75.33 Obstructive sleep apnea (adult) (pediatric)E66.9 Obesity, lnlegnziuooN86.0 Tobacco use Functional Status Description No Information Available Mental Status Description No Information Available Referrals Refer to Reason for Referral Status Appt Date Claude Agarwal MD FACC Sent 03/03/2019 [address] [facility] [address] [place] [address] [phone] Adonis [place] MD painful swollen right knee, seen in ER last Scheduled month [address] [facility] [place] [address] [place] [address] [phone]
--- OUTSIDE RECORDS SUMMARY | 2019-04-21 16:55 | XMS REPORT | Continuity of Care Document ---
:1980 External Reference #:[id number] Author Name Mai Carvalho NP (transmitted by agent of provider Joi Evans) Address [address], [address] [place] [address] Care Team Providers Name Role Phone Claude Agarwal MD [facility] - Care Team Information Marketing Traffic Manager Cardiovascular Disease Farooq Rehman MD - Dermatology Care Team Information Marketing Traffic Manager Sunny Crain MD - Hematology Care Team Information Marketing Traffic Manager Darshan Hooper MD - Electrocardiograph Operator Care Team Information Marketing Traffic Manager Rosa Elena Martins M.D. - Family Medicine Care Team Information Marketing Traffic Manager Problems Active Problems Provider Date Mild recurrent major depression Martín Ferreira M.D. Onset: 12/21/2015 Obstructive sleep apnea syndrome Martín Ferreira M.D. Onset: 12/21/2015 Disturbance in sleep behavior Liana Zhu MD Onset: 01/15/2016 Tobacco user Kathy Cruz DNP, RN, Onset: 02/14/2016 [facility]- Hypersomnia Kathy Cruz DNP, RN, Onset: 02/14/2016 [facility]- Obesity Martín Ferreira M.D. Onset: 03/05/2016 Essential hypertension Margarito Huertas M.D.,[facility] Onset: 08/05/2016 Type 2 diabetes mellitus [...] Pack Daily on smoking. Smoking Status Reviewed: 03/24/19 currently smokes 1/2 trying to cut down [...] breakdaily Tablets Cane/Adjustable/Alu use while 1units M54.5 [place] 09/17/2016 minum/Round Handle ambulating Serafin Ferreira 5/8" 5/8" Misc Cpap Unknown Device History Medications Sphygmomanometer take home bp 1units Rosa Elena Martins MD 11/18/2018 - Aneroid/Large Adult measurement once 11/18/2018 [facility] weekly, call office if consistently over 140/90 Medications Administered in Office Medication SIG Qnty Indications Ordering Provider Date PPD Charline Omalley MD 03/16/2019 Injection PPD Nurse Visit A 03/08/2019 Injection Triamcinolone (Kenalog) Adonis [place] M.D. 11/24/2018 Injection PPD Nurse Visit Rashid 01/24/2017 Injection Technetium TC 99M Victor M Ross DO [facility] 05/15/2016 Tetrofosmin, Per Unit Dose Up To 40 Millicuries Injection Immunizations CPT Code Status Date Vaccine Lot # [id number] Given 03/05/2016 Pneumonia Vaccine [id number] Vital Signs Date Vital Result Comment 03/24/2019 12:46pm Height 70 inches 5'10" Weight 258.00 lb Heart Rate 79 /min BP Systolic 122 mmHg BP Diastolic 80 mmHg O2 % BldC Oximetry 98 % BMI (Body Mass Index) 37.0 kg/m2 03/16/2019 8:49am Height 70 inches 5'10" Weight 257.00 lb Heart Rate 67 /min BP Systolic Sitting 123 mmHg BP Diastolic Sitting 83 mmHg O2 % BldC Oximetry 99 % BMI (Body Mass Index) 36.9 kg/m2 Results Test Acquired Facility Test Result H/L Range Note Date Laboratory 03/01/2019 [facility] D Dimer < 200 Normal Less Than 1 test finding [address] Quantitative ng/mL [address] [place] [address] [phone] Laboratory 02/12/2019 [facility] Hemoglobin A1c 6.2 5-7 test finding Order 02/12/2019 [facility] EKG <pending> Laboratory 02/10/2019 [facility] Troponin-I (TnI) 0.00 ng/mL <0.03 2 test finding [address] [place] [address] [phone] CBC Auto Diff 02/10/2019 [facility] White Blood 12.7 High 3.5- 10.[address] Count 10^3/[place] [address] [phone] Red Blood Count 4.60 10^6/uL Normal 4.18-5.48 [...] Blood Cells % 0.1 Comp Metabolic 02/10/2019 [facility] Sodium 136 mmol/L Normal 135-[address] [place] [address] [phone] Potassium 3.8 mmol/L Normal 3.5-5.0 Chloride 107 [...] >60 Egfr 130.2 >60 3 Laboratory 02/10/2019 [facility] Troponin-I (TnI) 0.00 <0.03 4 test finding [address] ng/mL [place], [place] [address] [phone] Inr/Protime 02/10/2019 [facility] Inr 1.17 High 0.82-1.[address] [place], [place] [address] [phone] Laboratory 02/10/2019 [facility] D Dimer < 200 Normal Less 6 test finding [address] Quantitative ng/mL Than [address] [place] [address] [phone] Lipid Profile 11/18/2018 [facility] Triglycerides 70 mg/dL 7 (Trig/Chol/HDL [address] ) [place] [address] [phone] Cholesterol 178 mg/dL 8 HDL Cholesterol 43.5 mg/dL 9 LDL Cholesterol 121 mg/dL 10 Comp Metabolic 11/18/2018 [facility] Sodium 138 mmol/L Normal 135-[address] [place] [address] [phone] Potassium 4.7 mmol/L Normal 3.5-5.0 Chloride 103 [...] Egfr 136.1 >60 11 Urine Microalbumin 11/18/2018 [facility] Ur Microalbumin 17.8 mg /L Random [address] (mg/L) [place] [address] [phone] Urine Creatinine 201.30 mg/dL Urine Microalbumin/Creatinine 8.8 Normal <31 Laboratory test finding 11/18/2018 [facility] In House Hemoglobin A1c 6.1 5-7 1 [...] immediately to secondary confirmatory testing. Using the [employer] DxI 800 Access Immunoassay systems, the 99th [...] immediately to secondary confirmatory testing. Using the [employer] DxI 800 Access Immunoassay systems, the 99th [...] dialysis) Procedures Date Code Description Status 03/03/2019 04500 EKG Tracing & Interpretation Completed 02/12/2019 08184 EKG Tracing & Interpretation Completed 12/16/2018 09548 Polysomnography Sleep Staging 4+ Parameters W/Cpap Completed 07/25/2016 [id number] Diabetic Retinal Eye Exam Completed Medical Devices Description No Information Available Encounters Type Date Location Provider Dx Diagnosis Office Visit 03/24/2019 [facility] G47.33 Obstructive sleep 1:00p [facility] apnea (adult) [facility] (pediatric) E66.9 Obesity, unspecified F17.210 Nicotine dependence, cigarettes, uncomplicated Office Visit 03/03/2019 11:20a [facility] Victor M Messer R07.9 Chest pain , Of Mili Ross, DO unspecified FACC E11.9 Type 2 diabetes mellitus without complications I10 Essential (primary) hypertension G47.33 Obstructive sleep apnea (adult) (pediatric) E66.9 Obesity, unspecified Z72.0 Tobacco use E78.5 Hyperlipidemia, unspecified Office Visit 02/12/2019 10:00a [facility] Internal Charline R07.9 Chest pain, Jordan Omalley MD unspecified [facility] E11.9 Type 2 diabetes mellitus without complications I10 Essential (primary) hypertension G47.33 Obstructive sleep apnea (adult) (pediatric) E66.9 Obesity, unspecified F17.210 Nicotine dependence, cigarettes, uncomplicated M25.561 Pain in right knee Office Visit 01/05/2019 11:15a [facility] Mitchel De Jesus M25.561 Pain in at Radha Parnell MD right knee M17.11 Unilateral primary osteoarthritis, right knee Office Visit 12/30/2018 [facility] G47.33 Obstructive sleep 9:00a [facility] apnea (adult) [facility] (pediatric) F17.210 Nicotine dependence, cigarettes, uncomplicated E66.9 Obesity, unspecified G47.10 Hypersomnia, unspecified Z68.34 Body mass index (BMI) 34.0-34.9, adult Office Visit 12/17/2018 Carey Lamb S83.241D Oth tear of medial 9:45a [facility] [place] [place] meniscus, current [place] injury, r knee, subs Office Visit 11/24/2018 Carey Lamb S83.241A Oth tear of medial 10:00a [facility] [place] [place] meniscus, current [place] injury, r knee, init Office Visit 11/18/2018 [facility] Internal Rosa Elena Martins, E11.9 Type 2 diabetes 10:40a Medicine - [facility] mellitus without complications I10 Essential (primary) hypertension M25.461 Effusion, right knee F17.210 Nicotine dependence, cigarettes, uncomplicated Assessments Date Code Description Provider 03/24/2019 G47.33 Obstructive sleep apnea (adult) Mai Carvalho NP (pediatric) 03/24/2019 E66.9 Obesity, unspecified Mai Carvalho NP 03/24/2019 F17.210 Nicotine dependence, cigarettes, Mai Carvalho NP uncomplicated 2019 Z11.1 Encounter for screening for respiratory Nurse Visit A tuberculosis 03/16/2019 Z11.1 Encounter for screening for respiratory [...] E11.9 Type 2 diabetes mellitus without Victor Mleoncio Ross, DO FACC complications 03/03/2019 I10 Essential (primary) hypertension Victor M Ross, DO FACC 03/03/2019 G47.33 Obstructive sleep apnea (adult) Victor M Ross, DO FACC (pediatric) 03/03/2019 E66.9 Obesity, unspecified Victor M SDebbie Ross, DO FACC 03/03/2019 Z72.0 Tobacco use Victor M Ross, DO FACC 03/03/2019 E78.5 Hyperlipidemia, unspecified Victor M SDebbie Ross, DO FACC 02/12/2019 R07.9 Chest pain, [...] Martins MD uncomplicated Plan of Treatment Future Appointment(s):09/22/2019 9:30 am - Mai Carvalho NP at [facility]03/30/2019 10:15 am - Victor M Ross DO FACC at [place] [facility]06/28/2019 2:00 pm - Rosa Elena Martins MD at [facility] Internal Medicine - [facility]03/24/2019 - Mai Carvalho NPG47.33 Obstructive sleep apnea (adult) (pediatric)New Orders:Sleep-Homecare, Ordered: Follow up:6 monthsRecommendations:Keep up the good work with your BiPAP! If you have difficulty with your equipment, or need to replace your mask or hoses, please contact your homecare agency, [facility] . If you have any further questions, please call the [facility] at If you haveany sleepiness while driving you MUST avoid operating a vehicle or machinery. If you feel tired while driving, groover runner and take a nap or switch drivers. If you know you are sleepy and need to go somewhere, arrange for a ride or use public transportation. It is very important to not risk your safety or the safety of others.E66.9 Obesity, unspecifiedRecommendations:Keep up the good work with your weight loss efforts!F17.210 Nicotine dependence, cigarettes, uncomplicatedRecommendations:Great work cutting down on smoking! Quitting smoking is the best thing you can do for your lungs andoverall health. Functional Status Description No Information Available Mental Status Description No Information Available Referrals Refer to Reason for Referral Status Appt Date Darshan Hooper MD This office does not accept medicaid Sent [address] [place] [address] [phone] Andrew Burnett MD Sent [address] [facility] [address] [place] [address] [phone] Claude Agarwal MD [facility] Sent 03/03/2019 [address] [facility] [address] [place] [address] [phone] Adonis [place] MD painful swollen right knee, seen in ER last Scheduled month [address] [facility] [place] [address] [phone]
--- OUTSIDE RECORDS SUMMARY | 2019-04-21 16:55 | XMS REPORT ---
:1980 Author Organization [facility] Care Team Providers Name Role Phone Zaynab Hagen Primary Care Physician Unavailable Allergies, Adverse Reactions, Alerts Allergy Code CodeSystem Reaction Severity Criticality Status Start Substance Date Moderate Medications Medication Medication Medication Start Stop Route Dose Status Fill Code CodeSystem Date Date Instructions RxNorm Problems Problem Name Code CodeSystem Alternate Alternate Start End Status Narrative Code CodeSystem Date Date Schizoaffective 82359433 SNOMED-CT Active disorder, 05-15 Depressive type Schizoaffective 97752023 SNOMED-CT Active disorder, 05-15 Depressive type Relevant diagnostic tests/laboratory data Narrative No Information Procedures Procedure Code CodeSystem Target Date of Status Service Device Device Device Name Site Procedure Delivery Code Name UID Location Psychotherap [id number] SNOMED-CT () 2019-01-13 complete Mental y, 45 04 d Health- minutes with [facility] patient [address], [id number] Psychotherap [id number] SNOMED-CT () 2019-02-15 complete Mental y, 45 04 d Health- minutes with [facility] patient [address], [id number] Psychotherap [id number] SNOMED-CT () 2018-08-17 complete Mental y, 45 04 d Health- minutes with [facility] patient [address], [id number] Office or [id number] SNOMED-CT () 2018-11-09 complete Mental other 7 d Health- outpatient [facility] visit for [address], of an [facility] established [id number] patient, [id number] which requires at least 2 of these 3 quinteros components: An expanded problem focused history; An expanded problem focused examination; Medical decision making of low SNOMED-CT () 2018-06-17 complete Mental d Health[address], [id number] SNOMED-CT () 2018-09-04 complete Mental d [address], [id number] SNOMED-CT () 2018-12-10 complete Mental d [address], [id number] SNOMED-CT () 2018-05-26 complete Mental d [address], [id number] Encounters/Encounter Diagnoses Encounter Name Encounter Diagnosis Diagnosis Name Diagnosis Date of Service Code Code CodeSystem Diagnosis Delivery Location Psychotherapy - 97527 [id number] Schizoaffective SNOMED-CT 2019-02-15 Behavioral Individual 30 disorder, Health min Depressive type Clinic [address] [place] [address], [id number] Vital Signs No Information Social History Element Description Description Start End Code CodeSystem AdditionalInfo Date Date SexAssignedAtBirth Male 1980-0 M AdministrativeGender 03-18 Hospital Discharge Instructions Reason For Referral Medical Equipment FDA Assessments
[2019-04-21] MEDS ORDERED: Diazepam TAB(*) 5 MG PO ONE (17:17)
[2019-04-21] MEDS ORDERED: Ketorolac INJ* 30 MG/ML 1 ML VIAL IM ONE (17:17)
--- NOTE | 2019-04-21 17:17 | ED ---
Back Pain - HPI Summary HPI Summary: Patient complains of acute on chronic back pain 1 week. History of chronic back pain along upper thoracic spine and lumbar spine. States same pain 1 week but worse. Denies trauma, fever, cough, sore throat, CP, SOB, N/3/D, pain , change in urine, change in BM. Denies urinary retention, incontinence, leg pain or numbness and tingling in extremities. - History of Current Complaint Chief Complaint: EDBackInjuryPain Stated Complaint: BACK PAIN PER PT Time Seen by Provider: 04/21/19 17:03 Hx Obtained From: Patient Onset/Duration: Gradual Onset, Lasting Days Onset/Duration: Started Days Ago Timing: Constant Severity Initially: Severe Severity Currently: Severe Pain Intensity: 8 Pain Scale Used: 0-10 Numeric Character: Aching, Throbbing Aggravating Symptom(s): Movement, Bending Alleviating Symptom(s): Position Associated Signs And Symptoms: Positive: Negative - Allergies/Home Medications Allergies/Adverse Reactions: Allergies Allergy/AdvReac Type Severity Reaction Status Date / Time dairy Allergy GI Upset Uncoded 04/21/19 16:50 Home Medications: Home Medications Losartan TAB* [Cozaar TAB*] 25 mg PO DAILY 02/10/19 [History Confirmed 04/21/19] glipiZIDE TAB* [Glucotrol TAB*] 5 mg PO DAILY 02/10/19 [History Confirmed ] Cyclobenzaprine TAB* [Flexeril 10 MG TAB*] 10 mg PO TID PRN 7 Days #21 tab 04/21 [Rx] PMH/Surg Hx/FS Hx/Imm Hx Endocrine/Hematology History: Reports: Hx Diabetes - type2, Hx Anemia - mild Denies: Hx Anticoagulant Therapy, Hx Blood Disorders, Hx Blood Transfusions, Hx Bone Marrow Disease, Hx Systemic Lupus Erythematosus, Hx Sickle Cell Disease , Hx Thyroid Disease, Hx Unexplained Bleeding, Other Endocrine/Hematological Disorders Cardiovascular History: Reports: Hx Hypertension - on meds Denies: Hx Aneurysm, Hx Angina, Hx Angioplasty, Hx Auto Implanted Cardiovert Defib, Hx Cardiac Arrest, Hx Cardiomegaly, Hx Congenital Heart Disease, Hx Congestive Heart Failure, Hx Deep Vein Thrombosis, Hx Embolism, Hx Hypercholesterolemia, Hx Hypotension, Hx Pacemaker/ICD, Hx Peripheral Vascular Disease, Hx Rheumatic Fever, Hx Syncope, Hx Valvular Heart Disease, Other Cardiovascular Problems/Disorders Respiratory History: Reports: Hx Asthma, Hx Sleep Apnea, Other Respiratory Problems/Disorders - emphysema Denies: Hx Chronic Bronchitis, Hx Chronic Obstructive Pulmonary Disease (COPD ), Hx Cystic Fibrosis, Hx Lung Cancer, Hx Pleural Effusion, Hx Pneumonia, Hx Pulmonary Edema, Hx Pulmonary Embolism, Hx Seasonal Allergies GI History: Denies: Other GI Disorders History: Denies: Hx Acute Renal Failure, Hx Benign Prostatic Hyperplasia, Hx Chronic Renal Failure, Hx Dialysis, Hx Kidney Infection, Hx Kidney Stones, Hx Renal Disease Musculoskeletal History: Reports: Hx Back Problems, Other Musculoskeletal History - broken ankles when a child, according to patient Denies: Hx Arthritis, Hx Bursitis, Hx Congenital Bone Abnormalities, Hx Fibromyalgia, Hx Gout, Hx Orthopedic Injury, Hx Osteoporosis, Hx Scoliosis, Hx Tendonitis Sensory History: Reports: Hx Cataracts - [place], Hx Contacts or Glasses - glasses Denies: Hx Eye Injury, Hx Eye Prosthesis, Hx Glaucoma, Hx Legally Blind, Hx Macular Degeneration, Hx Vision Problem, Hx Deafness, Hx Hearing Aid, Hx Hearing Problem, Other Sensory Impairments Opthamlomology History: Reports: Hx Cataracts - [place], Hx Contacts or Glasses - glasses Denies: Hx Eye Injury, Hx Eye Prosthesis, Hx Glaucoma, Hx Legally Blind, Hx Macular Degeneration, Hx Vision Problem, Other Sensory Impairments Neurological History: Denies: Hx Dementia, Hx Headaches, Hx Migraine, Hx Nerve Disease, Hx Seizures , Hx Spinal Cord Injury, Hx Transient Ischemic Attacks (TIA), Other Neuro Impairments/Disorders Psychiatric History: Reports: Hx Anxiety - on meds, Hx Depression - on meds, Hx Post Traumatic Stress Disorder, Hx Inpatient Treatment, Hx Community Mental Health Tx, Hx Schizophrenia, Hx Suicide Attempt, Hx of Violent Episodes Against Others, Hx Substance Abuse Denies: Hx Attention Deficit Hyperactivity Disorder, Hx Eating Disorder, Hx Panic Disorder, Hx Bipolar Disorder - Cancer History Hx Chemotherapy: No Hx Radiation Therapy: No Hx Palliative Cancer Treatment: No - Surgical History Surgery Procedure, Year, and Place: right cataract, 2014, [place]. LEFT CATARACT Hx Anesthesia Reactions: No - Immunization History Date of Influenza Vaccine: none Infectious Disease History: No Infectious Disease History: Denies: Hx Clostridium Difficile, Hx Hepatitis, Hx Human Immunodeficiency Virus (HIV), Hx of Known/Suspected MRSA, Hx Shingles, Hx Tuberculosis, Hx Known/ Suspected VRE, Hx Known/Suspected VRSA, History Other Infectious Disease, Traveled Outside the [place] in Last 30 Days - Family History Known Family History: Positive: Cardiac Disease, Hypertension, Other - cancer mother - Social History Alcohol Use: None Alcohol Amount: patient states he has not drank in 2 mths Hx Substance Use: Yes Substance Use Type: Reports: Marijuana Substance Use Comment - Amount & Last Used: "little bit of weed here and there. " Hx Tobacco Use: Yes Smoking Status (MU): Heavy Every Day Tobacco Smoker Type: Cigarettes Amount Used/How Often: pack a day for 25 years Length of Time of Smoking/Using Tobacco: 16 years Have You Smoked in the Last Year: Yes Review of Systems Constitutional: Negative Eyes: Negative ENT: Negative Cardiovascular: Negative Respiratory: Negative Gastrointestinal: Negative Genitourinary: Negative Musculoskeletal: Other Skin: Negative Neurological/Mental Status: Negative Psychological: Normal All Other Systems Reviewed And Are Negative: Yes Physical Exam - Summary Physical Exam Summary: No ecchymosis, erythema, deformity, swelling, masses noted to spine. Tenderness to palpation in paraspinal muscles of thoracic and lumbar spine. Triage Information Reviewed: Yes Vital Signs On Initial Exam: Initial Vitals Temp Pulse Resp BP Pulse Ox 97.6 F 74 18 175/107 100 04/21/19 16:46 04/21/19 16:46 04/21/19 16:46 04/21/19 16:46 04/21/19 16:46 Vital Signs Reviewed: Yes Appearance: Positive: Well-Appearing Skin: Positive: Warm Head/Face: Positive: Normal Head/Face Inspection Eyes: Positive: Normal Neck: Positive: Supple Respiratory/Lung Sounds: Positive: Clear to Auscultation Cardiovascular: Positive: Normal Abdomen Description: Positive: Nontender Musculoskeletal: Positive: Normal Neurological: Positive: Normal Psychiatric: Positive: Normal AVPU Assessment: Alert - [place] Coma Scale Best Eye Response: 4 - Spontaneous Best Motor Response: 6 - Obeys Commands Best Verbal Response: 5 - Oriented Coma Scale Total: 15 Procedures - Sedation Patient Received Moderate/Deep Sedation with Procedure: No Diagnostics - Vital Signs Vital Signs Temp Pulse Resp BP Pulse Ox 04/21/19 16:46 97.6 F 74 18 175/107 100 - Laboratory Lab Statement: Any lab studies that have been ordered have been reviewed, and results considered in the medical decision making process. Back Pain Course/Dx - Course Course Of Treatment: Patient complains of acute on chronic back pain 1 week. History of chronic back pain along upper thoracic spine and lumbar spine. States same pain 1 week but worse. Denies trauma, fever, cough, sore throat, CP, SOB, N/3/D, pain, change in urine, change in BM. Denies urinary retention, incontinence, leg pain or numbness and tingling in extremities. Vital signs within normal limits. Symptoms improved with Valium 5 mg by mouth and Toradol 30 mg IM. - Diagnoses Provider Diagnoses: Acute exacerbation of chronic low back pain Discharge ED - Sign-Out/Discharge Documenting (check all that apply): Patient Departure - Discharge Plan Condition: Stable Disposition: HOME Prescriptions: Cyclobenzaprine TAB* [Flexeril 10 MG TAB*] 10 mg PO TID PRN 7 Days #21 tab PRN Reason: Spasms Patient Education Materials: Chronic Back Pain (DC) Forms: *Work Release Referrals: Rosa Elena Martins MD [Primary Care Provider] - Additional Instructions: Alternate ibuprofen 600 mg with Tylenol 650 mg every 3 hours for back pain. Take Flexeril as directed for muscle spasm in back. Follow-up with primary care for further evaluation of chronic back pain. - Billing Disposition and Condition Condition: STABLE Disposition: Home - Attestation Statements Provider Attestation: I was available for consult. This patient was seen by the MICHELLE. The patient was not presented to, seen by, or examined by me. Jalen Longoria MD
[2019-04-21 19:11] VITALS: BP 175/117
== END 2019-04-21 19:10 | disposition home or self-care (01) ==
LOC: ED 16:45
DX: M54.5 Low back pain (principal); G89.29 Other chronic pain; E11.9 Type 2 diabetes mellitus without complications; D64.9 Anemia, unspecified; I10 Essential (primary) hypertension; J45.909 Unspecified asthma, uncomplicated; F41.9 Anxiety disorder, unspecified; F43.10 Post-traumatic stress disorder, unspecified; F20.9 Schizophrenia, unspecified; F32.9 Major depressive disorder, single episode, unspecified; F17.210 Nicotine dependence, cigarettes, uncomplicated; Z79.84 Long term (current) use of oral hypoglycemic drugs; Z79.899 Other long term (current) drug therapy
CPT/HCPCS: 96372; 99282; A9270-GY; J1885

== ENCOUNTER 2021-10-05 23:16 | Inpatient (IN) ==
[2021-10-06 01:31] LABS: ABS Lymphocytes 3.6 10^3/ul (1.0-4.8); ABS Monocytes 0.9 10^3/ul (0-0.8); ABS Neutrophils 9.5 10^3/ul (1.5-7.7); Eosinophil % 0.1 %; Hematocrit 49 % (42-52); Lymphocyte % 25.7 %; Mean Corpuscular HGB Conc 33 g/dL (31-36); Mean Corpuscular Hemoglobin 27 pg (27-31); Mean Corpuscular Volume 83 fL (80-94); Mean Platelet Volume 9.7 fL (7.4-10.4); Nucleated Red Blood Cells % 0.1; Platelet Count 261 10^3/uL (150-450); Red Blood Count 5.94 10^6 /uL (4.18-5.48); Red Cell Distribution Width 14 % (10-15); White Blood Count 14.1 10^3/uL (3.5-10.8)
[2021-10-06 01:36] LABS: INR 1.09 (0.89-1.11)
[2021-10-06] MEDS ORDERED: Morphine 4 MG/ML VIAL (1 ml) IV ONE (01:49)
[2021-10-06] MEDS ORDERED: Lactated Ringers 1000 ml BAG 1,000 ML IV ONE (01:49)
[2021-10-06] MEDS ORDERED: Ondansetron 4 mg VIAL 2 MG/ML 2 ml VIAL IV ONE (01:49)
[2021-10-06 02:17] LABS: Albumin 4.6 g/dL (3.2-5.2); C Reactive Protein 14.46 mg/L (<8.01); Calcium 10.5 mg/dL (8.6-10.3); Globulin 4.8 g/dL (2-4); Potassium 4.8 mmol/L (3.5-5.0); Total Bilirubin 0.5 mg/dL (0.2-1.0); Total Protein 9.4 g/dL (6.4-8.9); eGFR CKD-EPI 88.9 (>60)
[2021-10-06] MEDS ORDERED: Iodixanol (CONTRAST) 320 MG/ML 100 ML SDV IV ONE (02:31)
[2021-10-06] MEDS ORDERED: Dextrose 50% Syringe 50 ml 25 GM/50 ML SYRINGE IV PUSH PRN ×2 (03:32→05:32)
[2021-10-06] MEDS ORDERED: Insulin Infusion 100unit/100mL 100 UNIT/100 ML BAG IV SCH ×2 (04:00→06:00)
[2021-10-06] MEDS ORDERED: NORMOSOL-R pH 7.4 1000 mL BAG 1,000 ML IV SCH (05:00)
[2021-10-06] MEDS ORDERED: Ondansetron 4 mg VIAL 2 MG/ML 2 ml VIAL IV PRN (05:31)
[2021-10-06 05:33] LABS: Urine Appearance Clear; Urine Bilirubin Negative (Negative); Urine Blood Negative (Negative); Urine Color Colorless; Urine Glucose 2+ (500mg/dL) (Negative); Urine Ketones 2+ (40mg/dL) (Negative); Urine Nitrite Negative (Negative); Urine Protein Trace (Negative); Urine Urobilinogen 0.2 (Negative) (Negative); Urine pH 5.5 (5.0-9.0)
[2021-10-06 05:53] LABS: Urine Bacteria Absent (Absent); Urine Red Blood Cell Trace(0-2/hpf) (Absent); Urine White Blood Cell Absent (Absent)
[2021-10-06 06:06] LABS: Insulin 5.8 mcIU/mL (2.0-16.0)
[2021-10-06] MEDS: Enoxaparin 40 MG/0.4 ML SYR SUBCUT SCH (06:34)
[2021-10-06 06:43] LABS: TSH Ultra Thyroid Stim Horm 4.35 mcIU/mL (0.34-5.60)
[2021-10-06 06:46] LABS: Free T3 3.6 pg/mL (2.5-3.9); Free T4 0.88 ng/dL (0.61-1.12)
[2021-10-06 07:55] LABS: Calcium 10.2 mg/dL (8.6-10.3); Potassium 3.9 mmol/L (3.5-5.0); eGFR CKD-EPI 111.7 (>60)
[2021-10-06] MEDS ORDERED: NS 0.9% 1000 ml BAG 1,000 ML IV ONE (08:39)
[2021-10-06] MEDS: D5W 1/2 NS KCl 20 meq 1000 ml 1,000 ML IV SCH ×2 (08:41→17:10)
[2021-10-06 11:14] LABS: Magnesium 1.9 mg/dL (1.9-2.7); Potassium 3.6 mmol/L (3.5-5.0)
[2021-10-06 11:20] LABS: Phosphorus 2.6 mg/dL (2.5-5.0); eGFR CKD-EPI 115.5 (>60)
[2021-10-06] MEDS ORDERED: Potassium Chloride LIQUID 20 MEQ/15 ML LIQUID PO ONE (11:24)
[2021-10-06 14:32] LABS: Urine Opiates Screen Presumptive Positive (None Detect)
[2021-10-06 15:07] LABS: High Sensitivity Troponin 1 Hr 12 pg/mL (<20)
[2021-10-06 15:23] LABS: Calcium 8.9 mg/dL (8.6-10.3); Magnesium 1.9 mg/dL (1.9-2.7); eGFR CKD-EPI 120.1 (>60)
[2021-10-06 15:27] LABS: Phosphorus 2.3 mg/dL (2.5-5.0); Potassium 4.5 mmol/L (3.5-5.0)
[2021-10-06 15:28] LABS: Urine Benzodiazepine Screen None Detected (None Detect); Urine Cannabinoids Screen Presumptive Positive (None Detect)
[2021-10-06] MEDS ORDERED: Sodium Phosphate IV 10 MMOLE in NS 0.9% 250 ml 250 ML IV ONE (16:19)
[2021-10-06 18:53] LABS: Calcium 8.8 mg/dL (8.6-10.3); Magnesium 1.8 mg/dL (1.9-2.7); Potassium 3.8 mmol/L (3.5-5.0)
[2021-10-06] MEDS ORDERED: Insulin GLARGINE 100 un/ml 10 ml VIAL SUBCUT ONE (19:02)
[2021-10-07 00:44] LABS: CO2 Carbon Dioxide 16 mmol/L (22-32); Calcium 7.7 mg/dL (8.6-10.3); Chloride 105 mmol/L (101-111); Sodium 132 mmol/L (135-145)
[2021-10-07 00:48] LABS: Anion Gap 11 mmol/L (2-11)
[2021-10-07 00:50] LABS: Blood Urea Nitrogen 9 mg/dL (6-24); Glucose 312 mg/dL (70-100)
[2021-10-07 01:45] LABS: Magnesium 1.6 mg/dL (1.9-2.7); Phosphorus 2.6 mg/dL (2.5-5.0); Potassium Redraw 3.7 mmol/L (3.5-5.0)
[2021-10-07] MEDS ORDERED: Magnesium Sulfate 2 gm BAG 2 GM/50 ML BAG IVPB ONE (01:57)
[2021-10-07 04:21] LABS: ABS Lymphocytes 3.8 10^3/ul (1.0-4.8); ABS Monocytes 0.9 10^3/ul (0-0.8); ABS Neutrophils 6.5 10^3/ul (1.5-7.7); Eosinophil % 0.4 %; Hematocrit 37 % (42-52); Hemoglobin 12.2 g/dL (14.0-18.0); Lymphocyte % 33.8 %; Mean Corpuscular HGB Conc 33 g/dL (31-36); Mean Corpuscular Hemoglobin 27 pg (27-31); Mean Corpuscular Volume 83 fL (80-94); Mean Platelet Volume 9.9 fL (7.4-10.4); Nucleated Red Blood Cells % 0.1; Platelet Count 215 10^3/uL (150-450); Red Cell Distribution Width 14 % (10-15); White Blood Count 11.3 10^3/uL (3.5-10.8)
[2021-10-07 04:46] LABS: Calcium 8.6 mg/dL (8.6-10.3); HDL Cholesterol 29.8 mg/dL; Magnesium 2.9 mg/dL (1.9-2.7); Potassium 3.6 mmol/L (3.5-5.0); eGFR CKD-EPI 120.7 (>60)
[2021-10-07] MEDS: Enoxaparin 40 MG/0.4 ML SYR SUBCUT SCH (05:45)
[2021-10-07] MEDS ORDERED: Insulin GLARGINE 100 un/ml 10 ml VIAL SUBCUT ONE (08:54)
[2021-10-07] MEDS ORDERED: Potassium Chlor 20 meq TAB.ER PO ONE (08:54)
[2021-10-07 12:39] LABS: Hematocrit 38 % (42-52); Hemoglobin 12.5 g/dL (14.0-18.0)
[2021-10-07 12:46] LABS: Calcium 8.8 mg/dL (8.6-10.3); Potassium 3.8 mmol/L (3.5-5.0)
[2021-10-07] MEDS ORDERED: Insulin GLARGINE 100 un/ml 10 ml VIAL SUBCUT SCH (21:00)
[2021-10-07] MEDS: Insulin GLARGINE 100 un/ml 10 ml VIAL SUBCUT SCH (21:02)
[2021-10-07] MEDS: Senna TAB 8.6 mg TAB PO SCH (21:02)
[2021-10-08 06:32] LABS: ABS Eosinophils 0.1 10^3/ul (0-0.6); ABS Lymphocytes 3.9 10^3/ul (1.0-4.8); ABS Monocytes 0.9 10^3/ul (0-0.8); ABS Neutrophils 5.2 10^3/ul (1.5-7.7); Hematocrit 36 % (42-52); Hemoglobin 12.5 g/dL (14.0-18.0); Lymphocyte % 38.3 %; Mean Corpuscular HGB Conc 35 g/dL (31-36); Mean Corpuscular Hemoglobin 28 pg (27-31); Mean Corpuscular Volume 81 fL (80-94); Mean Platelet Volume 9.7 fL (7.4-10.4); Platelet Count 212 10^3/uL (150-450); Red Blood Count 4.47 10^6 /uL (4.18-5.48); Red Cell Distribution Width 14 % (10-15); White Blood Count 10.1 10^3/uL (3.5-10.8)
[2021-10-08 06:43] LABS: Calcium 8.9 mg/dL (8.6-10.3); Potassium 3.5 mmol/L (3.5-5.0)
[2021-10-08 06:48] LABS: eGFR CKD-EPI 121.2 (>60)
[2021-10-08] MEDS: Enoxaparin 40 MG/0.4 ML SYR SUBCUT SCH (07:37)
[2021-10-08] MEDS ORDERED: Regadenoson 0.4 MG/5 ML SYRINGE ONE (09:34)
[2021-10-08] MEDS: Senna TAB 8.6 mg TAB PO SCH (20:57)
[2021-10-08] MEDS: Insulin GLARGINE 100 un/ml 10 ml VIAL SUBCUT SCH (22:43)
[2021-10-09] MEDS: Enoxaparin 40 MG/0.4 ML SYR SUBCUT SCH (06:07)
[2021-10-09 12:41] VITALS: BP 127/66
== END 2021-10-09 13:37 | disposition home or self-care (01) | DRG 639 ==
LOC: ED 23:16 → EDHOLD 10-06 05:28 → SUATTDRO 10-06 05:28 → ICU 10-06 08:10 → MEDTELE 10-07 22:28
PROVIDERS: ADMIT Student in an Organized Health Care Education/Training Program; ATTEND Internal Medicine